=== PATIENT | female | born 1940 | race Caucasian/White ===

== ENCOUNTER 2017-07-29 00:18 | Day surgery (SDC) | payer MEDICARE, OTHER ==
[~2017-07-29 00:18] MED LIST: ACET325 PO; AMLO10 PO; AMOCLA875 PO; AMOXICILLIN; ASPI325 PO; ASPI325EC PO; ATOR10 PO; AZAT50 PO; AZIT250 PO; BUME2 PO; Benicar5 MG PO; CALC.25 PO; CALCIUM; CARV25 PO; CARV6.25 PO; CETI10; CHOL10002 PO; CLOP75 PO; CYAN100 PO; DILT180 PO; ENOX60I SUBQ; ESOM20 PO; ESOMEPRAZOLE 40 MG; FAMO20 PO; FENO145 PO; FENT50TP TOP; FERR325 PO; FOLI400 PO; FURO80 PO; Ferrous Sulfat324 MG PO; GABA100 PO; GABA300 PO; GEMF600; HYDCHL25 PO; HYDMOR2 PO; HYDR1TAB94 PO; LAVAZA; LOSA50; LOSARTAN POTAS100 MG PO; MAGCHL64ER PO; METO100 PO; METO100ER; METO100ER PO; METO2.5 PO; METO50 PO; MIRT15 PO; OLME20-12. PO; OMEG1CAP30; OMEG1CAP30 PO; OXYACE5T PO; OXYC10ER PO; OXYC5 PO; PANT40 PO; PARO20; POTA10T PO; POTCHL10ER PO; POTCHL20ER PO; PREDNISONE; PROCRIT; PROM25 PO; Procrit2000 UNIT/ INJ; Questran4 GM GT; RANI150; REMICAID; RXHYD5325 PO; Remicade100 MG IV; SENN187; SERT25 PO; SERT50 PO; SODBIC650 PO; TRAZ50 PO; WARF5 PO; ZOLP5 PO; Zithromax250 MG PO; [UNRECOGNIZED DRUG - REMARK]; [UNRECOGNIZED DRUG - REMARK]; remicade
[2017-07-29] MEDS ORDERED: ASPI81CH PO (14:38)
[2017-07-29] MEDS ORDERED: GABA300 PO (14:45)
[2017-09-08] MEDS ORDERED: MAGCHL64ER PO (14:20)
[2017-09-08] MEDS ORDERED: POTA10T PO (14:21)
[2017-09-08] MEDS ORDERED: CHOL10002 PO (14:22)
[2017-09-08] MEDS ORDERED: FAMO20 PO (14:23)
[2017-09-08] MEDS ORDERED: FERSU90EL PO (14:24)
[2017-09-08] MEDS ORDERED: ZOLP5 PO (14:25)
[2017-09-09] MEDS ORDERED: GABA300 PO (19:09)
[2017-09-10] MEDS ORDERED: Coreg12.5 MG PO (17:35)
[2017-09-10] MEDS ORDERED: ASPI325 PO (17:39)
[2017-09-10] MEDS ORDERED: AMLO5 PO (18:27)
[2018-04-12] MEDS ORDERED: Doxycycline Hy100 MG PO (16:01)
[2018-04-14] MEDS ORDERED: BUME2 PO (14:08)
[2018-04-14] MEDS ORDERED: DOXY100 PO (14:09)
== END 2017-07-29 16:35 | disposition home or self-care (01) ==
LOC: ATC 00:18
DX: K50.012 Crohn's disease of small intestine with intestinal obstruction (principal); N18.3 Chronic kidney disease, stage 3 (moderate); D63.1 Anemia in chronic kidney disease; Z87.891 Personal history of nicotine dependence
CPT/HCPCS: 96413; 96415; J1642; J1720; J7050; Q0163; Q5102-ZB

== ENCOUNTER 2017-08-05 13:40 | Day surgery (SDC) | payer MEDICARE, OTHER ==
[~2017-08-05 13:40] MED LIST changes: +ASPI81CH PO
[2017-08-05 16:58] LABS: Percent Saturation 7.4 % (15.0-50.0)
[2017-08-05 17:17] LABS: Albumin, Blood 2.9 g/dL (3.4-5.0); Anion Gap 9 mmol/L (6-16); Blood Urea Nitrogen 55 mg/dL (8-24); Bun/Creatinine Ratio 17.2 (12.0-20.0); CO2, Blood 26 mmol/L (21-32); Calcium, Blood 9.2 mg/dL (8.5-10.1); Chloride, Blood 105 mmol/L (98-108); Creatinine, Blood 3.19 mg/dL (0.40-1.00); Glomerular Filtration Rate 15 (60-); Glucose, Blood 99 mg/dL (70-99); Phosphorus, Blood 4.4 mg/dL (2.5-4.9); Potassium, Blood 4.9 mmol/L (3.5-5.5); Sodium, Blood 140 mmol/L (136-145)
[2017-09-08] MEDS ORDERED: MAGCHL64ER PO (14:20)
[2017-09-08] MEDS ORDERED: POTA10T PO (14:21)
[2017-09-08] MEDS ORDERED: CHOL10002 PO (14:22)
[2017-09-08] MEDS ORDERED: FAMO20 PO (14:23)
[2017-09-08] MEDS ORDERED: FERSU90EL PO (14:24)
[2017-09-08] MEDS ORDERED: ZOLP5 PO (14:25)
[2017-09-09] MEDS ORDERED: GABA300 PO (19:09)
[2017-09-10] MEDS ORDERED: Coreg12.5 MG PO (17:35)
[2017-09-10] MEDS ORDERED: ASPI325 PO (17:39)
[2017-09-10] MEDS ORDERED: AMLO5 PO (18:27)
[2018-04-12] MEDS ORDERED: Doxycycline Hy100 MG PO (16:01)
[2018-04-14] MEDS ORDERED: BUME2 PO (14:08)
[2018-04-14] MEDS ORDERED: DOXY100 PO (14:09)
== END 2017-08-05 16:25 | disposition home or self-care (01) ==
LOC: ATC 13:40
PROVIDERS: Internal Medicine Nephrology
DX: N18.3 Chronic kidney disease, stage 3 (moderate) (principal); D63.1 Anemia in chronic kidney disease; N25.81 Secondary hyperparathyroidism of renal origin; E55.9 Vitamin D deficiency, unspecified; E78.00 Pure hypercholesterolemia, unspecified; D51.8 Other vitamin B12 deficiency anemias; D52.8 Other folate deficiency anemias; D50.9 Iron deficiency anemia, unspecified; I08.3 Combined rheumatic disorders of mitral, aortic and tricuspid valves
CPT/HCPCS: 36591; 80069; 82607; 82728; 82746; 83540; 83550; 85018; 93306; J1642

== ENCOUNTER 2017-08-11 00:47 | Day surgery (SDC) | payer MEDICARE, OTHER ==
[2017-08-11] MEDS ORDERED: CYCL10 PO (14:49)
[2017-08-11 15:46] LABS: Albumin, Blood 3.2 g/dL (3.4-5.0); Anion Gap 9 mmol/L (6-16); Blood Urea Nitrogen 52 mg/dL (8-24); Bun/Creatinine Ratio 17.6 (12.0-20.0); CO2, Blood 24 mmol/L (21-32); Calcium, Blood 9.1 mg/dL (8.5-10.1); Chloride, Blood 103 mmol/L (98-108); Creatinine, Blood 2.96 mg/dL (0.40-1.00); Glomerular Filtration Rate 16 (60-); Glucose, Blood 85 mg/dL (70-99); Phosphorus, Blood 5.1 mg/dL (2.5-4.9); Potassium, Blood 5.5 mmol/L (3.5-5.5); Sodium, Blood 136 mmol/L (136-145)
[2017-09-08] MEDS ORDERED: MAGCHL64ER PO (14:20)
[2017-09-08] MEDS ORDERED: POTA10T PO (14:21)
[2017-09-08] MEDS ORDERED: CHOL10002 PO (14:22)
[2017-09-08] MEDS ORDERED: FAMO20 PO (14:23)
[2017-09-08] MEDS ORDERED: FERSU90EL PO (14:24)
[2017-09-08] MEDS ORDERED: ZOLP5 PO (14:25)
[2017-09-09] MEDS ORDERED: GABA300 PO (19:09)
[2017-09-10] MEDS ORDERED: Coreg12.5 MG PO (17:35)
[2017-09-10] MEDS ORDERED: ASPI325 PO (17:39)
[2017-09-10] MEDS ORDERED: AMLO5 PO (18:27)
[2018-04-12] MEDS ORDERED: Doxycycline Hy100 MG PO (16:01)
[2018-04-14] MEDS ORDERED: BUME2 PO (14:08)
[2018-04-14] MEDS ORDERED: DOXY100 PO (14:09)
== END 2017-08-11 14:55 | disposition home or self-care (01) ==
LOC: ATC 00:47
PROVIDERS: Internal Medicine Nephrology
DX: N18.4 Chronic kidney disease, stage 4 (severe) (principal); D63.1 Anemia in chronic kidney disease; N25.81 Secondary hyperparathyroidism of renal origin; E55.9 Vitamin D deficiency, unspecified
CPT/HCPCS: 36591; 80069; 85018; J1642

== ENCOUNTER 2017-08-13 00:49 | Day surgery (SDC) | payer MEDICARE, OTHER ==
[~2017-08-13 00:49] MED LIST changes: +CYCL10 PO
[2017-09-08] MEDS ORDERED: MAGCHL64ER PO (14:20)
[2017-09-08] MEDS ORDERED: POTA10T PO (14:21)
[2017-09-08] MEDS ORDERED: CHOL10002 PO (14:22)
[2017-09-08] MEDS ORDERED: FAMO20 PO (14:23)
[2017-09-08] MEDS ORDERED: FERSU90EL PO (14:24)
[2017-09-08] MEDS ORDERED: ZOLP5 PO (14:25)
[2017-09-09] MEDS ORDERED: GABA300 PO (19:09)
[2017-09-10] MEDS ORDERED: Coreg12.5 MG PO (17:35)
[2017-09-10] MEDS ORDERED: ASPI325 PO (17:39)
[2017-09-10] MEDS ORDERED: AMLO5 PO (18:27)
[2018-04-12] MEDS ORDERED: Doxycycline Hy100 MG PO (16:01)
[2018-04-14] MEDS ORDERED: BUME2 PO (14:08)
[2018-04-14] MEDS ORDERED: DOXY100 PO (14:09)
== END 2017-08-13 14:20 | disposition home or self-care (01) ==
LOC: ATC 00:49
DX: E87.5 Hyperkalemia (principal); Z45.2 Encounter for adjustment and management of vascular access device; I12.9 Hypertensive chronic kidney disease with stage 1 through stage 4 chronic kidney disease, or unspecified chronic kidney disease; N18.4 Chronic kidney disease, stage 4 (severe); D63.1 Anemia in chronic kidney disease; N25.81 Secondary hyperparathyroidism of renal origin; D50.9 Iron deficiency anemia, unspecified; E86.9 Volume depletion, unspecified; R80.9 Proteinuria, unspecified; I70.1 Atherosclerosis of renal artery; E87.2 Acidosis; E78.00 Pure hypercholesterolemia, unspecified; E55.9 Vitamin D deficiency, unspecified; Z79.899 Other long term (current) drug therapy; Z79.01 Long term (current) use of anticoagulants
CPT/HCPCS: 36591; 84132; J1642

== ENCOUNTER 2017-08-18 00:28 | Day surgery (SDC) | payer MEDICARE, OTHER ==
[2017-08-18 16:08] LABS: Albumin, Blood 2.9 g/dL (3.4-5.0); Anion Gap 10 mmol/L (6-16); Blood Urea Nitrogen 52 mg/dL (8-24); Bun/Creatinine Ratio 16.5 (12.0-20.0); CO2, Blood 22 mmol/L (21-32); Chloride, Blood 107 mmol/L (98-108); Creatinine, Blood 3.16 mg/dL (0.40-1.00); Glomerular Filtration Rate 15 (60-); Glucose, Blood 91 mg/dL (70-99); Phosphorus, Blood 5.7 mg/dL (2.5-4.9); Potassium, Blood 4.9 mmol/L (3.5-5.5); Sodium, Blood 139 mmol/L (136-145)
[2017-09-08] MEDS ORDERED: MAGCHL64ER PO (14:20)
[2017-09-08] MEDS ORDERED: POTA10T PO (14:21)
[2017-09-08] MEDS ORDERED: CHOL10002 PO (14:22)
[2017-09-08] MEDS ORDERED: FAMO20 PO (14:23)
[2017-09-08] MEDS ORDERED: FERSU90EL PO (14:24)
[2017-09-08] MEDS ORDERED: ZOLP5 PO (14:25)
[2017-09-09] MEDS ORDERED: GABA300 PO (19:09)
[2017-09-10] MEDS ORDERED: Coreg12.5 MG PO (17:35)
[2017-09-10] MEDS ORDERED: ASPI325 PO (17:39)
[2017-09-10] MEDS ORDERED: AMLO5 PO (18:27)
[2018-04-12] MEDS ORDERED: Doxycycline Hy100 MG PO (16:01)
[2018-04-14] MEDS ORDERED: BUME2 PO (14:08)
[2018-04-14] MEDS ORDERED: DOXY100 PO (14:09)
== END 2017-08-18 15:10 | disposition home or self-care (01) ==
LOC: ATC 00:28
PROVIDERS: Internal Medicine Nephrology
DX: E87.5 Hyperkalemia (principal); I12.9 Hypertensive chronic kidney disease with stage 1 through stage 4 chronic kidney disease, or unspecified chronic kidney disease; N18.4 Chronic kidney disease, stage 4 (severe); D63.1 Anemia in chronic kidney disease; N25.81 Secondary hyperparathyroidism of renal origin; D50.9 Iron deficiency anemia, unspecified; E86.9 Volume depletion, unspecified; R80.9 Proteinuria, unspecified; I70.1 Atherosclerosis of renal artery; E87.2 Acidosis; E78.00 Pure hypercholesterolemia, unspecified; E55.9 Vitamin D deficiency, unspecified; Z79.899 Other long term (current) drug therapy
CPT/HCPCS: 36591; 80069; 85018; J1642

== ENCOUNTER 2017-08-28 00:17 | Day surgery (SDC) | payer MEDICARE, OTHER ==
[2017-08-29] MEDS ORDERED: SODBIC650 PO (17:50)
== END 2017-08-28 15:58 | disposition home or self-care (01) ==
LOC: ATC 00:17
DX: Z45.2 Encounter for adjustment and management of vascular access device (principal); I12.9 Hypertensive chronic kidney disease with stage 1 through stage 4 chronic kidney disease, or unspecified chronic kidney disease; D64.9 Anemia, unspecified; N18.4 Chronic kidney disease, stage 4 (severe); D63.1 Anemia in chronic kidney disease; N25.81 Secondary hyperparathyroidism of renal origin; E78.00 Pure hypercholesterolemia, unspecified; E55.9 Vitamin D deficiency, unspecified
CPT/HCPCS: 36593; 99211; J1642; J2997

== ENCOUNTER 2017-08-29 06:51 | Day surgery (SDC) | payer MEDICARE, OTHER ==
[2017-08-29 11:26] LABS: Hematocrit 20.5 % (33.0-51.0); Hemoglobin 6.2 g/dL (11.5-16.0)
[2017-08-29 11:42] LABS: Albumin, Blood 2.3 g/dL (3.4-5.0); Anion Gap 7 mmol/L (6-16); Blood Urea Nitrogen 58 mg/dL (8-24); CO2, Blood 22 mmol/L (21-32); Calcium, Blood 8.9 mg/dL (8.5-10.1); Chloride, Blood 111 mmol/L (98-108); Glomerular Filtration Rate 17 (60-); Glucose, Blood 81 mg/dL (70-99); Phosphorus, Blood 4.5 mg/dL (2.5-4.9); Sodium, Blood 140 mmol/L (136-145)
[2017-08-29] MEDS ORDERED: SODBIC650 PO (17:50)
[2017-08-30] MEDS ORDERED: LOSA50 PO (10:07)
[2017-09-08] MEDS ORDERED: MAGCHL64ER PO (14:20)
[2017-09-08] MEDS ORDERED: POTA10T PO (14:21)
[2017-09-08] MEDS ORDERED: CHOL10002 PO (14:22)
[2017-09-08] MEDS ORDERED: FAMO20 PO (14:23)
[2017-09-08] MEDS ORDERED: FERSU90EL PO (14:24)
[2017-09-08] MEDS ORDERED: ZOLP5 PO (14:25)
[2017-09-09] MEDS ORDERED: GABA300 PO (19:09)
[2017-09-10] MEDS ORDERED: Coreg12.5 MG PO (17:35)
[2017-09-10] MEDS ORDERED: ASPI325 PO (17:39)
[2017-09-10] MEDS ORDERED: AMLO5 PO (18:27)
== END 2017-08-29 23:25 | disposition home or self-care (01) ==
LOC: ATC 06:51
PROVIDERS: Internal Medicine Nephrology
DX: I12.9 Hypertensive chronic kidney disease with stage 1 through stage 4 chronic kidney disease, or unspecified chronic kidney disease (principal); N18.4 Chronic kidney disease, stage 4 (severe); D63.1 Anemia in chronic kidney disease; N25.81 Secondary hyperparathyroidism of renal origin; D50.9 Iron deficiency anemia, unspecified; E86.9 Volume depletion, unspecified; R80.9 Proteinuria, unspecified; I70.1 Atherosclerosis of renal artery; E87.2 Acidosis; E78.00 Pure hypercholesterolemia, unspecified; E87.5 Hyperkalemia; E55.9 Vitamin D deficiency, unspecified
CPT/HCPCS: 36591; 80069; 85014; 85018; J1642

== ENCOUNTER 2017-08-29 12:20 | Observation (INO) | payer MEDICARE, OTHER ==
[~2017-08-29] VITALS: Ht 157.5 cm; Wt 63.5 kg
[2017-08-29] MEDS ORDERED: SODBIC650 PO (17:50)
[2017-08-30 06:16] LABS: BASOPHILS ABSOLUTE AUTO 0.03 K/mm3 (0.00-0.23); BASOPHILS PERCENT AUTO 0 % (0-2); EOSINOPHILS ABSOLUTE AUTO 0.38 K/mm3 (0.00-0.68); EOSINOPHILS PERCENT AUTO 4 % (0-6); Hematocrit 24.5 % (33.0-51.0); Hemoglobin 7.7 g/dL (11.5-16.0); Mean Corpuscular HGB 32.8 pg (26.0-34.0); Mean Corpuscular HGB Conc 31.4 g/dL (31.5-36.5); Mean Corpuscular Volume 104 fL (80-100); Mean Platelet Volume 10.4 fL (9.1-12.4); NRBC ABSOLUTE 0.15 K/mm3 (0.00-0.02); NRBC Auto 1.6 /100 WBC (0.0-0.2); Platelet Count 249 K/mm3 (150-400); RDW Standard Deviation 81.2 fL (35.1-46.3); Red Blood Cell Count 2.35 M/mm3 (3.80-5.20); White Blood Cell Count 9.33 K/mm3 (4.00-11.30)
[2017-08-30 06:19] LABS: IMMATURE GRAN ABSOLUTE AUTO 0.09 K/mm3 (0.00-0.10); IMMATURE GRAN PERCENT AUTO 1 % (0-1); LYMPHOCYTES ABSOLUTE AUTO 4.14 K/mm3 (0.84-5.20); LYMPHOCYTES PERCENT AUTO 44 % (21-46); MONOCYTES ABSOLUTE AUTO 1.14 K/mm3 (0.16-1.47); MONOCYTES PERCENT AUTO 12 % (4-13); NEUTROPHILS ABSOLUTE AUTO 3.55 K/mm3 (1.96-9.15); NEUTROPHILS PERCENT AUTO 38 % (41-73)
[2017-08-30 06:39] LABS: Alanine Aminotransfer (ALT/SGP 13 U/L (12-78); Albumin, Blood 2.3 g/dL (3.4-5.0); Albumin/Globulin Ratio 0.5 (0.8-1.8); Alk Phos 43 U/L (50-136); Anion Gap 8 mmol/L (6-16); Aspartate Aminotrans (AST/SGOT 13 U/L (12-37); Bilirubin, Total 0.3 mg/dL (0.1-1.0); Blood Urea Nitrogen 63 mg/dL (8-24); Bun/Creatinine Ratio 23.6 (12.0-20.0); CHOL/HDL RATIO 3.2; CO2, Blood 22 mmol/L (21-32); Calcium, Blood 8.7 mg/dL (8.5-10.1); Chloride, Blood 110 mmol/L (98-108); Cholesterol 97 mg/dL (50-200); Creatinine, Blood 2.67 mg/dL (0.40-1.00); Globulin, Blood 4.8 g/dL (2.2-4.0); Glomerular Filtration Rate 18 (60-); Glucose, Blood 81 mg/dL (70-99); HDL Cholesterol 30 mg/dL (>39); LDL/HDL RATIO 1.3; Low Density Lipoprotein Chol 39 mg/dL (0-110); Potassium, Blood 4.7 mmol/L (3.5-5.5); Sodium, Blood 140 mmol/L (136-145); Total Protein, Blood 7.1 g/dL (6.4-8.2); Triglycerides 140 mg/dL (30-160); Very Low Density Lipoprot Chol 28 mg/dL (6-32)
[2017-08-30] MEDS ORDERED: LOSA50 PO (10:07)
== END 2017-08-30 11:57 | disposition home or self-care (01) ==
LOC: ER 12:20 → MEDS 12:21 → ENPENDDIS 08-30 08:00 → MEDS 08-30 11:57
PROVIDERS: Internal Medicine
DX: I12.9 Hypertensive chronic kidney disease with stage 1 through stage 4 chronic kidney disease, or unspecified chronic kidney disease (principal); N18.9 Chronic kidney disease, unspecified; D63.1 Anemia in chronic kidney disease; I25.10 Atherosclerotic heart disease of native coronary artery without angina pectoris; R05 Cough; Z88.2 Allergy status to sulfonamides; Z88.5 Allergy status to narcotic agent; Z88.8 Allergy status to other drugs, medicaments and biological substances; Z91.041 Radiographic dye allergy status; Z79.899 Other long term (current) drug therapy; Z79.02 Long term (current) use of antithrombotics/antiplatelets; Z79.82 Long term (current) use of aspirin; Z87.891 Personal history of nicotine dependence; Z95.5 Presence of coronary angioplasty implant and graft
CPT/HCPCS: 36430; 71046; 80053; 80061; 82746; 84443; 85025; 86850; 86900; 86901; 86923; 87081; 99285; G0378; J1642; J7030; J7500; P9016

== ENCOUNTER 2017-09-07 00:23 | Day surgery (SDC) | payer MEDICARE, OTHER ==
[~2017-09-07 00:23] MED LIST changes: +LOSA50 PO
[2017-09-07 14:59] LABS: BASOPHILS ABSOLUTE AUTO 0.04 K/mm3 (0.00-0.23); BASOPHILS PERCENT AUTO 0 % (0-2); EOSINOPHILS ABSOLUTE AUTO 0.27 K/mm3 (0.00-0.68); EOSINOPHILS PERCENT AUTO 3 % (0-6); Hematocrit 26.1 % (33.0-51.0); Hemoglobin 8.1 g/dL (11.5-16.0); IMMATURE GRAN ABSOLUTE AUTO 0.04 K/mm3 (0.00-0.10); IMMATURE GRAN PERCENT AUTO 0 % (0-1); LYMPHOCYTES ABSOLUTE AUTO 4.35 K/mm3 (0.84-5.20); LYMPHOCYTES PERCENT AUTO 42 % (21-46); MONOCYTES ABSOLUTE AUTO 0.68 K/mm3 (0.16-1.47); MONOCYTES PERCENT AUTO 7 % (4-13); Mean Corpuscular HGB 32.7 pg (26.0-34.0); Mean Corpuscular Volume 105 fL (80-100); Mean Platelet Volume 10.9 fL (9.1-12.4); NEUTROPHILS ABSOLUTE AUTO 5.05 K/mm3 (1.96-9.15); NEUTROPHILS PERCENT AUTO 48 % (41-73); NRBC ABSOLUTE 0.05 K/mm3 (0.00-0.02); NRBC Auto 0.5 /100 WBC (0.0-0.2); Platelet Count 279 K/mm3 (150-400); RDW Coefficient Variation 18.6 % (11.7-14.2); RDW Standard Deviation 71.6 fL (35.1-46.3); Red Blood Cell Count 2.48 M/mm3 (3.80-5.20); White Blood Cell Count 10.43 K/mm3 (4.00-11.30)
[2017-09-07] MEDS ORDERED: Mupirocin22 GM TOP (15:02)
[2017-09-07] MEDS ORDERED: VP-VITE RX TAB1 EACH PO (15:03)
[2017-09-07] MEDS ORDERED: Amox Tr-K Clv1 EAC2 PO (15:04)
[2017-09-07 15:12] LABS: International Normalized Ratio 1.02; Prothrombin Time Results 10.6 Sec (9.7-11.5)
[2017-09-07 15:17] LABS: Bun/Creatinine Ratio 22.8 (12.0-20.0); Calcium, Blood 8.7 mg/dL (8.5-10.1); Creatinine, Blood 2.24 mg/dL (0.40-1.00); Potassium, Blood 4.1 mmol/L (3.5-5.5)
[2017-09-08] MEDS ORDERED: PANT40 PO (06:58)
[2017-09-08] MEDS ORDERED: MAGCHL64ER PO (14:20)
[2017-09-08] MEDS ORDERED: POTA10T PO (14:21)
[2017-09-08] MEDS ORDERED: CHOL10002 PO (14:22)
[2017-09-08] MEDS ORDERED: FAMO20 PO (14:23)
[2017-09-08] MEDS ORDERED: FERSU90EL PO (14:24)
[2017-09-08] MEDS ORDERED: ZOLP5 PO (14:25)
[2017-09-09] MEDS ORDERED: GABA300 PO (19:09)
[2017-09-10] MEDS ORDERED: Coreg12.5 MG PO (17:35)
[2017-09-10] MEDS ORDERED: ASPI325 PO (17:39)
[2017-09-10] MEDS ORDERED: AMLO5 PO (18:27)
== END 2017-09-07 14:45 | disposition home or self-care (01) ==
LOC: ATC 00:23
PROVIDERS: Internal Medicine Interventional Cardiology
DX: I12.9 Hypertensive chronic kidney disease with stage 1 through stage 4 chronic kidney disease, or unspecified chronic kidney disease (principal); N18.4 Chronic kidney disease, stage 4 (severe); I73.9 Peripheral vascular disease, unspecified; D63.1 Anemia in chronic kidney disease; N25.81 Secondary hyperparathyroidism of renal origin; E55.9 Vitamin D deficiency, unspecified; E78.00 Pure hypercholesterolemia, unspecified; D50.9 Iron deficiency anemia, unspecified; E87.2 Acidosis
CPT/HCPCS: 36591; 80048; 85025; 85610; J1642

== ENCOUNTER 2017-09-08 06:01 | Inpatient (IN) | payer MEDICARE, OTHER ==
[~2017-09-08] VITALS: Ht 157.5 cm; Wt 61.7 kg
[~2017-09-08 06:01] MED LIST changes: +Amox Tr-K Clv1 EAC2 PO; +Mupirocin22 GM TOP; +VP-VITE RX TAB1 EACH PO
[2017-09-08] MEDS ORDERED: PANT40 PO (06:58)
[2017-09-08 14:15] LABS: Hematocrit 32.2 % (33.0-51.0); Hemoglobin 9.7 g/dL (11.5-16.0)
[2017-09-08] MEDS ORDERED: MAGCHL64ER PO ×2 (14:20)
[2017-09-08] MEDS ORDERED: POTA10T PO ×2 (14:21)
[2017-09-08] MEDS ORDERED: CHOL10002 PO ×2 (14:22)
[2017-09-08] MEDS ORDERED: FAMO20 PO ×2 (14:23)
[2017-09-08] MEDS ORDERED: FERSU90EL PO ×2 (14:24)
[2017-09-08] MEDS ORDERED: ZOLP5 PO ×2 (14:25)
[2017-09-08 14:41] LABS: Albumin, Blood 2.5 g/dL (3.4-5.0); Anion Gap 7 mmol/L (6-16); Blood Urea Nitrogen 40 mg/dL (8-24); Bun/Creatinine Ratio 19.8 (12.0-20.0); CO2, Blood 21 mmol/L (21-32); Calcium, Blood 7.7 mg/dL (8.5-10.1); Chloride, Blood 113 mmol/L (98-108); Creatinine, Blood 2.02 mg/dL (0.40-1.00); Glomerular Filtration Rate 25 (60-); Glucose, Blood 129 mg/dL (70-99); Phosphorus, Blood 5.1 mg/dL (2.5-4.9); Potassium, Blood 5.2 mmol/L (3.5-5.5); Sodium, Blood 141 mmol/L (136-145)
[2017-09-09 04:46] LABS: Hematocrit 24.1 % (33.0-51.0); Hemoglobin 7.8 g/dL (11.5-16.0); Mean Corpuscular HGB Conc 32.4 g/dL (31.5-36.5); Mean Platelet Volume 10.3 fL (9.1-12.4); NRBC ABSOLUTE 0.04 K/mm3 (0.00-0.02); NRBC Auto 0.4 /100 WBC (0.0-0.2); Platelet Count 174 K/mm3 (150-400); RDW Coefficient Variation 21.8 % (11.7-14.2); RDW Standard Deviation 75.1 fL (35.1-46.3); Red Blood Cell Count 2.52 M/mm3 (3.80-5.20); White Blood Cell Count 11.25 K/mm3 (4.00-11.30)
[2017-09-09 04:54] LABS: Mean Corpuscular Volume 96 fL (80-100)
[2017-09-09 05:04] LABS: Magnesium, Blood 1.5 mg/dL (1.6-2.4)
[2017-09-09 05:13] LABS: Albumin, Blood 1.9 g/dL (3.4-5.0); Anion Gap 8 mmol/L (6-16); Blood Urea Nitrogen 18 mg/dL (8-24); Bun/Creatinine Ratio 12.9 (12.0-20.0); CO2, Blood 25 mmol/L (21-32); Calcium, Blood 6.5 mg/dL (8.5-10.1); Chloride, Blood 111 mmol/L (98-108); Glomerular Filtration Rate 39 (60-); Glucose, Blood 85 mg/dL (70-99); Sodium, Blood 144 mmol/L (136-145)
[2017-09-09 05:17] LABS: Potassium, Blood 3.1 mmol/L (3.5-5.5)
[2017-09-09 15:24] LABS: Magnesium, Blood 2.1 mg/dL (1.6-2.4); Phosphorus, Blood 3.5 mg/dL (2.5-4.9); Potassium, Blood 3.8 mmol/L (3.5-5.5)
[2017-09-09 18:53] LABS: HCV Non Reactive (NR)
[2017-09-09] MEDS ORDERED: GABA300 PO ×2 (19:09)
[2017-09-10 04:57] LABS: Hematocrit 31.3 % (33.0-51.0); Hemoglobin 10.1 g/dL (11.5-16.0)
[2017-09-10 05:18] LABS: Albumin, Blood 2.2 g/dL (3.4-5.0); Anion Gap 8 mmol/L (6-16); Blood Urea Nitrogen 20 mg/dL (8-24); Bun/Creatinine Ratio 11.3 (12.0-20.0); CO2, Blood 27 mmol/L (21-32); Calcium, Blood 8.1 mg/dL (8.5-10.1); Chloride, Blood 108 mmol/L (98-108); Creatinine, Blood 1.77 mg/dL (0.40-1.00); Glomerular Filtration Rate 29 (60-); Glucose, Blood 83 mg/dL (70-99); Phosphorus, Blood 2.8 mg/dL (2.5-4.9); Potassium, Blood 3.7 mmol/L (3.5-5.5); Sodium, Blood 143 mmol/L (136-145)
[2017-09-10 13:34] LABS: Creatinine, Blood 1.62 mg/dL (0.40-1.00)
[2017-09-10] MEDS ORDERED: Coreg12.5 MG PO ×2 (17:35)
[2017-09-10] MEDS ORDERED: ASPI325 PO ×2 (17:39)
[2017-09-10] MEDS ORDERED: AMLO5 PO ×2 (18:27)
== END 2017-09-10 18:40 | disposition home or self-care (01) | DRG 271 ==
LOC: ICUW 06:01 → MHTC 06:01 → ICUW 13:13 → MHTC 09-09 10:58 → ICUW 09-09 10:58
PROVIDERS: Internal Medicine Interventional Cardiology; Internal Medicine Nephrology
PROC: 04CL3ZZ Extirpation of Matter from Left Femoral Artery, Percutaneous Approach (ICD-10-PCS; principal; 2017-09-08)
PROC: 04CQ3ZZ Extirpation of Matter from Left Anterior Tibial Artery, Percutaneous Approach (ICD-10-PCS; 2017-09-08)
PROC: 04CN3ZZ Extirpation of Matter from Left Popliteal Artery, Percutaneous Approach (ICD-10-PCS; 2017-09-08)
PROC: 047N3Z1 Dilation of Left Popliteal Artery using Drug-Coated Balloon, Percutaneous Approach (ICD-10-PCS; 2017-09-08)
PROC: 047L3Z1 Dilation of Left Femoral Artery using Drug-Coated Balloon, Percutaneous Approach (ICD-10-PCS; 2017-09-08)
PROC: 05HM33Z Insertion of Infusion Device into Right Internal Jugular Vein, Percutaneous Approach (ICD-10-PCS; 2017-09-08)
PROC: B543ZZA Ultrasonography of Right Jugular Veins, Guidance (ICD-10-PCS; 2017-09-08)
PROC: 5A1D70Z Performance of Urinary Filtration, Intermittent, Less than 6 Hours Per Day (ICD-10-PCS; 2017-09-08)
PROC: 30233N1 Transfusion of Nonautologous Red Blood Cells into Peripheral Vein, Percutaneous Approach (ICD-10-PCS; 2017-09-08)
PROC: 5A1D70Z Performance of Urinary Filtration, Intermittent, Less than 6 Hours Per Day (ICD-10-PCS; 2017-09-09)
PROC: 5A1D70Z Performance of Urinary Filtration, Intermittent, Less than 6 Hours Per Day (ICD-10-PCS; 2017-09-10)
DX: I73.9 Peripheral vascular disease, unspecified (principal); K50.90 Crohn's disease, unspecified, without complications; I42.1 Obstructive hypertrophic cardiomyopathy; N18.4 Chronic kidney disease, stage 4 (severe); T82.856A Stenosis of peripheral vascular stent, initial encounter; E78.5 Hyperlipidemia, unspecified; K22.70 Barrett's esophagus without dysplasia; Z99.3 Dependence on wheelchair; I12.9 Hypertensive chronic kidney disease with stage 1 through stage 4 chronic kidney disease, or unspecified chronic kidney disease; I25.10 Atherosclerotic heart disease of native coronary artery without angina pectoris; F32.9 Major depressive disorder, single episode, unspecified; J44.9 Chronic obstructive pulmonary disease, unspecified; Z89.611 Acquired absence of right leg above knee; Z86.718 Personal history of other venous thrombosis and embolism; I65.21 Occlusion and stenosis of right carotid artery; I65.22 Occlusion and stenosis of left carotid artery; H81.10 Benign paroxysmal vertigo, unspecified ear; E21.3 Hyperparathyroidism, unspecified; E87.5 Hyperkalemia; I70.92 Chronic total occlusion of artery of the extremities; E83.42 Hypomagnesemia; D64.9 Anemia, unspecified; E83.39 Other disorders of phosphorus metabolism; E86.9 Volume depletion, unspecified; I25.9 Chronic ischemic heart disease, unspecified
CPT/HCPCS: 36430; 36556; 36591; 37225; 37229; 75630; 75710; 75774; 76937; 80048; 80069; 80074; 82565; 83735; 84100; 84132; 85014; 85018; 85025; 85027; 85347; 85610; 86706; 86850; 86900; 86901; 86923; 99152; 99153; C1725; C1752; C1769; C1885; C1887; C1894; C2623; G0257; J0881; J1200; J1642; J1644; J1720; J2250; J2720; J3010; J3475; J3480; J7030; J7040; J7060; P9016; Q9967

== ENCOUNTER 2017-09-16 09:47 | Emergency (ER) | payer MEDICARE, OTHER ==
[~2017-09-16] VITALS: Ht 157.5 cm; Wt 63.5 kg
[~2017-09-16 09:47] MED LIST changes: +AMLO5 PO; +Coreg12.5 MG PO; +FERSU90EL PO
[2017-09-16] MEDS ORDERED: Cleocin HCl300 MG PO (11:05)
== END 2017-09-16 12:08 | disposition home or self-care (01) ==
LOC: ER 09:47
DX: L03.116 Cellulitis of left lower limb (principal); Z88.8 Allergy status to other drugs, medicaments and biological substances; Z88.2 Allergy status to sulfonamides; Z88.5 Allergy status to narcotic agent; Z88.1 Allergy status to other antibiotic agents; Z79.899 Other long term (current) drug therapy; Z79.82 Long term (current) use of aspirin; I10 Essential (primary) hypertension; Z87.891 Personal history of nicotine dependence
CPT/HCPCS: 96374; 99283

== ENCOUNTER 2017-09-16 12:43 | Day surgery (SDC) | payer MEDICARE, OTHER ==
[~2017-09-16 12:43] MED LIST changes: +Cleocin HCl300 MG PO
== END 2017-09-16 17:24 | disposition home or self-care (01) ==
LOC: ATC 12:43
DX: L03.116 Cellulitis of left lower limb (principal); I25.10 Atherosclerotic heart disease of native coronary artery without angina pectoris; I10 Essential (primary) hypertension
CPT/HCPCS: 96365; J1642

== ENCOUNTER 2017-11-13 13:10 | Day surgery (SDC) | payer MEDICARE, OTHER ==
[2017-11-13 14:46] LABS: Albumin, Blood 2.6 g/dL (3.4-5.0); Anion Gap 10 mmol/L (6-16); Blood Urea Nitrogen 62 mg/dL (8-24); Bun/Creatinine Ratio 26.7 (12.0-20.0); CO2, Blood 23 mmol/L (21-32); Calcium, Blood 8.8 mg/dL (8.5-10.1); Chloride, Blood 109 mmol/L (98-108); Creatinine, Blood 2.32 mg/dL (0.40-1.00); Glomerular Filtration Rate 22 (60-); Glucose, Blood 82 mg/dL (70-99); Magnesium, Blood 1.4 mg/dL (1.6-2.4); Phosphorus, Blood 3.7 mg/dL (2.5-4.9); Potassium, Blood 4.3 mmol/L (3.5-5.5); Sodium, Blood 142 mmol/L (136-145)
[2017-11-13 15:31] LABS: Percent Saturation 101.5 % (15.0-50.0)
== END 2017-11-13 18:30 | disposition home or self-care (01) ==
LOC: TRN 13:10 → MEDS 13:11 → TRN 18:30
PROVIDERS: Internal Medicine Nephrology
DX: I12.9 Hypertensive chronic kidney disease with stage 1 through stage 4 chronic kidney disease, or unspecified chronic kidney disease (principal); N18.4 Chronic kidney disease, stage 4 (severe); D63.1 Anemia in chronic kidney disease; N25.81 Secondary hyperparathyroidism of renal origin; E87.70 Fluid overload, unspecified; E55.9 Vitamin D deficiency, unspecified; E78.00 Pure hypercholesterolemia, unspecified
CPT/HCPCS: 36415; 80069; 82728; 83540; 83550; 83735; 85018; 86850; 86900; 86901; 86923; J1642; P9016

== ENCOUNTER 2018-01-12 00:24 | Day surgery (SDC) | payer MEDICARE, OTHER ==
[2018-01-12 15:51] LABS: Percent Saturation 92.4 % (15.0-50.0)
[2018-01-12 16:11] LABS: Alanine Aminotransfer (ALT/SGP 24 U/L (12-78); Albumin, Blood 3.1 g/dL (3.4-5.0); Albumin/Globulin Ratio 0.7 (0.8-1.8); Alk Phos 56 U/L (50-136); Anion Gap 11 mmol/L (6-16); Aspartate Aminotrans (AST/SGOT 22 U/L (12-37); Bilirubin, Direct <0.1 mg/dL (0.0-0.3); Bilirubin, Indirect Unable to Calculate mg/dL (0.1-0.7); Bilirubin, Total 0.2 mg/dL (0.1-1.0); Blood Urea Nitrogen 66 mg/dL (8-24); CO2, Blood 23 mmol/L (21-32); Chloride, Blood 106 mmol/L (98-108); Creatinine, Blood 2.44 mg/dL (0.40-1.00); Globulin, Blood 4.3 g/dL (2.2-4.0); Glomerular Filtration Rate 20 (60-); Glucose, Blood 109 mg/dL (70-99); Phosphorus, Blood 4.5 mg/dL (2.5-4.9); Potassium, Blood 4.2 mmol/L (3.5-5.5); Sodium, Blood 140 mmol/L (136-145); Total Protein, Blood 7.4 g/dL (6.4-8.2)
== END 2018-01-12 17:05 | disposition home or self-care (01) ==
LOC: ATC 00:24
PROVIDERS: Internal Medicine Nephrology
DX: I12.9 Hypertensive chronic kidney disease with stage 1 through stage 4 chronic kidney disease, or unspecified chronic kidney disease (principal); N18.4 Chronic kidney disease, stage 4 (severe); N25.81 Secondary hyperparathyroidism of renal origin; D63.1 Anemia in chronic kidney disease; E87.70 Fluid overload, unspecified; I70.1 Atherosclerosis of renal artery; E78.00 Pure hypercholesterolemia, unspecified
CPT/HCPCS: 80053; 80069; 82248; 83540; 83550; 96374; 96413; 96415; J1642; J1720; J7050; Q0163; Q5103

== ENCOUNTER 2018-01-18 01:37 | Day surgery (SDC) | payer MEDICARE, OTHER | END 2018-01-18 22:43 | disposition home or self-care (01) | LOC: ATC 01:37 | DX: N18.4 Chronic kidney disease, stage 4 (severe) (principal); D63.1 Anemia in chronic kidney disease; K50.012 Crohn's disease of small intestine with intestinal obstruction; E78.5 Hyperlipidemia, unspecified ==

== ENCOUNTER 2018-06-01 00:12 | Day surgery (SDC) | payer MEDICARE, OTHER ==
[~2018-06-01 00:12] MED LIST changes: +DOXY100 PO; +Doxycycline Hy100 MG PO
== END 2018-06-01 22:37 | disposition home or self-care (01) ==
LOC: ATC 00:12
DX: I12.9 Hypertensive chronic kidney disease with stage 1 through stage 4 chronic kidney disease, or unspecified chronic kidney disease (principal); N18.4 Chronic kidney disease, stage 4 (severe); N25.81 Secondary hyperparathyroidism of renal origin; D63.1 Anemia in chronic kidney disease; R53.81 Other malaise
CPT/HCPCS: 96375; 96413; 96415; J1642; J1720; J7050; Q0163; Q5103

== ENCOUNTER 2018-07-06 10:55 | Day surgery (SDC) | payer MEDICARE, OTHER ==
[~2018-07-06] VITALS: Ht 154.9 cm; Wt 54.5 kg
--- NOTE | 2018-07-06 13:37 | NUR ---
07/06/18 1337 Jeri Padilla PATIENTS MEDIPORT D/C PER PROTOCOL. GLOVES DONNED, EXTENSION CLEANED WITH ALCOHOL, 5CC OF STERILE INJ NACL FLUSHED FOLLOWED BY 5 CC OF HEPARIN 100U/ML. CLAMP LOCKED AND NO AIR OR BUBBLES IN LINE. TEGADERM WAS REMOVED, NEEDLE REMOVED AND DISCARDED, PRESSURE AND BANDAID PLACED OVER SITE. NO BLEEDING OR SWELLING NOTED.
== END 2018-07-06 13:26 | disposition home or self-care (01) ==
LOC: ORSCSDS 10:55
PROVIDERS: Internal Medicine Gastroenterology
PROC: 0DJ08ZZ Inspection of Upper Intestinal Tract, Via Natural or Artificial Opening Endoscopic (ICD-10-PCS; principal; 2018-07-06 12:00)
DX: R10.13 Epigastric pain (principal); Z87.11 Personal history of peptic ulcer disease; D64.9 Anemia, unspecified; I25.2 Old myocardial infarction; I10 Essential (primary) hypertension; F41.8 Other specified anxiety disorders; E78.5 Hyperlipidemia, unspecified; J44.9 Chronic obstructive pulmonary disease, unspecified; Z79.01 Long term (current) use of anticoagulants; Z79.82 Long term (current) use of aspirin; Z79.899 Other long term (current) drug therapy
CPT/HCPCS: J1642

== ENCOUNTER 2018-08-03 00:12 | Day surgery (SDC) | payer MEDICARE, OTHER ==
[~2018-08-03 00:12] MED LIST changes: -OMEG1CAP30
[2018-08-07] MEDS ORDERED: Nitrostat0.4 MG SL (19:00)
[2018-08-08] MEDS ORDERED: ATOR40TA PO (14:43)
[2018-08-08] MEDS ORDERED: BUME2 PO (14:46)
[2018-08-08] MEDS ORDERED: GABA100 PO (14:49)
[2018-08-08] MEDS ORDERED: SUCR1 PO (14:49)
[2018-08-08] MEDS ORDERED: CALC.25 PO (14:52)
[2018-08-08] MEDS ORDERED: VITB2 PO (14:53)
[2018-08-08] MEDS ORDERED: VITAMIN B122500 MC1 PO (14:53)
[2018-08-08] MEDS ORDERED: FOLI400 PO (14:54)
[2018-08-08] MEDS ORDERED: Potassium99 MG PO (14:57)
[2018-08-08] MEDS ORDERED: Oyster Shell C500 MG PO (14:58)
== END 2018-08-03 11:30 | disposition home or self-care (01) ==
LOC: ATC 00:12
DX: K50.012 Crohn's disease of small intestine with intestinal obstruction (principal); E87.6 Hypokalemia
CPT/HCPCS: 36591; 84132; J1642

== ENCOUNTER 2018-08-05 13:13 | Emergency (ER) | payer MEDICARE, OTHER ==
[~2018-08-05] VITALS: Ht 154.9 cm; Wt 52.6 kg
[2018-08-05] MEDS ORDERED: PANT40 PO (14:09)
[2018-08-05] MEDS ORDERED: Augmentin 875-1 EACH PO (15:10)
[2018-08-07] MEDS ORDERED: Nitrostat0.4 MG SL (19:00)
[2018-08-08] MEDS ORDERED: ATOR40TA PO (14:43)
[2018-08-08] MEDS ORDERED: BUME2 PO (14:46)
[2018-08-08] MEDS ORDERED: GABA100 PO (14:49)
[2018-08-08] MEDS ORDERED: SUCR1 PO (14:49)
[2018-08-08] MEDS ORDERED: CALC.25 PO (14:52)
[2018-08-08] MEDS ORDERED: VITB2 PO (14:53)
[2018-08-08] MEDS ORDERED: VITAMIN B122500 MC1 PO (14:53)
[2018-08-08] MEDS ORDERED: FOLI400 PO (14:54)
[2018-08-08] MEDS ORDERED: Potassium99 MG PO (14:57)
[2018-08-08] MEDS ORDERED: Oyster Shell C500 MG PO (14:58)
== END 2018-08-05 15:15 | disposition home or self-care (01) ==
LOC: ER 13:13
DX: L03.116 Cellulitis of left lower limb (principal); Z88.2 Allergy status to sulfonamides; Z88.8 Allergy status to other drugs, medicaments and biological substances; Z88.1 Allergy status to other antibiotic agents; Z79.899 Other long term (current) drug therapy; Z79.82 Long term (current) use of aspirin; I10 Essential (primary) hypertension
CPT/HCPCS: 73700; 76882; 99283-25

== ENCOUNTER 2018-08-07 11:44 | Inpatient (IN) | payer MEDICARE, OTHER ==
[~2018-08-07] VITALS: Ht 154.9 cm; Wt 57.1 kg
[~2018-08-07 11:44] MED LIST changes: +Augmentin 875-1 EACH PO
[2018-08-07 12:50] LABS: BASOPHILS ABSOLUTE AUTO 0.03 K/mm3 (0.00-0.23); BASOPHILS PERCENT AUTO 0 % (0-2); EOSINOPHILS ABSOLUTE AUTO 0.21 K/mm3 (0.00-0.68); EOSINOPHILS PERCENT AUTO 2 % (0-6); Hematocrit 30.3 % (33.0-51.0); Hemoglobin 9.6 g/dL (11.5-16.0); IMMATURE GRAN ABSOLUTE AUTO 0.07 K/mm3 (0.00-0.10); IMMATURE GRAN PERCENT AUTO 1 % (0-1); LYMPHOCYTES ABSOLUTE AUTO 3.18 K/mm3 (0.84-5.20); LYMPHOCYTES PERCENT AUTO 25 % (21-46); MONOCYTES ABSOLUTE AUTO 1.19 K/mm3 (0.16-1.47); MONOCYTES PERCENT AUTO 9 % (4-13); Mean Corpuscular HGB 40.2 pg (26.0-34.0); Mean Corpuscular HGB Conc 31.7 g/dL (31.5-36.5); Mean Corpuscular Volume 127 fL (80-100); Mean Platelet Volume 10.8 fL (9.1-12.4); NEUTROPHILS ABSOLUTE AUTO 8.04 K/mm3 (1.96-9.15); NEUTROPHILS PERCENT AUTO 63 % (41-73); NRBC ABSOLUTE 0.07 K/mm3 (0.00-0.02); NRBC Auto 0.6 /100 WBC (0.0-0.2); Platelet Count 226 K/mm3 (150-400); RDW Coefficient Variation 18.7 % (11.7-14.2); RDW Standard Deviation 88.7 fL (35.1-46.3); Red Blood Cell Count 2.39 M/mm3 (3.80-5.20); White Blood Cell Count 12.72 K/mm3 (4.00-11.30)
[2018-08-07 13:08] LABS: Albumin, Blood 3.2 g/dL (3.4-5.0); Albumin/Globulin Ratio 0.7 (0.8-1.8); Bilirubin, Total 0.3 mg/dL (0.1-1.0); Calcium, Blood 8.7 mg/dL (8.5-10.1); Creatinine, Blood 1.41 mg/dL (0.40-1.00); Globulin, Blood 4.5 g/dL (2.2-4.0); Potassium, Blood 3.6 mmol/L (3.5-5.5); Total Protein, Blood 7.7 g/dL (6.4-8.2)
[2018-08-07] MEDS ORDERED: MINO50 PO (19:00)
[2018-08-07] MEDS ORDERED: HYDR1TAB94 PO (19:00)
[2018-08-07] MEDS ORDERED: Nitrostat0.4 MG SL ×2 (19:00)
[2018-08-08 05:55] LABS: Albumin, Blood 2.8 g/dL (3.4-5.0); Albumin/Globulin Ratio 0.7 (0.8-1.8); Bilirubin, Total 0.4 mg/dL (0.1-1.0); Bun/Creatinine Ratio 19.3 (12.0-20.0); Calcium, Blood 7.7 mg/dL (8.5-10.1); Creatinine, Blood 1.45 mg/dL (0.40-1.00); Globulin, Blood 4.1 g/dL (2.2-4.0); Potassium, Blood 3.8 mmol/L (3.5-5.5); Total Protein, Blood 6.9 g/dL (6.4-8.2)
[2018-08-08 06:21] LABS: Hematocrit 26.6 % (33.0-51.0); Hemoglobin 8.4 g/dL (11.5-16.0); Mean Corpuscular HGB Conc 31.6 g/dL (31.5-36.5); Mean Corpuscular Volume 127 fL (80-100); Mean Platelet Volume 11.3 fL (9.1-12.4); NRBC ABSOLUTE 0.05 K/mm3 (0.00-0.02); NRBC Auto 0.4 /100 WBC (0.0-0.2); Platelet Count 211 K/mm3 (150-400); RDW Coefficient Variation 18.5 % (11.7-14.2); RDW Standard Deviation 86.6 fL (35.1-46.3); White Blood Cell Count 11.61 K/mm3 (4.00-11.30)
--- NOTE | 2018-08-08 06:45 | NUR ---
RECIEVED ORDER TO BLADDER SCAN PATIENT AND STRAIGHT CATH PT. BLADDER SCAN SHOWED 673ML AND DRAINED 550ML. ALSO RECIEVED ORDER FOR 500ML BOLUS FOR DECREASED BLOOD PRESSURE.
--- NOTE | 2018-08-08 07:37 | NUR ---
*SHIFT SUMMARY* PT CAME TO ROOM VIA STRETCHER ON 2L NC. PATIENT REPORTS BEING VERY PAINFUL W A PAIN LEVEL OF 3/10. PT WAS MEDICATED ORDERED AND PAIN DECREASED TO 0/10. PTS BP DECREASED THROUGHOUT THE NIGHT. CALLED HOSPITALIST AND RECIEVED ORDER TO BLADDER SCAN PT FOR INABILITY TO URINATE, AND STRAIGHT CATH FOR BLADDER SCAN READING-SEE CHART, ALONG WITH 500CC BOLUS OF NS FOR DECREASED BP. PATIENTS BP INCREASED AFTER BOLUS. SWAB SENT FOR RESP PANEL, WOUND CULTURE TO LEFT LEG. NEED SPUTUM CULTURE, CUP AT BEDSIDE AND PATIENT AWARE OF NEED. PATIENT HAD ALSO HAD A REPORTED ALLERGY TO LEVAQUIN, AND HOSPITALIST ORDERED LEVAQUIN. PT STATES SHE DOES NOT KNOW WHAT HAPPENS WHEN TAKING THE ANTIBIOTIC AND DOES NOT THINK SHE HAS AN ALLERGY TO IT. NO ALLERGIC REACTIONS NOTED TO MEDICATION. CALL LIGHT IN REACH. PT IS ALERT AND ORIENTED. BED LOWERED AND LOCKED. PT REPORTS THAT SHE USES A WHEELCHAIR FOR AMBULATION.
[2018-08-08 08:27] LABS: Adenovirus Not Detected (NOT DETECT); Bordetella pertussis Not Detected (NOT DETECT); Chlamydophila pneumoniae Not Detected (NOT DETECT); Coronavirus 229E Not Detected (NOT DETECT); Coronavirus HKU1 Not Detected (NOT DETECT); Coronavirus NL63 Not Detected (NOT DETECT); Coronavirus OC43 Not Detected (NOT DETECT); Human Metapneumovirus Not Detected (NOT DETECT); Human Rhinovirus/Enterovirus Not Detected (NOT DETECT); Influenza A Not Detected (NOT DETECT); Influenza A/2009-H1 Not Detected (NOT DETECT); Influenza A/H1 Not Detected (NOT DETECT); Influenza A/H3 Not Detected (NOT DETECT); Influenza B Not Detected (NOT DETECT); Mycoplasma pneumoniae Not Detected (NOT DETECT); Parainfluenza Virus 1 Not Detected (NOT DETECT); Parainfluenza Virus 2 Not Detected (NOT DETECT); Parainfluenza Virus 3 Not Detected (NOT DETECT); Parainfluenza Virus 4 Not Detected (NOT DETECT); Respiratory Syncytial Virus Not Detected (NOT DETECT)
[2018-08-08] MEDS ORDERED: ATOR40TA PO ×2 (14:43)
[2018-08-08] MEDS ORDERED: BUME2 PO ×2 (14:46)
[2018-08-08] MEDS ORDERED: GABA100 PO ×2 (14:49)
[2018-08-08] MEDS ORDERED: SUCR1 PO ×2 (14:49)
[2018-08-08] MEDS ORDERED: CALC.25 PO ×2 (14:52)
[2018-08-08] MEDS ORDERED: VITB2 PO ×2 (14:53)
[2018-08-08] MEDS ORDERED: VITAMIN B122500 MC1 PO ×2 (14:53)
[2018-08-08] MEDS ORDERED: FOLI400 PO ×2 (14:54)
[2018-08-08] MEDS ORDERED: Potassium99 MG PO ×2 (14:57)
[2018-08-08] MEDS ORDERED: Oyster Shell C500 MG PO ×2 (14:58)
--- NOTE | 2018-08-08 18:32 | NUR ---
SHIFT SUMMARY DAUGHTER AT BEDSIDE FOR SHORT TIME THIS AFTERNOON. USING BEDPAN FOR STOOLS. CALLED MD ABOUT NOT VOIDING TODAY. SEE NEW ORDERS. PT REPORTS PAIN TO L KNEE IS IMPROVING AND DOESN'T HURT WHEN IT LAYS STILL AND HURTS LESS WHEN SHE MOVES HER LEG.
--- NOTE | 2018-08-08 19:27 | NUR ---
RECIEVED REPORT FROM JHONY HAGER, THAT PATIENT HAD BEEN BLADDER SCANNED AND HAD 400ML OF URINE IN BLADDER AND NEEDED TO BE STRAIGHT CATHED FOR A BLADDER SCAN GREATER THAN 250ML. PT WAS PLACED ON BEDPAN TO HAVE A BM. PT REPORTS THAT SHE URINATED WELL. BLADDER SCAN REDONE AND RESULTED IN 158ML. THE AMOUNT IS UNDER 250ML SO STRAIGHT CATH WAS NOT INDICATED.
--- NOTE | 2018-08-09 07:27 | NUR ---
*SHIFT SUMMARY* PT IS ALERT AND ORIENTED. PT STATES SHE HAS NOT HAD ANY PAIN IN HER LEG AND FEELS IT IS GETTING BETTER. PT VOIDED TWICE THROUGHOUT THE SHIFT AND DID NOT NEED TO BE STRAIGHT CATHED. PT DID STAND AND PIVOT TO BSC WITH 1 ASSIST. NO NEW CHANGES IN STATUS. CALL LIGHT IN REACH, BED LOWERED AND LOCKED. VITAL SIGNS ARE STABLE. STILL NEED SPUTUM CULTURE.
--- NOTE | 2018-08-09 11:46 | NUR ---
Spiritual care visit conducted. Patient was lying in bed and alert and tlking with anelder from [facility], Maury. They openly welcomed me into the discussion. I learned about patient's history and jose cruz background. Patient remembered that I performed the service for her son in law a few months ago. Patient expressed some concern about her current medical condition. I listened empathically, provided a calming presence and prayer. Patient and Maury joined with me in the prayer and patient said that she really appreciatied my visit.
--- NOTE | 2018-08-09 18:17 | NUR ---
PY AOX4 AND COOPERATIVE OF ALL CARE. PT RESTING IN BED. PT HAS BEEN ABLE TO VOID WELL A ONE PERSON TO BEDSIDE COMODE. PT RESTING AT THIS TIME. PT CONTINUES TO HAVE L LEG, BUT DID NOT WANT PAIN MEDS. WILL CONTINUE TO MONITOR.
--- NOTE | 2018-08-10 04:53 | NUR ---
SHIFT SUMMARY PT HAD UNREMARKABLE NIGHT. PT WAS UP LATE WATCHING TV. PT FELL ASLEEP SHORTLY AFTER REQUESTING SLEEP AID. PT CURRENTLY SLEEPING AND BREATHING EASY. PT HAD NO COMPLAINTS OR ISSUES NOTED. CALL LIGHT IN REACH.
[2018-08-10 07:03] LABS: BASOPHILS ABSOLUTE AUTO 0.01 K/mm3 (0.00-0.23); BASOPHILS PERCENT AUTO 0 % (0-2); EOSINOPHILS PERCENT AUTO 0 % (0-6); Hematocrit 26.5 % (33.0-51.0); Hemoglobin 8.4 g/dL (11.5-16.0); IMMATURE GRAN ABSOLUTE AUTO 0.06 K/mm3 (0.00-0.10); IMMATURE GRAN PERCENT AUTO 1 % (0-1); LYMPHOCYTES ABSOLUTE AUTO 3.03 K/mm3 (0.84-5.20); LYMPHOCYTES PERCENT AUTO 27 % (21-46); MONOCYTES ABSOLUTE AUTO 1.15 K/mm3 (0.16-1.47); MONOCYTES PERCENT AUTO 10 % (4-13); Mean Corpuscular HGB 40.8 pg (26.0-34.0); Mean Corpuscular HGB Conc 31.7 g/dL (31.5-36.5); Mean Corpuscular Volume 129 fL (80-100); Mean Platelet Volume 11.4 fL (9.1-12.4); NEUTROPHILS ABSOLUTE AUTO 7.12 K/mm3 (1.96-9.15); NEUTROPHILS PERCENT AUTO 63 % (41-73); NRBC ABSOLUTE 0.38 K/mm3 (0.00-0.02); NRBC Auto 3.3 /100 WBC (0.0-0.2); Platelet Count 214 K/mm3 (150-400); RDW Coefficient Variation 18.6 % (11.7-14.2); RDW Standard Deviation 89.1 fL (35.1-46.3); Red Blood Cell Count 2.06 M/mm3 (3.80-5.20); White Blood Cell Count 11.37 K/mm3 (4.00-11.30)
[2018-08-10 07:15] LABS: Albumin, Blood 2.5 g/dL (3.4-5.0); Anion Gap 7 mmol/L (6-16); Blood Urea Nitrogen 50 mg/dL (8-24); Bun/Creatinine Ratio 31.1 (12.0-20.0); CO2, Blood 27 mmol/L (21-32); Calcium, Blood 8.8 mg/dL (8.5-10.1); Chloride, Blood 105 mmol/L (98-108); Creatinine, Blood 1.61 mg/dL (0.40-1.00); Glomerular Filtration Rate 33 (60-); Glucose, Blood 88 mg/dL (70-99); Phosphorus, Blood 2.8 mg/dL (2.5-4.9); Potassium, Blood 3.7 mmol/L (3.5-5.5); Sodium, Blood 139 mmol/L (136-145)
--- NOTE | 2018-08-10 14:33 | NUR ---
Patient was lying in bed and alert when I entered the patient's room. Patient welcomed me in and immediately voiced her struggle with some mishaps with communication about her medications and the lack of attentiveness and care from a hospitalist and an orthopedic doctor. Patient stated that she already talked to someone employed by the hospital who wrote her complaint down. Patient also stated that the medical floor nurses and CNAs have been "top notch." After patient discussed these frustrations (which she did so in a calm yet poignant way) she discussed her life/family history, her spiritual background and her plans once she returns home. I listened empathically, provided companionship, highlighted what is working about her patient experience and provided prayer. Patient responded well and displayed evidence of reduced stress. Patient expressed gratitude for the visit.
--- NOTE | 2018-08-10 17:31 | NUR ---
PT AOX4 AN COOPERATIVE OF ALL CARE. PT RESTING IN BED MOST OF THE DAY. HAS BEEN AN EASY ONE PERSON TRANSFER TO BEDSIDE COMODE. PT WORKED WITH PT AND NOW HAS WHEELCHAIR NEXT TO BED IF SHE WANTS TO GET INTO IT. PT DENIES NEED OF ANY PAIN MEDS AT THIS TIME. NO DISTRESS NOTED.
[2018-08-11 06:02] LABS: BASOPHILS ABSOLUTE AUTO 0.03 K/mm3 (0.00-0.23); BASOPHILS PERCENT AUTO 0 % (0-2); EOSINOPHILS PERCENT AUTO 2 % (0-6); Hemoglobin 8.4 g/dL (11.5-16.0); IMMATURE GRAN ABSOLUTE AUTO 0.08 K/mm3 (0.00-0.10); IMMATURE GRAN PERCENT AUTO 1 % (0-1); LYMPHOCYTES PERCENT AUTO 42 % (21-46); MONOCYTES ABSOLUTE AUTO 1.15 K/mm3 (0.16-1.47); MONOCYTES PERCENT AUTO 10 % (4-13); Mean Corpuscular HGB Conc 31.1 g/dL (31.5-36.5); Mean Corpuscular Volume 129 fL (80-100); Mean Platelet Volume 11.3 fL (9.1-12.4); NEUTROPHILS ABSOLUTE AUTO 4.93 K/mm3 (1.96-9.15); NEUTROPHILS PERCENT AUTO 44 % (41-73); NRBC ABSOLUTE 0.63 K/mm3 (0.00-0.02); NRBC Auto 5.7 /100 WBC (0.0-0.2); Platelet Count 223 K/mm3 (150-400); RDW Coefficient Variation 18.2 % (11.7-14.2); RDW Standard Deviation 85.9 fL (35.1-46.3); White Blood Cell Count 11.09 K/mm3 (4.00-11.30)
--- NOTE | 2018-08-11 06:19 | NUR ---
NOC SHIFT SUMMARY PT WAS HAVING SOME SIGNIFICANT PAIN AT THE BEGINING OF THIS SHIFT, IN AFFTECTED LIMB. TREATED WITH FENTANYL, ULTRAM, AND GABAPENTIN TO GOOD EFFECT. AND PT WSA ABLE TO SLEEP. SHE HAS BEEN PLEASANT AND COOPERATIVE WITH CARE. AAOX4, RESP EVEN AND UNLABORED. ORALIAENLTY APPEARS IN NO ACUTE DISTRESS. WILL CONTINUE TO MONITOR.
[2018-08-11] MEDS ORDERED: DOXY100 PO ×2 (18:00)
[2018-08-11] MEDS ORDERED: TRAM50 PO ×2 (18:01)
[2018-08-11] MEDS ORDERED: LIDO700A20 TOP ×2 (18:02)
--- NOTE | 2018-08-11 19:34 | NUR ---
DISCHARGE INSTRUCTIONS COMPLETED AND DISCUSSED WITH PT EXPRESSING UNDERSTANDING. SCRIPTS FAXED TO [facility]. HOME O2 EVAL COMPLETED WITH PT WHEELING HERSELF AROUND IN HER W/C. TO [facility]B VIA W/C WITH NARGIS.
[2018-08-12] MEDS ORDERED: Zofran4 MG PO (14:48)
== END 2018-08-11 18:47 | disposition home or self-care (01) | DRG 602 ==
LOC: ER 11:44 → MEDS 20:30
PROVIDERS: Family Medicine; Physician Assistant; ADMIT Internal Medicine
DX: L03.116 Cellulitis of left lower limb (principal); J96.21 Acute and chronic respiratory failure with hypoxia; N17.9 Acute kidney failure, unspecified; K50.90 Crohn's disease, unspecified, without complications; I12.9 Hypertensive chronic kidney disease with stage 1 through stage 4 chronic kidney disease, or unspecified chronic kidney disease; N18.3 Chronic kidney disease, stage 3 (moderate); D63.1 Anemia in chronic kidney disease; I25.10 Atherosclerotic heart disease of native coronary artery without angina pectoris; I73.9 Peripheral vascular disease, unspecified; Z89.611 Acquired absence of right leg above knee; K21.9 Gastro-esophageal reflux disease without esophagitis; B95.62 Methicillin resistant Staphylococcus aureus infection as the cause of diseases classified elsewhere
CPT/HCPCS: 36415; 71046; 73562-LT; 73700; 76882; 80053; 80069; 82607; 82746; 83605; 83880; 84484; 85025; 85027; 87040; 87070; 87075; 87077; 87081; 87147; 87186; 87205; 87486; 87581; 87633; 87798; 93005; 93010; 93926; 94760; 94761; 96361; 96374; 96375; 96376; 97110; 97161; 97530; 99283-25; 99285-25; J1170; J1642; J1956; J2405; J2930; J3010; J7030; J7050; J7120; J7500

== ENCOUNTER 2018-08-12 11:50 | Emergency (ER) | payer MEDICARE, OTHER ==
[~2018-08-12] VITALS: Ht 154.9 cm; Wt 54.4 kg
[~2018-08-12 11:50] MED LIST changes: +ATOR40TA PO; +LIDO700A20 TOP; +MINO50 PO; +Nitrostat0.4 MG SL; +Oyster Shell C500 MG PO; +Potassium99 MG PO; +SUCR1 PO; +TRAM50 PO; +VITAMIN B122500 MC1 PO; +VITB2 PO
[2018-08-12 12:43] LABS: BASOPHILS ABSOLUTE AUTO 0.01 K/mm3 (0.00-0.23); BASOPHILS PERCENT AUTO 0 % (0-2); EOSINOPHILS ABSOLUTE AUTO 0.06 K/mm3 (0.00-0.68); EOSINOPHILS PERCENT AUTO 1 % (0-6); Hematocrit 29.1 % (33.0-51.0); Hemoglobin 9.6 g/dL (11.5-16.0); IMMATURE GRAN ABSOLUTE AUTO 0.08 K/mm3 (0.00-0.10); IMMATURE GRAN PERCENT AUTO 1 % (0-1); LYMPHOCYTES ABSOLUTE AUTO 0.45 K/mm3 (0.84-5.20); LYMPHOCYTES PERCENT AUTO 4 % (21-46); MONOCYTES ABSOLUTE AUTO 0.25 K/mm3 (0.16-1.47); MONOCYTES PERCENT AUTO 2 % (4-13); Mean Corpuscular HGB 41.7 pg (26.0-34.0); Mean Corpuscular Volume 127 fL (80-100); Mean Platelet Volume 11.3 fL (9.1-12.4); NEUTROPHILS ABSOLUTE AUTO 11.09 K/mm3 (1.96-9.15); NEUTROPHILS PERCENT AUTO 93 % (41-73); NRBC ABSOLUTE 0.55 K/mm3 (0.00-0.02); NRBC Auto 4.6 /100 WBC (0.0-0.2); Platelet Count 234 K/mm3 (150-400); RDW Coefficient Variation 17.9 % (11.7-14.2); White Blood Cell Count 11.94 K/mm3 (4.00-11.30)
[2018-08-12 13:02] LABS: Albumin, Blood 2.7 g/dL (3.4-5.0); Albumin/Globulin Ratio 0.7 (0.8-1.8); Bilirubin, Total 0.4 mg/dL (0.1-1.0); Bun/Creatinine Ratio 33.8 (12.0-20.0); Calcium, Blood 8.3 mg/dL (8.5-10.1); Creatinine, Blood 1.42 mg/dL (0.40-1.00); Globulin, Blood 3.8 g/dL (2.2-4.0); Potassium, Blood 3.5 mmol/L (3.5-5.5); Total Protein, Blood 6.5 g/dL (6.4-8.2)
--- NOTE | 2018-08-12 13:46 | NUR ---
Spiritual care visit conducted. Patient was lying on bed and alert with daughter, Madeleine, bedside when I entered patient's room . Patient voiced her frustrations saying that she should not have been discharged and that she was disappointed to be back. Patient was grateful for the nausea meds she had received and was hoping for a better visit to the hospital this time. I listened empathically, highlighted what has gone well, provided spiritual guidance and prayer. Patient and Madeleine responded well and expressed gratitude for the visit.
[2018-08-12] MEDS ORDERED: Zofran4 MG PO (14:48)
== END 2018-08-12 14:50 | disposition home or self-care (01) ==
LOC: ER 11:50
PROVIDERS: Emergency Medicine
DX: E86.0 Dehydration (principal); R11.2 Nausea with vomiting, unspecified; M25.562 Pain in left knee; I12.9 Hypertensive chronic kidney disease with stage 1 through stage 4 chronic kidney disease, or unspecified chronic kidney disease; N18.3 Chronic kidney disease, stage 3 (moderate); D64.9 Anemia, unspecified; Z79.899 Other long term (current) drug therapy
CPT/HCPCS: 80053; 83690; 85025; 96360; 99283-25; J1642; J7030

== ENCOUNTER 2018-08-24 12:21 | Inpatient (IN) | payer MEDICARE, OTHER ==
[~2018-08-24] VITALS: Ht 154.9 cm; Wt 53.9 kg
[~2018-08-24 12:21] MED LIST changes: -AMLO5 PO; +SERT100 PO; -SERT25 PO; +Zofran4 MG PO
[2018-08-24 13:28] LABS: BASOPHILS ABSOLUTE AUTO 0.03 K/mm3 (0.00-0.23); BASOPHILS PERCENT AUTO 0 % (0-2); EOSINOPHILS ABSOLUTE AUTO 0.04 K/mm3 (0.00-0.68); EOSINOPHILS PERCENT AUTO 0 % (0-6); Hematocrit 27.1 % (33.0-51.0); Hemoglobin 8.9 g/dL (11.5-16.0); IMMATURE GRAN PERCENT AUTO 1 % (0-1); LYMPHOCYTES PERCENT AUTO 7 % (21-46); MONOCYTES ABSOLUTE AUTO 1.09 K/mm3 (0.16-1.47); MONOCYTES PERCENT AUTO 8 % (4-13); Mean Corpuscular HGB 39.4 pg (26.0-34.0); Mean Corpuscular HGB Conc 32.8 g/dL (31.5-36.5); NEUTROPHILS ABSOLUTE AUTO 11.46 K/mm3 (1.96-9.15); NEUTROPHILS PERCENT AUTO 84 % (41-73); Platelet Count 253 K/mm3 (150-400); RDW Coefficient Variation 16.2 % (11.7-14.2); RDW Standard Deviation 71.9 fL (35.1-46.3); Red Blood Cell Count 2.26 M/mm3 (3.80-5.20); White Blood Cell Count 13.62 K/mm3 (4.00-11.30)
[2018-08-24 14:01] LABS: Mean Corpuscular Volume 120 fL (80-100)
[2018-08-24 14:41] LABS: Troponin I 0.033 ng/mL (0.000-0.040)
[2018-08-24 15:02] LABS: Albumin, Blood 2.3 g/dL (3.4-5.0); Albumin/Globulin Ratio 0.5 (0.8-1.8); Bilirubin, Total 0.6 mg/dL (0.1-1.0); Bun/Creatinine Ratio 30.9 (12.0-20.0); Calcium, Blood 5.6 mg/dL (8.5-10.1); Creatinine, Blood 1.91 mg/dL (0.40-1.00); Globulin, Blood 4.6 g/dL (2.2-4.0); Potassium, Blood 3.8 mmol/L (3.5-5.5); Total Protein, Blood 6.9 g/dL (6.4-8.2)
[2018-08-24] MEDS ORDERED: VITAMIN B-121000 MCG PO (16:56)
[2018-08-24] MEDS ORDERED: NITR.4SL SL (17:38)
--- NOTE | 2018-08-25 01:03 | NUR ---
77 year old Female admitted with complaints of weakness and hypocalemia electrolyte imbalance. She has hx of active MRSA last admission August 08 2018 in lt le cellulitis. She has mediport accessed and recieving iv fluids at 75 ml hr. She has poor appetite. Dietary referral was made. She is wc only at home and lives alone. She has caregiver assist 3 days a week. DNR status has chronic kidney problems sees DR Karin Burk. 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 She has lt le fem pop bypass 02/19/18. . Lt LE venous doppler done in ER neg for DVT but shows small fluid collection. Takes ultram at home for pain , had ultram and tylenol in ER prior to admission. She has low bp 95/42 p 88 sat 97% room air on admission.
[2018-08-25 05:02] LABS: Bun/Creatinine Ratio 33.1 (12.0-20.0); Calcium, Blood 6.1 mg/dL (8.5-10.1); Creatinine, Blood 1.69 mg/dL (0.40-1.00); Magnesium, Blood 2.2 mg/dL (1.6-2.4); Potassium, Blood 3.3 mmol/L (3.5-5.5)
--- NOTE | 2018-08-25 07:31 | NUR ---
ua sent this am pt requested bedpan x 2. medicated x 1 with tylenol. calcium iv and oral potassium given this am. in contact for mrsa
[2018-08-25 07:58] LABS: Source, Urine Catheter
[2018-08-25 08:10] LABS: Bilirubin, Urine Neg (Neg); Blood, Urine 1+ (Neg); Glucose Qualitative, Urine Neg (Neg); Ketones, Urine Neg (Neg); Leukocyte Esterase, Urine Neg (Neg); Nitrite, Urine Neg (Neg); Protein, Urine 1+ (Neg); Urobilinogen, Urine NORM (Normal)
[2018-08-25 08:23] LABS: Appearance, Urine Clear (Clear); Color, Urine Yellow (P-Yellow)
[2018-08-25 08:25] LABS: White Blood Cells, Urine 0-2 /hpf (0-5)
[2018-08-25 08:26] LABS: Bacteria Few /hpf; Squamous Epithelial Cells Rare /hpf (Few); Transitional Epithelial Cells Rare /hpf (0-Rare)
--- NOTE | 2018-08-25 10:35 | NUR ---
Patient gave permission for patient care and to access medical chart.
--- NOTE | 2018-08-25 17:40 | NUR ---
PT COMPLAINED OF SHOULDER PAIN TODAY. SHE GOT AN ORDER FOR HEAT THERAPY WHICH HAS SINCE BEEN SET UP. SHE HAS RECIEVED TYLENOL FOR PAIN TODAY ALSO. NO COMPLAINTS OF NAUSEA. SHE GOT UP TO THE BATHROOM WITH ASSISTANCE TODAY. SHE TRANSFERS TO HER WHEELCHAIR WELL. MIKE IS AT THE BEDSIDE NOW. WILL CONTINUE TO MONITOR
[2018-08-26 04:58] LABS: Bun/Creatinine Ratio 28.9 (12.0-20.0); Calcium, Blood 6.9 mg/dL (8.5-10.1); Creatinine, Blood 1.8 mg/dL (0.40-1.00); Magnesium, Blood 2.1 mg/dL (1.6-2.4); Phosphorus, Blood 3.6 mg/dL (2.5-4.9); Potassium, Blood 3.8 mmol/L (3.5-5.5)
--- NOTE | 2018-08-26 05:32 | NUR ---
LYING IN SEMI FOWLERS WITH EYES CLOSED. MEDICATED X1 FOR BREAKTHROUGH PAIN. USES K-PAD AND REPOSITIONS SELF FOR COMFORT. DENIES FURTHER NEEDS AT THIS TIME. SAFETY MEASURES IN PLACE. WILL GIVE HAND OFF TO ONCOMING SHIFT USING SBAR,
[2018-08-26] MEDS ORDERED: CHOL10002 (11:52)
[2018-08-26] MEDS ORDERED: MAGOXI400 PO (11:53)
[2018-08-26] MEDS ORDERED: MIRT15ST MM (11:53)
[2018-08-26] MEDS ORDERED: TUMS500 MG PO (11:54)
[2018-08-26] MEDS ORDERED: CALC.25 PO (11:55)
--- NOTE | 2018-08-26 14:15 | NUR ---
DISCHARGE DISCHARGE MEDICATIONS AND INSTRUCTIONS EXPLAINED TO PATIENT AND PATIENT'S CAREGIVER. THEY STATED UNDERSTANDING. MEDIPORT DEACCESSED WITHOUT DIFFICULTY. BELONGINGS WITH PATIENT. PATIENT TRANSFERED TO PRIVATE VEHICLE VIA WHEELCHAIR.
== END 2018-08-26 14:13 | disposition home or self-care (01) | DRG 641 ==
LOC: ER 12:21 → MEDS 17:59 → ENPENDDIS 08-26 10:12 → MEDS 08-26 14:13
PROVIDERS: Internal Medicine; ADMIT Hospitalist
DX: E83.42 Hypomagnesemia (principal); K50.90 Crohn's disease, unspecified, without complications; E44.0 Moderate protein-calorie malnutrition; E83.51 Hypocalcemia; I12.9 Hypertensive chronic kidney disease with stage 1 through stage 4 chronic kidney disease, or unspecified chronic kidney disease; N18.3 Chronic kidney disease, stage 3 (moderate); I25.10 Atherosclerotic heart disease of native coronary artery without angina pectoris; D63.1 Anemia in chronic kidney disease; F32.9 Major depressive disorder, single episode, unspecified; E78.5 Hyperlipidemia, unspecified; Z86.73 Personal history of transient ischemic attack (TIA), and cerebral infarction without residual deficits; I73.9 Peripheral vascular disease, unspecified; I25.2 Old myocardial infarction; Z86.718 Personal history of other venous thrombosis and embolism; Z89.511 Acquired absence of right leg below knee; Z87.891 Personal history of nicotine dependence; Z68.21 Body mass index [BMI] 21.0-21.9, adult; Z66 Do not resuscitate
CPT/HCPCS: 36415; 71046; 80048; 80053; 81001; 82330; 82652; 83735; 83880; 84100; 84484; 85025; 93005; 93010; 93971; 96361; 96365; 96366; 96375; 99285-25; J0610; J1642; J1650; J3475; J7030; J7500

== ENCOUNTER 2018-09-02 13:12 | Day surgery (SDC) | payer MEDICARE, OTHER ==
[~2018-09-02 13:12] MED LIST changes: +CHOL10002; +MAGOXI400 PO; +MIRT15ST MM; +NITR.4SL SL; +TUMS500 MG PO; +VITAMIN B-121000 MCG PO
[2018-09-02 14:34] LABS: Alanine Aminotransfer (ALT/SGP 33 U/L (12-78); Albumin, Blood 2.6 g/dL (3.4-5.0); Albumin/Globulin Ratio 0.5 (0.8-1.8); Alk Phos 85 U/L (50-136); Anion Gap 8 mmol/L (6-16); Bilirubin, Direct <0.1 mg/dL (0.0-0.3); Bilirubin, Indirect Unable to Calculate mg/dL (0.1-0.7); Bilirubin, Total 0.2 mg/dL (0.1-1.0); Blood Urea Nitrogen 39 mg/dL (8-24); Bun/Creatinine Ratio 24.4 (12.0-20.0); CO2, Blood 28 mmol/L (21-32); Calcium, Blood 10.8 mg/dL (8.5-10.1); Chloride, Blood 103 mmol/L (98-108); Globulin, Blood 4.8 g/dL (2.2-4.0); Glomerular Filtration Rate 33 (60-); Glucose, Blood 110 mg/dL (70-99); Phosphorus, Blood 3.9 mg/dL (2.5-4.9); Sodium, Blood 139 mmol/L (136-145); Total Protein, Blood 7.4 g/dL (6.4-8.2)
[2018-09-02 14:36] LABS: Aspartate Aminotrans (AST/SGOT 42 U/L (12-37)
== END 2018-09-02 13:45 | disposition home or self-care (01) ==
LOC: ATC 13:12
PROVIDERS: Internal Medicine Nephrology
DX: N18.3 Chronic kidney disease, stage 3 (moderate) (principal); D63.1 Anemia in chronic kidney disease; N25.81 Secondary hyperparathyroidism of renal origin; E55.9 Vitamin D deficiency, unspecified; E78.00 Pure hypercholesterolemia, unspecified; R76.9 Abnormal immunological finding in serum, unspecified; R94.5 Abnormal results of liver function studies; R94.6 Abnormal results of thyroid function studies; D50.9 Iron deficiency anemia, unspecified; E87.6 Hypokalemia; K50.012 Crohn's disease of small intestine with intestinal obstruction
CPT/HCPCS: 36591; 80048; 80076; 82248; 84100; J1642

== ENCOUNTER → 2018-09-06 | Outpatient (CLI) | payer MEDICARE, OTHER | END | disposition home or self-care (01) | LOC: LAB 15:40 → LAB SHORT 15:40 → LAB FUT 09-02 12:55 | PROVIDERS: Internal Medicine | DX: E88.09 Other disorders of plasma-protein metabolism, not elsewhere classified (principal) | CPT/HCPCS: 81050; 84156 ==

== ENCOUNTER 2018-09-09 00:04 | Day surgery (SDC) | payer MEDICARE, OTHER ==
[2018-09-09 12:07] LABS: BASOPHILS ABSOLUTE AUTO 0.03 K/mm3 (0.00-0.23); BASOPHILS PERCENT AUTO 0 % (0-2); EOSINOPHILS ABSOLUTE AUTO 0.23 K/mm3 (0.00-0.68); EOSINOPHILS PERCENT AUTO 3 % (0-6); Hematocrit 29.1 % (33.0-51.0); Hemoglobin 8.9 g/dL (11.5-16.0); IMMATURE GRAN PERCENT AUTO 1 % (0-1); LYMPHOCYTES ABSOLUTE AUTO 2.59 K/mm3 (0.84-5.20); LYMPHOCYTES PERCENT AUTO 28 % (21-46); MONOCYTES ABSOLUTE AUTO 0.73 K/mm3 (0.16-1.47); MONOCYTES PERCENT AUTO 8 % (4-13); Mean Corpuscular HGB 38.4 pg (26.0-34.0); Mean Corpuscular HGB Conc 30.6 g/dL (31.5-36.5); Mean Corpuscular Volume 125 fL (80-100); Mean Platelet Volume 10.9 fL (9.1-12.4); NEUTROPHILS ABSOLUTE AUTO 5.57 K/mm3 (1.96-9.15); NEUTROPHILS PERCENT AUTO 60 % (41-73); NRBC Auto 2.2 /100 WBC (0.0-0.2); Platelet Count 445 K/mm3 (150-400); RDW Coefficient Variation 18.1 % (11.7-14.2); RDW Standard Deviation 82.7 fL (35.1-46.3); Red Blood Cell Count 2.32 M/mm3 (3.80-5.20); White Blood Cell Count 9.25 K/mm3 (4.00-11.30)
[2018-09-09 12:42] LABS: Percent Saturation 20.6 % (15.0-50.0)
== END 2018-09-09 11:10 | disposition home or self-care (01) ==
LOC: ATC 00:04
PROVIDERS: Internal Medicine Hematology & Oncology
DX: N18.3 Chronic kidney disease, stage 3 (moderate) (principal); D63.1 Anemia in chronic kidney disease; D75.1 Secondary polycythemia; D50.9 Iron deficiency anemia, unspecified; R31.9 Hematuria, unspecified; K50.012 Crohn's disease of small intestine with intestinal obstruction; E87.6 Hypokalemia; N25.81 Secondary hyperparathyroidism of renal origin; E55.9 Vitamin D deficiency, unspecified; E78.00 Pure hypercholesterolemia, unspecified; R76.9 Abnormal immunological finding in serum, unspecified; R94.5 Abnormal results of liver function studies; R94.6 Abnormal results of thyroid function studies
CPT/HCPCS: 36591; 82728; 83540; 83550; 85025; J1642

== ENCOUNTER 2018-10-28 15:23 | Inpatient (IN) | payer MEDICARE, OTHER ==
[~2018-10-28] VITALS: Ht 154.9 cm; Wt 56.4 kg
[~2018-10-28 15:23] MED LIST changes: -CHOL10002; -Coreg12.5 MG PO; +LOVAZA1 GM PO; +VITAMIN D-32000 UNIT PO
[2018-10-28] MEDS ORDERED: Zantac150 MG PO (15:56)
[2018-10-28] MEDS ORDERED: Bumetanide2 MG PO (15:57)
[2018-10-28 17:45] LABS: BASOPHILS ABSOLUTE AUTO 0.02 K/mm3 (0.00-0.23); BASOPHILS PERCENT AUTO 0 % (0-2); EOSINOPHILS ABSOLUTE AUTO 0.22 K/mm3 (0.00-0.68); EOSINOPHILS PERCENT AUTO 2 % (0-6); Hematocrit 20.2 % (33.0-51.0); Hemoglobin 6.2 g/dL (11.5-16.0); IMMATURE GRAN ABSOLUTE AUTO 0.08 K/mm3 (0.00-0.10); IMMATURE GRAN PERCENT AUTO 1 % (0-1); LYMPHOCYTES ABSOLUTE AUTO 3.51 K/mm3 (0.84-5.20); LYMPHOCYTES PERCENT AUTO 29 % (21-46); MONOCYTES PERCENT AUTO 10 % (4-13); Mean Corpuscular HGB 37.1 pg (26.0-34.0); Mean Corpuscular HGB Conc 30.7 g/dL (31.5-36.5); Mean Corpuscular Volume 121 fL (80-100); Mean Platelet Volume 11.1 fL (9.1-12.4); NEUTROPHILS ABSOLUTE AUTO 7.24 K/mm3 (1.96-9.15); NEUTROPHILS PERCENT AUTO 59 % (41-73); NRBC ABSOLUTE 0.04 K/mm3 (0.00-0.02); NRBC Auto 0.3 /100 WBC (0.0-0.2); Platelet Count 284 K/mm3 (150-400); RDW Coefficient Variation 18.5 % (11.7-14.2); Red Blood Cell Count 1.67 M/mm3 (3.80-5.20); White Blood Cell Count 12.27 K/mm3 (4.00-11.30)
[2018-10-28 18:13] LABS: Source, Urine Clean Catch
[2018-10-28 18:13] LABS: Albumin/Globulin Ratio 0.7 (0.8-1.8); Bilirubin, Total 0.2 mg/dL (0.1-1.0); Bun/Creatinine Ratio 31.9 (12.0-20.0); Creatinine, Blood 2.29 mg/dL (0.40-1.00); Globulin, Blood 4.1 g/dL (2.2-4.0); Potassium, Blood 2.7 mmol/L (3.5-5.5); Total Protein, Blood 7.1 g/dL (6.4-8.2)
[2018-10-28 18:17] LABS: International Normalized Ratio 0.96; Prothrombin Time Results 10.2 Sec (9.7-11.5)
[2018-10-28 18:32] LABS: Bilirubin, Urine Neg (Neg); Blood, Urine Neg (Neg); Glucose Qualitative, Urine Neg (Neg); Ketones, Urine Neg (Neg); Leukocyte Esterase, Urine 1+ (Neg); Nitrite, Urine Neg (Neg); Protein, Urine 1+ (Neg); Urobilinogen, Urine NORM (Normal)
[2018-10-28 18:53] LABS: Appearance, Urine Clear (Clear); Color, Urine Yellow (P-Yellow)
[2018-10-28 19:07] LABS: Bacteria Rare /hpf; Red Blood Cells, Urine Not Seen /hpf (0-2); Squamous Epithelial Cells Rare /hpf (Few); White Blood Cells, Urine Rare /hpf (0-5)
[2018-10-28] MEDS ORDERED: METO2.5 PO (19:42)
[2018-10-28] MEDS ORDERED: SUCR1 PO (20:07)
[2018-10-28] MEDS ORDERED: ALLEGRA ALLERG180 MG PO (20:07)
[2018-10-28] MEDS ORDERED: MILK THISTLE175 MG PO (20:08)
[2018-10-29 02:52] LABS: BASOPHILS ABSOLUTE AUTO 0.03 K/mm3 (0.00-0.23); BASOPHILS PERCENT AUTO 0 % (0-2); EOSINOPHILS ABSOLUTE AUTO 0.24 K/mm3 (0.00-0.68); EOSINOPHILS PERCENT AUTO 2 % (0-6); Hematocrit 29.3 % (33.0-51.0); Hemoglobin 9.3 g/dL (11.5-16.0); IMMATURE GRAN ABSOLUTE AUTO 0.06 K/mm3 (0.00-0.10); IMMATURE GRAN PERCENT AUTO 1 % (0-1); LYMPHOCYTES ABSOLUTE AUTO 2.87 K/mm3 (0.84-5.20); LYMPHOCYTES PERCENT AUTO 27 % (21-46); MONOCYTES ABSOLUTE AUTO 1.01 K/mm3 (0.16-1.47); MONOCYTES PERCENT AUTO 9 % (4-13); Mean Corpuscular HGB 33.8 pg (26.0-34.0); Mean Corpuscular HGB Conc 31.7 g/dL (31.5-36.5); Mean Platelet Volume 11.1 fL (9.1-12.4); NEUTROPHILS ABSOLUTE AUTO 6.57 K/mm3 (1.96-9.15); NEUTROPHILS PERCENT AUTO 61 % (41-73); NRBC ABSOLUTE 0.03 K/mm3 (0.00-0.02); NRBC Auto 0.3 /100 WBC (0.0-0.2); Platelet Count 249 K/mm3 (150-400); RDW Coefficient Variation 22.4 % (11.7-14.2); RDW Standard Deviation 82.3 fL (35.1-46.3); Red Blood Cell Count 2.75 M/mm3 (3.80-5.20); White Blood Cell Count 10.78 K/mm3 (4.00-11.30)
[2018-10-29 02:53] LABS: Mean Corpuscular Volume 107 fL (80-100)
[2018-10-29 03:07] LABS: Calcium, Blood 8.6 mg/dL (8.5-10.1); Creatinine, Blood 2.09 mg/dL (0.40-1.00); Potassium, Blood 3.5 mmol/L (3.5-5.5)
--- NOTE | 2018-10-29 06:35 | NUR ---
A+O, ABX INFUSING, CALL LIGHT in reach, room air, medication not given as prescribed due to misunderstanding, was told medication was given but source was refering to oral not IV, informed cn and pharmacy who rescheduled medication, will report to day shift, will continue to monitor and treat until provide sbar report to day shift
[2018-10-29 08:34] LABS: BASOPHILS ABSOLUTE AUTO 0.03 K/mm3 (0.00-0.23); BASOPHILS PERCENT AUTO 0 % (0-2); EOSINOPHILS ABSOLUTE AUTO 0.23 K/mm3 (0.00-0.68); EOSINOPHILS PERCENT AUTO 3 % (0-6); Hematocrit 30.3 % (33.0-51.0); Hemoglobin 9.6 g/dL (11.5-16.0); IMMATURE GRAN ABSOLUTE AUTO 0.09 K/mm3 (0.00-0.10); IMMATURE GRAN PERCENT AUTO 1 % (0-1); LYMPHOCYTES ABSOLUTE AUTO 2.13 K/mm3 (0.84-5.20); LYMPHOCYTES PERCENT AUTO 24 % (21-46); MONOCYTES ABSOLUTE AUTO 0.82 K/mm3 (0.16-1.47); MONOCYTES PERCENT AUTO 9 % (4-13); Mean Corpuscular HGB 33.8 pg (26.0-34.0); Mean Corpuscular HGB Conc 31.7 g/dL (31.5-36.5); Mean Corpuscular Volume 107 fL (80-100); Mean Platelet Volume 11.3 fL (9.1-12.4); NEUTROPHILS ABSOLUTE AUTO 5.75 K/mm3 (1.96-9.15); NEUTROPHILS PERCENT AUTO 64 % (41-73); NRBC ABSOLUTE 0.04 K/mm3 (0.00-0.02); NRBC Auto 0.4 /100 WBC (0.0-0.2); Platelet Count 275 K/mm3 (150-400); RDW Coefficient Variation 22.6 % (11.7-14.2); RDW Standard Deviation 83.5 fL (35.1-46.3); Red Blood Cell Count 2.84 M/mm3 (3.80-5.20); White Blood Cell Count 9.05 K/mm3 (4.00-11.30)
--- NOTE | 2018-10-29 12:30 | NUR ---
History, Chart, Medications and Allergies reviewed before start of procedure. Patient confirms NPO status and agrees with scheduled surgery. Lungs clear T/O to Auscultation.
--- NOTE | 2018-10-29 12:44 | NUR ---
10/29/18 1244 Madeleine Lee History, Chart, Medications and Allergies reviewed before start of procedure. MONITOR INTACT WITH CONTINUOUS PULSE OXIMETRY AND INTERMITTENT BP.
[2018-10-29 14:36] LABS: BASOPHILS ABSOLUTE AUTO 0.02 K/mm3 (0.00-0.23); BASOPHILS PERCENT AUTO 0 % (0-2); EOSINOPHILS ABSOLUTE AUTO 0.24 K/mm3 (0.00-0.68); EOSINOPHILS PERCENT AUTO 3 % (0-6); Hematocrit 28.5 % (33.0-51.0); Hemoglobin 9.2 g/dL (11.5-16.0); IMMATURE GRAN ABSOLUTE AUTO 0.09 K/mm3 (0.00-0.10); IMMATURE GRAN PERCENT AUTO 1 % (0-1); LYMPHOCYTES ABSOLUTE AUTO 2.73 K/mm3 (0.84-5.20); LYMPHOCYTES PERCENT AUTO 29 % (21-46); MONOCYTES ABSOLUTE AUTO 0.91 K/mm3 (0.16-1.47); MONOCYTES PERCENT AUTO 10 % (4-13); Mean Corpuscular HGB 34.5 pg (26.0-34.0); Mean Corpuscular HGB Conc 32.3 g/dL (31.5-36.5); Mean Corpuscular Volume 107 fL (80-100); NEUTROPHILS ABSOLUTE AUTO 5.38 K/mm3 (1.96-9.15); NEUTROPHILS PERCENT AUTO 57 % (41-73); NRBC ABSOLUTE 0.04 K/mm3 (0.00-0.02); NRBC Auto 0.4 /100 WBC (0.0-0.2); Platelet Count 233 K/mm3 (150-400); RDW Coefficient Variation 23.2 % (11.7-14.2); RDW Standard Deviation 84.4 fL (35.1-46.3); Red Blood Cell Count 2.67 M/mm3 (3.80-5.20); White Blood Cell Count 9.37 K/mm3 (4.00-11.30)
--- NOTE | 2018-10-29 14:58 | NUR ---
Spiritual care visit conducted. Patient is lying in bed and alert. Patient openly shared about her struggles, worries and family unit complications. I listen empathically, provide emotional support, pastoral pre parole counseling aide and prayer. Patient responds well and shows signs of reduced stress.
--- NOTE | 2018-10-29 19:13 | NUR ---
ALERT. ORIENTED. ONE PERSON ASSIST TO BSC. MEDIPORT ASSESSED ON MARKETING PROFESSIONAL AND INFUSING MAINTENANCE FLUIDS. UNLABORED RESPIRATIONS. HAD UPPER SCOPE WITH NO OBVIOUS PROBLEMS UPON RETURN. DIET ADVANCED TO REG. NO ACUTE CHANGES. REPORT TO NIGHT RN
[2018-10-29 21:27] LABS: Adenovirus F 40/41 Not Detected (NOT DETECT); Astrovirus Not Detected (NOT DETECT); Campylobacter Sp Not Detected (NOT DETECT); Cryptosporidium Not Detected (NOT DETECT); Cyclospora Cayetanensis Not Detected (NOT DETECT); E. Coli O157 Not Detected (NOT DETECT); Entamoeba Histolytica Not Detected (NOT DETECT); Enteroaggregative E. coli-EAEC Not Detected (NOT DETECT); Enteropathogenic E. coli-EPEC Not Detected (NOT DETECT); Enterotoxigenic E. coli-ETEC Not Detected (NOT DETECT); Giardia Lamblia Not Detected (NOT DETECT); Norovirus GI/GII Not Detected (NOT DETECT); Plesiomonas Shigelloides Not Detected (NOT DETECT); Rotavirus A Not Detected (NOT DETECT); Salmonella Sp Not Detected (NOT DETECT); Shiga Toxin-prod E. coli-STEC Not Detected (NOT DETECT); Shigella/Enteroin E. coli-EIEC Not Detected (NOT DETECT); Vibrio Cholerae Not Detected (NOT DETECT); Vibrio Sp Not Detected (NOT DETECT); Yersinia Enterocolitica Not Detected (NOT DETECT)
[2018-10-29 21:28] LABS: Sapovirus Not Detected (NOT DETECT)
[2018-10-30 05:57] LABS: BASOPHILS ABSOLUTE AUTO 0.02 K/mm3 (0.00-0.23); BASOPHILS PERCENT AUTO 0 % (0-2); EOSINOPHILS ABSOLUTE AUTO 0.34 K/mm3 (0.00-0.68); EOSINOPHILS PERCENT AUTO 3 % (0-6); Hematocrit 29.7 % (33.0-51.0); Hemoglobin 9.3 g/dL (11.5-16.0); IMMATURE GRAN ABSOLUTE AUTO 0.07 K/mm3 (0.00-0.10); IMMATURE GRAN PERCENT AUTO 1 % (0-1); LYMPHOCYTES ABSOLUTE AUTO 3.21 K/mm3 (0.84-5.20); LYMPHOCYTES PERCENT AUTO 31 % (21-46); MONOCYTES PERCENT AUTO 9 % (4-13); Mean Corpuscular HGB 34.8 pg (26.0-34.0); Mean Corpuscular HGB Conc 31.3 g/dL (31.5-36.5); Mean Platelet Volume 10.9 fL (9.1-12.4); NEUTROPHILS ABSOLUTE AUTO 5.68 K/mm3 (1.96-9.15); NEUTROPHILS PERCENT AUTO 56 % (41-73); NRBC ABSOLUTE 0.04 K/mm3 (0.00-0.02); NRBC Auto 0.4 /100 WBC (0.0-0.2); Platelet Count 232 K/mm3 (150-400); RDW Coefficient Variation 22.9 % (11.7-14.2); RDW Standard Deviation 89.1 fL (35.1-46.3); Red Blood Cell Count 2.67 M/mm3 (3.80-5.20); White Blood Cell Count 10.22 K/mm3 (4.00-11.30)
[2018-10-30 06:08] LABS: Mean Corpuscular Volume 111 fL (80-100)
--- NOTE | 2018-10-30 06:11 | NUR ---
SHIFT SUMMARY PATIENT IS ALERT AND ORIENTED. USES CALL LIGHT APPROPRIATELY. PATIENT SAT IN HER WHEELCHAIR FOR A WHILE AT BEGINING OF THE SHIFT. PT IS A 1 ASSIST. PATIENT DID COMPLAIN OF BEING ITCHY ALL OVER AND SCRATCHED OPEN A LITTLE SORE ON HER BACK, WHICH WAS COVERED WITH A BANDAID. PT STATES SHE NORMALLY TAKES VERONICA FOR ALLERGIES AT HOME, HOWEVER OUR PHARMACY DOES NOT CARRY THAT AND THE PATIENT DOES NOT WISH TO TRY ANYTHING ELSE. PT SLEPT OFF AND ON THROUGHOUT THE NIGHT. USES CALL LIGHT APPROPRIATELY. MEDIPORT ACCESSED, FLUIDS RUNNING TKO. UNABLE TO PULL BLOOD FOR AM LABS. VITALS STABLE. NO NEW CHANGES.
[2018-10-30 06:13] LABS: Albumin, Blood 2.4 g/dL (3.4-5.0); Anion Gap 7 mmol/L (6-16); Blood Urea Nitrogen 48 mg/dL (8-24); Bun/Creatinine Ratio 27.4 (12.0-20.0); CO2, Blood 28 mmol/L (21-32); Calcium, Blood 8.6 mg/dL (8.5-10.1); Chloride, Blood 104 mmol/L (98-108); Creatinine, Blood 1.75 mg/dL (0.40-1.00); Glomerular Filtration Rate 30 (60-); Glucose, Blood 89 mg/dL (70-99); Magnesium, Blood 1.7 mg/dL (1.6-2.4); Phosphorus, Blood 2.3 mg/dL (2.5-4.9); Potassium, Blood 3.8 mmol/L (3.5-5.5); Sodium, Blood 139 mmol/L (136-145)
--- NOTE | 2018-10-30 08:52 | NUR ---
DR RITTER NOTIFIED THAT PT STOOL DID COME BACK CDIFF POSITIVE. PT IN CONTACT [facility]. PER DR RITTER AWAITING TOXICOLOGY BUT WILL START ON ORAL VANCO.
--- NOTE | 2018-10-30 13:24 | NUR ---
CDIFF TOX CAME BACK NEGATIVE, ISTRATE NOTIFIED AND WILL PLACE D/C ORDERS.
[2018-10-30] MEDS ORDERED: Culturelle1 CAP PO (14:58)
--- NOTE | 2018-10-30 14:58 | NUR ---
PT ASKED NOT TO FAX OR CALL IN RX FOR CULTURELLE, REPORTS TAKES A PROBIOTICS ALREADY AT HOME.
--- NOTE | 2018-10-30 15:08 | NUR ---
DISCHARGE INSTRUCTIONS REVIEWED WITH PT. ASIM DEACCESSED INTACT. PT CURRENTLY AWAITING RIDE HOME.
--- NOTE | 2018-10-30 15:43 | NUR ---
PT DISCHARGED HOME AT 1534 WITH FRIEND, ESCORTED OUT VIA W/C.
[2019-02-02] MEDS ORDERED: Norco 10-325 T1 EACH PO (12:20)
[2019-02-02] MEDS ORDERED: CYCL10 PO (12:20)
[2019-02-14] MEDS ORDERED: ALLO100 (13:00)
== END 2018-10-30 15:37 | disposition home or self-care (01) | DRG 386 ==
LOC: ER 15:23 → MEDS 15:24 → ENPENDDIS 10-30 14:13 → MEDS 10-30 15:37
PROVIDERS: Emergency Medicine; Family Medicine; Internal Medicine Gastroenterology; Physician Assistant; ADMIT Internal Medicine
PROC: 0DD58ZX Extraction of Esophagus, Via Natural or Artificial Opening Endoscopic, Diagnostic (ICD-10-PCS; 2018-10-29)
PROC: 30233N1 Transfusion of Nonautologous Red Blood Cells into Peripheral Vein, Percutaneous Approach (ICD-10-PCS; principal; 2018-10-29 13:30)
DX: K50.90 Crohn's disease, unspecified, without complications (principal); N17.9 Acute kidney failure, unspecified; N18.4 Chronic kidney disease, stage 4 (severe); I08.0 Rheumatic disorders of both mitral and aortic valves; Z66 Do not resuscitate; Z89.611 Acquired absence of right leg above knee; Z79.82 Long term (current) use of aspirin; E87.6 Hypokalemia; T50.2X5A Adverse effect of carbonic-anhydrase inhibitors, benzothiadiazides and other diuretics, initial encounter; Y92.9 Unspecified place or not applicable; I25.10 Atherosclerotic heart disease of native coronary artery without angina pectoris; D63.1 Anemia in chronic kidney disease; K29.60 Other gastritis without bleeding; K31.89 Other diseases of stomach and duodenum; E86.9 Volume depletion, unspecified; I12.9 Hypertensive chronic kidney disease with stage 1 through stage 4 chronic kidney disease, or unspecified chronic kidney disease
CPT/HCPCS: 36415; 36430; 71045; 74176; 80048; 80053; 80069; 81001; 82272; 83735; 83993; 85025; 85610; 85730; 86140; 86850; 86900; 86901; 86923; 87086; 87324; 87507; 93005; 93010; 96361; 96374; 96375; 96523; 99285-25; C9113; G0378; J0881; J1642; J2250; J2543; J2704; J3480; J7030; J7050; J7060; J7120; J7500; P9016; Q5103

== ENCOUNTER 2018-11-05 02:06 | Day surgery (SDC) | payer MEDICARE, OTHER ==
[~2018-11-05 02:06] MED LIST changes: +ALLEGRA ALLERG180 MG PO; +Bumetanide2 MG PO; +Culturelle1 CAP PO; +MILK THISTLE175 MG PO; +Zantac150 MG PO
[2019-02-02] MEDS ORDERED: Norco 10-325 T1 EACH PO (12:20)
[2019-02-02] MEDS ORDERED: CYCL10 PO (12:20)
[2019-02-14] MEDS ORDERED: ALLO100 (13:00)
== END 2018-11-05 17:00 | disposition home or self-care (01) ==
LOC: ATC 02:06
DX: K50.012 Crohn's disease of small intestine with intestinal obstruction (principal); N18.3 Chronic kidney disease, stage 3 (moderate); D63.1 Anemia in chronic kidney disease; D50.9 Iron deficiency anemia, unspecified; N25.81 Secondary hyperparathyroidism of renal origin; E55.9 Vitamin D deficiency, unspecified; E78.00 Pure hypercholesterolemia, unspecified; R76.9 Abnormal immunological finding in serum, unspecified; R94.5 Abnormal results of liver function studies; R94.6 Abnormal results of thyroid function studies; E83.52 Hypercalcemia
CPT/HCPCS: 80053; 82248; 82784; 83883; 83970; 84100; 84155; 84165; 85018; 86334; 96366; 96413; 96415; A9270; J1642; J7050; Q0163; Q5103

== ENCOUNTER → 2018-12-15 | Outpatient (CLI) | payer MEDICARE, OTHER ==
[~2018-12-15] MED LIST changes: +ALBU90OI INH; +ALLO100; +ANALGESIC BALM TOP; +Aspirin EC81 MG PO; +METPRE4DP PO; +MULVITB PO; +Norco 10-325 T1 EACH PO; +ONDA4 PO; +POTASSIUM CHLO20 MEQ PO; +SPIR25 PO
[2018-12-15 13:22] LABS: Source, Urine Clean Catch
[2018-12-15 13:47] LABS: Bilirubin, Urine Neg (Neg); Blood, Urine 3+ (Neg); Glucose Qualitative, Urine Neg (Neg); Ketones, Urine Neg (Neg); Leukocyte Esterase, Urine 3+ (Neg); Nitrite, Urine Neg (Neg); Protein, Urine 2+ (Neg); Specific Gravity, Urine 1.015 (1.003-1.022); Urobilinogen, Urine NORM (Normal)
[2018-12-15 14:05] LABS: Appearance, Urine Cloudy (Clear); Color, Urine Yellow (P-Yellow)
[2018-12-15 14:06] LABS: Bacteria Mod /hpf; Squamous Epithelial Cells Not Seen /hpf (Few); White Blood Cells, Urine TNTC /hpf (0-5)
== END | disposition home or self-care (01) ==
LOC: PLD 13:21 → LAB SHORT 13:21
PROVIDERS: Internal Medicine
DX: N39.0 Urinary tract infection, site not specified (principal)
CPT/HCPCS: 81001; 87077; 87086; 87186

== ENCOUNTER 2018-12-17 02:30 | Day surgery (SDC) | payer MEDICARE, OTHER ==
[~2018-12-17 02:30] MED LIST changes: -ALBU90OI INH; -ALLO100; -ANALGESIC BALM TOP; -Aspirin EC81 MG PO; -METPRE4DP PO; -MULVITB PO; -Norco 10-325 T1 EACH PO; -ONDA4 PO; -POTASSIUM CHLO20 MEQ PO; -SPIR25 PO
[2018-12-17 15:34] LABS: Hematocrit 32.7 % (33.0-51.0); Hemoglobin 10.4 g/dL (11.5-16.0)
[2018-12-17 16:00] LABS: Albumin, Blood 3.3 g/dL (3.4-5.0); Anion Gap 9 mmol/L (6-16); Blood Urea Nitrogen 94 mg/dL (8-24); Bun/Creatinine Ratio 46.1 (12.0-20.0); CO2, Blood 32 mmol/L (21-32); Calcium, Blood 10.1 mg/dL (8.5-10.1); Chloride, Blood 94 mmol/L (98-108); Creatinine, Blood 2.04 mg/dL (0.40-1.00); Glomerular Filtration Rate 25 (60-); Glucose, Blood 89 mg/dL (70-99); Phosphorus, Blood 5.5 mg/dL (2.5-4.9); Sodium, Blood 135 mmol/L (136-145)
[2019-02-02] MEDS ORDERED: CYCL10 PO (12:20)
[2019-02-02] MEDS ORDERED: Norco 10-325 T1 EACH PO (12:20)
[2019-02-14] MEDS ORDERED: ALLO100 (13:00)
== END 2018-12-17 14:39 | disposition home or self-care (01) ==
LOC: ATC 02:30
PROVIDERS: Internal Medicine
DX: N18.3 Chronic kidney disease, stage 3 (moderate) (principal); D63.1 Anemia in chronic kidney disease; D50.9 Iron deficiency anemia, unspecified; N39.0 Urinary tract infection, site not specified
CPT/HCPCS: 36591; 80069; 85014; 85018; J1642

== ENCOUNTER 2018-12-24 02:06 | Day surgery (SDC) | payer MEDICARE, OTHER ==
[2019-02-02] MEDS ORDERED: Norco 10-325 T1 EACH PO (12:20)
[2019-02-02] MEDS ORDERED: CYCL10 PO (12:20)
[2019-02-14] MEDS ORDERED: ALLO100 (13:00)
== END 2018-12-24 14:40 | disposition home or self-care (01) ==
LOC: ATC 02:06
DX: E87.6 Hypokalemia (principal)
CPT/HCPCS: 36591; 84132; J1642

== ENCOUNTER 2018-12-27 13:19 | Day surgery (SDC) | payer MEDICARE, OTHER ==
[2019-02-02] MEDS ORDERED: CYCL10 PO (12:20)
[2019-02-02] MEDS ORDERED: Norco 10-325 T1 EACH PO (12:20)
[2019-02-14] MEDS ORDERED: ALLO100 (13:00)
== END 2018-12-27 13:55 | disposition home or self-care (01) ==
LOC: ATC 13:19
DX: E87.6 Hypokalemia (principal)
CPT/HCPCS: 36591; 84132; J1642

== ENCOUNTER 2018-12-31 00:23 | Day surgery (SDC) | payer MEDICARE, OTHER ==
[2018-12-31] MEDS ORDERED: POTASSIUM CHLO20 MEQ PO (15:00)
[2019-01-01 02:06] LABS: HBSAG SCREEN Negative (Negative); HCV ANTIBODY <0.1 (0.0-0.9); HEP B CORE AB, TOT Negative (Negative)
[2019-01-03 00:05] LABS: QUANTIFERON MITOGEN VALUE >10.00 IU/mL (.); QUANTIFERON NIL VALUE 0.08 IU/mL (.); QUANTIFERON TB1 AG VALUE 0.09 IU/mL (.); QUANTIFERON TB2 AG VALUE 0.08 IU/mL (.); QUANTIFERON-TB GOLD PLUS Negative (Negative)
[2019-02-02] MEDS ORDERED: CYCL10 PO (12:20)
[2019-02-02] MEDS ORDERED: Norco 10-325 T1 EACH PO (12:20)
[2019-02-14] MEDS ORDERED: ALLO100 (13:00)
== END 2018-12-31 17:01 | disposition home or self-care (01) ==
LOC: ATC 00:23
PROVIDERS: Internal Medicine Gastroenterology
DX: K50.012 Crohn's disease of small intestine with intestinal obstruction (principal); Z79.899 Other long term (current) drug therapy; Z79.02 Long term (current) use of antithrombotics/antiplatelets
CPT/HCPCS: 36591; 86317; 86480; 86704; 86803; 87340; 96375; 96413; 96415; A9270; J1642; J1720; Q0163

== ENCOUNTER 2019-01-06 00:24 | Day surgery (SDC) | payer MEDICARE, OTHER ==
[~2019-01-06 00:24] MED LIST changes: +Coreg12.5 MG PO; +POTASSIUM CHLO20 MEQ PO
[2019-02-02] MEDS ORDERED: CYCL10 PO (12:20)
[2019-02-02] MEDS ORDERED: Norco 10-325 T1 EACH PO (12:20)
== END 2019-01-06 12:07 | disposition home or self-care (01) ==
LOC: ATC 00:24
DX: E87.6 Hypokalemia (principal)
CPT/HCPCS: 36591; 84132; J1642

== ENCOUNTER 2019-01-27 00:25 | Day surgery (SDC) | payer MEDICARE, OTHER ==
[2019-01-27 12:12] LABS: BASOPHILS ABSOLUTE AUTO 0.03 K/mm3 (0.00-0.23); BASOPHILS PERCENT AUTO 0 % (0-2); EOSINOPHILS ABSOLUTE AUTO 0.22 K/mm3 (0.00-0.68); EOSINOPHILS PERCENT AUTO 2 % (0-6); Hemoglobin 6.5 g/dL (11.5-16.0); IMMATURE GRAN ABSOLUTE AUTO 0.09 K/mm3 (0.00-0.10); IMMATURE GRAN PERCENT AUTO 1 % (0-1); LYMPHOCYTES PERCENT AUTO 27 % (21-46); MONOCYTES PERCENT AUTO 8 % (4-13); Mean Corpuscular HGB 33.2 pg (26.0-34.0); Mean Corpuscular HGB Conc 29.5 g/dL (31.5-36.5); Mean Corpuscular Volume 112 fL (80-100); NEUTROPHILS PERCENT AUTO 63 % (41-73); NRBC ABSOLUTE 0.18 K/mm3 (0.00-0.02); NRBC Auto 1.5 /100 WBC (0.0-0.2); Platelet Count 258 K/mm3 (150-400); RDW Coefficient Variation 18.9 % (11.7-14.2); RDW Standard Deviation 77.3 fL (35.1-46.3); Red Blood Cell Count 1.96 M/mm3 (3.80-5.20); White Blood Cell Count 12.04 K/mm3 (4.00-11.30)
[2019-01-27 12:36] LABS: Albumin, Blood 2.6 g/dL (3.4-5.0); Albumin/Globulin Ratio 0.6 (0.8-1.8); Bilirubin, Total 0.2 mg/dL (0.1-1.0); Bun/Creatinine Ratio 32.2 (12.0-20.0); Calcium, Blood 8.8 mg/dL (8.5-10.1); Creatinine, Blood 1.8 mg/dL (0.40-1.00); Globulin, Blood 4.4 g/dL (2.2-4.0); Potassium, Blood 3.3 mmol/L (3.5-5.5)
[2019-02-02] MEDS ORDERED: Norco 10-325 T1 EACH PO (12:20)
[2019-02-02] MEDS ORDERED: CYCL10 PO (12:20)
== END 2019-01-27 12:07 | disposition home or self-care (01) ==
LOC: ATC 00:25
PROVIDERS: Internal Medicine Nephrology
DX: E87.6 Hypokalemia (principal); I95.9 Hypotension, unspecified; R53.83 Other fatigue; D64.9 Anemia, unspecified; I10 Essential (primary) hypertension; R00.2 Palpitations; K50.90 Crohn's disease, unspecified, without complications; Z87.891 Personal history of nicotine dependence; Z79.899 Other long term (current) drug therapy; Z79.02 Long term (current) use of antithrombotics/antiplatelets; Z79.82 Long term (current) use of aspirin
CPT/HCPCS: 36430; 36591; 80053; 85025; 86850; 86900; 86901; 86923; 99284-25; J1642; J7030; P9016

== ENCOUNTER 2019-01-28 15:07 | Emergency (ER) | payer MEDICARE, OTHER ==
[~2019-01-28] VITALS: Ht 154.9 cm; Wt 50.8 kg
[2019-01-28 20:22] LABS: BASOPHILS ABSOLUTE AUTO 0.04 K/mm3 (0.00-0.23); BASOPHILS PERCENT AUTO 0 % (0-2); EOSINOPHILS ABSOLUTE AUTO 0.01 K/mm3 (0.00-0.68); EOSINOPHILS PERCENT AUTO 0 % (0-6); Hematocrit 26.6 % (33.0-51.0); Hemoglobin 8.4 g/dL (11.5-16.0); IMMATURE GRAN ABSOLUTE AUTO 0.13 K/mm3 (0.00-0.10); IMMATURE GRAN PERCENT AUTO 1 % (0-1); LYMPHOCYTES ABSOLUTE AUTO 1.83 K/mm3 (0.84-5.20); LYMPHOCYTES PERCENT AUTO 14 % (21-46); MONOCYTES ABSOLUTE AUTO 0.25 K/mm3 (0.16-1.47); MONOCYTES PERCENT AUTO 2 % (4-13); Mean Corpuscular HGB 32.7 pg (26.0-34.0); Mean Corpuscular HGB Conc 31.6 g/dL (31.5-36.5); Mean Platelet Volume 10.9 fL (9.1-12.4); NEUTROPHILS ABSOLUTE AUTO 11.17 K/mm3 (1.96-9.15); NEUTROPHILS PERCENT AUTO 83 % (41-73); NRBC ABSOLUTE 0.14 K/mm3 (0.00-0.02); Platelet Count 249 K/mm3 (150-400); RDW Coefficient Variation 20.9 % (11.7-14.2); RDW Standard Deviation 78.1 fL (35.1-46.3); Red Blood Cell Count 2.57 M/mm3 (3.80-5.20); White Blood Cell Count 13.43 K/mm3 (4.00-11.30)
[2019-01-28 20:23] LABS: Mean Corpuscular Volume 104 fL (80-100)
[2019-01-28 20:35] LABS: Albumin, Blood 2.8 g/dL (3.4-5.0); Albumin/Globulin Ratio 0.5 (0.8-1.8); Bilirubin, Total 0.2 mg/dL (0.1-1.0); Calcium, Blood 8.7 mg/dL (8.5-10.1); Creatinine, Blood 1.61 mg/dL (0.40-1.00); Globulin, Blood 5.1 g/dL (2.2-4.0); Total Protein, Blood 7.9 g/dL (6.4-8.2)
[2019-02-02] MEDS ORDERED: CYCL10 PO (12:20)
[2019-02-02] MEDS ORDERED: Norco 10-325 T1 EACH PO (12:20)
== END 2019-01-28 21:40 | disposition home or self-care (01) ==
LOC: ER 15:07
PROVIDERS: Physician Assistant
DX: K92.2 Gastrointestinal hemorrhage, unspecified (principal); D64.9 Anemia, unspecified; E87.6 Hypokalemia; I10 Essential (primary) hypertension; Z79.899 Other long term (current) drug therapy
CPT/HCPCS: 80053; 82272; 85025; 99283; A9270; A9270-GY

== ENCOUNTER 2019-02-03 10:50 | Inpatient (IN) | payer MEDICARE, OTHER ==
[~2019-02-03] VITALS: Ht 154.9 cm; Wt 53.8 kg
[~2019-02-03 10:50] MED LIST changes: +Norco 10-325 T1 EACH PO
[2019-02-03 11:45] LABS: BASOPHILS ABSOLUTE AUTO 0.03 K/mm3 (0.00-0.23); BASOPHILS PERCENT AUTO 0 % (0-2); EOSINOPHILS ABSOLUTE AUTO 0.07 K/mm3 (0.00-0.68); EOSINOPHILS PERCENT AUTO 1 % (0-6); Hematocrit 22.8 % (33.0-51.0); Hemoglobin 6.8 g/dL (11.5-16.0); IMMATURE GRAN ABSOLUTE AUTO 0.13 K/mm3 (0.00-0.10); IMMATURE GRAN PERCENT AUTO 1 % (0-1); LYMPHOCYTES ABSOLUTE AUTO 3.63 K/mm3 (0.84-5.20); LYMPHOCYTES PERCENT AUTO 28 % (21-46); MONOCYTES ABSOLUTE AUTO 1.38 K/mm3 (0.16-1.47); MONOCYTES PERCENT AUTO 11 % (4-13); Mean Corpuscular HGB 32.5 pg (26.0-34.0); Mean Corpuscular HGB Conc 29.8 g/dL (31.5-36.5); Mean Platelet Volume 11.5 fL (9.1-12.4); NEUTROPHILS PERCENT AUTO 60 % (41-73); NRBC ABSOLUTE 0.34 K/mm3 (0.00-0.02); NRBC Auto 2.6 /100 WBC (0.0-0.2); Platelet Count 241 K/mm3 (150-400); RDW Coefficient Variation 18.6 % (11.7-14.2); RDW Standard Deviation 71.9 fL (35.1-46.3); Red Blood Cell Count 2.09 M/mm3 (3.80-5.20); White Blood Cell Count 13.04 K/mm3 (4.00-11.30)
[2019-02-03 11:48] LABS: Mean Corpuscular Volume 109 fL (80-100)
[2019-02-03 12:04] LABS: Albumin, Blood 2.3 g/dL (3.4-5.0); Albumin/Globulin Ratio 0.5 (0.8-1.8); Bilirubin, Total 0.3 mg/dL (0.1-1.0); Bun/Creatinine Ratio 30.9 (12.0-20.0); Calcium, Blood 7.3 mg/dL (8.5-10.1); Creatinine, Blood 1.94 mg/dL (0.40-1.00); Globulin, Blood 4.4 g/dL (2.2-4.0); Potassium, Blood 2.6 mmol/L (3.5-5.5); Total Protein, Blood 6.7 g/dL (6.4-8.2)
[2019-02-03] MEDS ORDERED: Zantac150 MG PO (13:00)
[2019-02-03] MEDS ORDERED: MULVITB PO (13:01)
[2019-02-03] MEDS ORDERED: NITR.4SL SL (13:01)
[2019-02-03] MEDS ORDERED: SUCR1 PO (13:01)
[2019-02-03] MEDS ORDERED: ONDA4 PO (13:01)
[2019-02-03] MEDS ORDERED: AZAT50 PO (13:02)
[2019-02-03] MEDS ORDERED: METO2.5 PO (13:02)
[2019-02-03] MEDS ORDERED: Aspirin EC81 MG PO (13:05)
[2019-02-03 15:04] LABS: Percent Saturation 3.7 % (15.0-50.0)
--- NOTE | 2019-02-03 17:45 | NUR ---
ASSUMED CARE: PT NEW ADMISSION FROM ED. VSS HYPOTENSIVE BUT STABLE. BACK SPASMS WITH ANY KIND OF MOVEMENT. NSR AT THIS TIME. 3L O2 IN PLACE. AWAKE, ALERT AND ORIENTED. ASKING FOR WATER
--- NOTE | 2019-02-03 18:20 | NUR ---
CALL TO DR MATOS FOR ORDERS FOR PT DUE TO EXTREME PAIN AND SPASMS IN BACK. SEE EMAR. DISCUSSED BLOOD TRANSFUSION ORDERS. SEE NURSE NOTIFY.
[2019-02-03 19:26] LABS: BASOPHILS ABSOLUTE AUTO 0.04 K/mm3 (0.00-0.23); BASOPHILS PERCENT AUTO 0 % (0-2); EOSINOPHILS ABSOLUTE AUTO 0.12 K/mm3 (0.00-0.68); EOSINOPHILS PERCENT AUTO 1 % (0-6); Hematocrit 30.6 % (33.0-51.0); Hemoglobin 9.2 g/dL (11.5-16.0); IMMATURE GRAN ABSOLUTE AUTO 0.15 K/mm3 (0.00-0.10); IMMATURE GRAN PERCENT AUTO 1 % (0-1); LYMPHOCYTES ABSOLUTE AUTO 3.04 K/mm3 (0.84-5.20); LYMPHOCYTES PERCENT AUTO 21 % (21-46); MONOCYTES ABSOLUTE AUTO 1.66 K/mm3 (0.16-1.47); MONOCYTES PERCENT AUTO 11 % (4-13); Mean Corpuscular HGB 30.6 pg (26.0-34.0); Mean Corpuscular HGB Conc 30.1 g/dL (31.5-36.5); Mean Platelet Volume 11.1 fL (9.1-12.4); NEUTROPHILS ABSOLUTE AUTO 9.84 K/mm3 (1.96-9.15); NEUTROPHILS PERCENT AUTO 66 % (41-73); NRBC ABSOLUTE 0.43 K/mm3 (0.00-0.02); NRBC Auto 2.9 /100 WBC (0.0-0.2); Platelet Count 233 K/mm3 (150-400); RDW Coefficient Variation 21.5 % (11.7-14.2); RDW Standard Deviation 79.5 fL (35.1-46.3); Red Blood Cell Count 3.01 M/mm3 (3.80-5.20); White Blood Cell Count 14.85 K/mm3 (4.00-11.30)
[2019-02-03 19:27] LABS: Mean Corpuscular Volume 102 fL (80-100)
--- NOTE | 2019-02-03 19:38 | NUR ---
SHIFT SUMMARY: LAB COMPLETED BLOOD DRAW GIVING REPORT TO NIGHT RN. NIGHT RN AWARE OF NURSE NOTIFY REGARDING BLOOD TRANSFUSION AND POTASSIUM. ALSO AWARE THAT PT RECIEVED DOSE OF VALIUM FOR BACK SPASMS AND THAT DR MATOS STATES TO BE CAUTIOUS WITH PAIN MEDICATIONS DUE TO HOW PT PRESENTED IN ED. PT RESTING AT THIS TIME. NO FURTHER NEEDS OR CONCERNS AT THIS TIME.
--- NOTE | 2019-02-03 21:00 | NUR ---
UPDATE H&H IMPROVING, SEE LAB RESULTS. PER MD SPECIFICATIONS, SECOND UNIT OF BLOOD NOT GIVEN AT THIS TIME. POTASSIUM RECHECKED AND ALSO IMPROVED.
--- NOTE | 2019-02-03 22:05 | NUR ---
CARE ASSUMED REPORT RECEIVED, CARE ASSUMED AT 1900 FROM MADAN GROSS. PT CONTINUES TO HAVE INTERMITTENT SPASMS. DURING SPASMS, PT GASPS AND TENSES UP, SPASM VISIBLE ON ENTIRE RIGHT SIDE OF BACK AND HIP. PT RESTING QUIETLY IN BETWEEN. BLOOD PRESSURE BORDERLINE, SEE FLOWSHEET. 02 INCREASED TO 6 LPM NASAL CANNULA TO MAINTAIN SATURATIONS IN LOW 90'S DUE TO DESATURATIONS WHEN ASLEEP. SEE SHIFT ASSESSMENT. MULTIPLE PHONE CALLS FROM FAMILY TRANSFERRED INTO PATIENT ROOM THIS EVENING. PT EXPRESSING NEEDS ON NURSE ROUNDING.
--- NOTE | 2019-02-03 23:00 | NUR ---
UPDATE DUE TO PERSISTENT HYPOTENSION, XIOMARA GRIFFIN UPDATED. NEW ORDER FOR BOLUS, REPEAT LABS AND XRAY.
[2019-02-03 23:31] LABS: Hematocrit 24.1 % (33.0-51.0); Hemoglobin 7.5 g/dL (11.5-16.0)
--- NOTE | 2019-02-04 01:49 | NUR ---
UPDATE SINCE PREVIOUS NOTE, H&H RETURNED AND LOW. UPDATED CARLOS. NEW ORDER TO INFUSE ONE UNIT PRBC AND TO CONSULT DR. TSAI IN MORNING THIS PT IS A CHRONIC DR. TSAI PATIENT. PT CONTINUES TO BE DROWSY, BUT AROUSES WITH VERBAL STIMULI. BLOOD TRANSFUSION INITIATED. BP IMPROVED SINCE NORMAL SALINE BOLUS.
--- NOTE | 2019-02-04 02:27 | NUR ---
RESPIRATORY CHANGES ON REASSESSMENT PT HAS CRACKLES TO BASES. REPORTS SLIGHT SOB. 02 REQUIREMENTS UNCHANGED. BLOOD TRANSFUSION DECREASED FROM 100 ML/HR TO 50 ML/HR AND CALL OUT TO DR. GONZALEZ. AWAITING RETURN PHONE CALL.
--- NOTE | 2019-02-04 02:36 | NUR ---
UPDATE SPOKE WITH CARLOS. ORDER RECEIVED TO GIVE DIURETIC AND CONTINUE BLOOD TRANSFUSION.
--- NOTE | 2019-02-04 03:09 | NUR ---
REPORT TO MADAN KRUSE TO ASSUME CARE
--- NOTE | 2019-02-04 03:30 | NUR ---
ASSUMED CARE OF PT. REPORT RECEIVED FROM MADAN BEACH. PT PRESENTLY SLEEPING. IS IN PROCESS OF RECEIVING TRANSFUSION OF PRBC'S. NO S/S TRANSFUSION REACTIONS. WILL REVIEW CHART AND PLAN OF CARE FOR THIS PT.
[2019-02-04 05:57] LABS: BASOPHILS ABSOLUTE AUTO 0.04 K/mm3 (0.00-0.23); BASOPHILS PERCENT AUTO 0 % (0-2); EOSINOPHILS ABSOLUTE AUTO 0.09 K/mm3 (0.00-0.68); EOSINOPHILS PERCENT AUTO 1 % (0-6); Hematocrit 28.9 % (33.0-51.0); Hemoglobin 9.1 g/dL (11.5-16.0); IMMATURE GRAN ABSOLUTE AUTO 0.16 K/mm3 (0.00-0.10); IMMATURE GRAN PERCENT AUTO 1 % (0-1); LYMPHOCYTES ABSOLUTE AUTO 2.51 K/mm3 (0.84-5.20); LYMPHOCYTES PERCENT AUTO 18 % (21-46); MONOCYTES ABSOLUTE AUTO 1.63 K/mm3 (0.16-1.47); MONOCYTES PERCENT AUTO 12 % (4-13); Mean Corpuscular HGB 30.5 pg (26.0-34.0); Mean Corpuscular HGB Conc 31.5 g/dL (31.5-36.5); Mean Platelet Volume 11.7 fL (9.1-12.4); NEUTROPHILS ABSOLUTE AUTO 9.32 K/mm3 (1.96-9.15); NEUTROPHILS PERCENT AUTO 68 % (41-73); NRBC ABSOLUTE 0.42 K/mm3 (0.00-0.02); NRBC Auto 3.1 /100 WBC (0.0-0.2); Platelet Count 204 K/mm3 (150-400); RDW Standard Deviation 69.2 fL (35.1-46.3); Red Blood Cell Count 2.98 M/mm3 (3.80-5.20); White Blood Cell Count 13.75 K/mm3 (4.00-11.30)
[2019-02-04 05:58] LABS: Mean Corpuscular Volume 97 fL (80-100)
[2019-02-04 06:14] LABS: Bun/Creatinine Ratio 33.7 (12.0-20.0); Calcium, Blood 6.4 mg/dL (8.5-10.1); Creatinine, Blood 1.69 mg/dL (0.40-1.00); Potassium, Blood 2.8 mmol/L (3.5-5.5)
--- NOTE | 2019-02-04 06:45 | NUR ---
DR TSAI COMES IN TO SEE PT THIS AM. ORDERS RECEIVED. BLADDER SCAN DONE POST VOID WHICH REVEALS VALUE REMAINING AT 442 ML. PT STATES SHE DOESN'T FEEL IF SHE STILL NEEDED TO VOID. CALL MADE TO DR TSAI. ORDER TO SCAN NEXT POST VOID AND IF VALUE REMAINS HIGH TO DO NIEVES CATHETER FOR RETENTION. THIS TO BE PASSED ON TO ONCOMING RN. PT MADE AWARE. REPORT TO BE GIVEN TO ONCOMING RN.
--- NOTE | 2019-02-04 08:00 | NUR ---
INITIAL ASSESSMENT PATIENT SLEEPING SOUNDLY UPON ENTERING ROOM. PATIENT WAKES TO VOICE. PATIENT ALERT AND ORIENTED X 4. PATIENT CALM AND COOPERATIVE. PATIENT HAS TEMP OF 99.6 DEGREES FAHRENHEIT THIS AM. PATIENT DENIES PAIN WHEN LYING STILL BUT COMPLAINS OF SHARP LOWER BACK SPASMS WHEN SHE IS TURNED/ REPOSITIONED. PATIENT IS SATTING 90% AND GREATER ON RA. R LUNG LOBES DIMINISHED, CRACKLES NOTED IN BILAT LOWER LUNG LOBES, AND DOMINIC CLEAR TO AUSCULTATION. PATIENT IN SR WITH FIRST DEGREE AV BLOCK. MURMUR NOTED. HR IN THE 80S. SBP 90S TO LOW 100S. SCD TO LEFT LEG. ABDOMEN NONDISTENDED, TENDER TO PALPATION, WITH NORMOACTIVE BS. PATIENT COMPLAINS OF SLIGHT NAUSEA. LAST BM ON THE . NIGHT RN BLADDER SCANNED PATIENT BEFORE LEAVING AND NOTED 445 MLS URINE IN BLADDER AFTER [address] TSAI WAS NOTIFIED AND STATED TO BLADDER SCAN PATIENT AFTER ANOTHER VOID AND TO PLACE NIEVES IF STILL HIGH. SKIN FRAGILE AND DRY. R BKA. TOES MISSING TO LEFT FOOT. MIDDLE FINGER ON R HAND SWOLLEN AND RED; PATIENT REPORTED IT HAS BEEN LIKE THIS FOR ABOUT 1 WEEK. KCL INFUSING. BED LOW, CALL LIGHT IN REACH. WILL CONTINUE TO MONITOR PATIENT FREQUENTLY THROUGHOUT SHIFT.
--- NOTE | 2019-02-04 10:30 | NUR ---
DR. TSAI CONTACTED AND INFORMED OF PATIENT'S LOW BPS THIS AM- SBP 70S TO 80S. INFORMED THAT PATIENT HAS CRACKLES NOTED IN BILAT LOWER LUNG LOBES. ORDERED FOR MIDODRINE TID. INFORMED THAT PATIENT HAD POSTIVE GUIAC IN ER 2 DAYS BEFORE ADMIT. GI CONSULT ORDERED.
[2019-02-04 11:56] LABS: Source, Urine Catheter
[2019-02-04 12:03] LABS: Bilirubin, Urine Neg (Neg); Blood, Urine Neg (Neg); Glucose Qualitative, Urine Neg (Neg); Ketones, Urine Neg (Neg); Leukocyte Esterase, Urine Neg (Neg); Nitrite, Urine Neg (Neg); Protein, Urine 1+ (Neg); Urobilinogen, Urine NORM (Normal)
[2019-02-04 12:12] LABS: Appearance, Urine Clear (Clear); Color, Urine Yellow (P-Yellow)
--- NOTE | 2019-02-04 12:20 | NUR ---
DR. CRAWFORD HERE TO SEE PATIENT. UPDATED ON PATIENT STATUS AND AM CONVERSATIONS WITH DR. TSAI.
--- NOTE | 2019-02-04 12:27 | NUR ---
DR. GARCIA IN ROOM TO SEE PATIENT. DAUGHTER AT BEDSIDE.
--- NOTE | 2019-02-04 12:30 | NUR ---
PATIENT REMAINS ALERT AND ORIENTED. PATIENT AFEBRILE. VITAL SIGNS STABLE. NIEVES PLACED FOR RETENTION. NO OTHER ACUTE CHANGES TO NOTE ON AT THIS TIME. WILL CONTINUE TO MONITOR.
--- NOTE | 2019-02-04 12:55 | NUR ---
Spiritual care visit conducted. I was stopped by patient's daughter, Madeleine, in the hallway and she caught me up on the issues that patient has been experiencing the last week or so and what currently is taking place. I went in and visited with patient and she expressed her frustration about being sent home with a muscle relaxer perscription a day or so ago and now she is readmitted and "they are finally looking at things seriously." I listen empathically and provide emotional support and prayer. I will follow up with patient and Madeleine about their concerns and connect them to the patient advocate if the so choose. I will continue to remain available to patient and family.
--- NOTE | 2019-02-04 14:50 | NUR ---
02/04/19 1450 Madeleine Lee PROCEDURE DONE IN ICU 13.
--- NOTE | 2019-02-04 15:00 | NUR ---
ASSISTED OR STAFF WITH UPPER GI SERIES. NO SOURCE OF BLEEDING FOUND. BIOPSIES TAKEN.
--- NOTE | 2019-02-04 15:15 | NUR ---
PT WITH MULT STOOLS. LINENS CHANGED, PERICARE PROVIDED. PT ABLE TO ROLL BACK AND FORTH WELL. ATTENDS PLACED.
--- NOTE | 2019-02-04 15:25 | NUR ---
CALLED AND INFORMED DR. TSAI THAT PATIENT'S POTASSIUM LEVEL AFTER AM POTASSIUM INFUSION CAME BACK AT 2.6. INFORMED THAT PATIENT USUALLY TAKES 20 MEQ POTASSIUM AT HOME DAILY. INFORMED THAT PATIENT IONIZED CALCIUM LEVEL CAME BACK AT 0.79. ORDERS RECEIVED.
--- NOTE | 2019-02-04 16:30 | NUR ---
PATIENT VITAL SIGNS STABLE. PATIENT SATTING 90% AND GREATER ON 2 TO 4 L NC AFTER EDG. HR 60S TO 70S. SBP IN THE 90S. NO OTHER ACUTE CHANGES TO NOTE ON AT THIS TIME. PATIENT HERE TO VISIT. WILL CONTINUE TO MONITOR.
--- NOTE | 2019-02-04 19:17 | NUR ---
SHIFT SUMMARY PATIENT REMAINED ALERT AND ORIENTED. NAPPED ON AND OFF THROUGHOUT DAY. PATIENT HAD SLIGHT TEMP THIS AM BUT WAS THEN AFEBRILE THE REST OF THE SHIFT. PATIENT COMPLAINED OF LOWER BACK SPASMS WHEN REPOSITIONED, BUT COMFORTABLE AT REST. PATIENT REMAINED WITH CRACKLES IN LOWER LOBES. PATIENT STATES SHE IS COUGHING UP MODERATE AMOUNTS OF THICK, GREEN PHLEGM. PATIENT SATTED WELL ON RA UNTIL EGD AND HAS BEEN ON 2 TO 4 L NC SINCE TO KEEP SATS 90% AND GREATER. PATIENT HAS REMAINED IN SR WITH FIRST DEGREE BLOCK. MURMUR NOTED. HR RANGED FROM 60S TO 80S. PATIENT HYPOTENSIVE THIS AM WITH SBP DOWN TO 70S TO 80S. MIDODRINE STARTED TID. BLOOD PRESSURE IMPROVED BUT THEN BECAME HYPOTENSIVE AGAIN AFTER EGD. BLOOD PRESSURE HAS SLOWLY BEEN COMING BACK UP. PATIENT CHANGED FROM CLEAR LIQUID DIET TO RENAL DIET. PATIENT HAD POOR APPETITE DURING THE DAY. 1 LARGE, SOFT, BROWN BM THIS SHIFT. NIEVES PLACED FOR RETENTION; REMAINS DRAINING ADEQUATE AMOUNTS OF BRIGHT YELLOW URINE. NO CHANGE TO SKIN. NS INFUSING AT 100 MLS/ HOUR. PATIENT HAS RECEIVED 70 MEQ KCL AND 2 G CALCIUM GLUCONATE THIS SHIFT FOR LOW LEVELS. US RENAL WITH BLADDER PERFORMED. PATIENT DAUGHTER HERE TO VISIT DURING DAY. PATIENT HAS NO COMPLAINTS AT THIS TIME. BED LOW, CALL LIGHT IN REACH. REPORT HAS BEEN GIVEN TO ASSUMING [place] ATTORNEY NURSE.
--- NOTE | 2019-02-04 19:45 | NUR ---
ASSUMED CARE REPORT RECIEVED. PT IS LAYING IN BED RESTING QUIETLY. PT AWAKENS EASILY TO VERBAL STIMULI. PT IS ALERT AND ORIENTED. PT WITH SEVERE SPASMS TO BACK AND RIGHT LEG. SPASMS RESOLVE QUICKLY. PT COMPLAINS OF BACK PAIN AT THIS TIME. PT WITH RIGHT BKA. PT ON 2L O2 NC. VITAL SIGNS STABLE. MEDIPORT TO RIGHT CHEST ACCESSED AND NS INFUSING AT 100 ML/HR WITH KCL IVPB. NIEVES IN PLACE WITH BRIGHT YELLOW URINE OUTPUT NOTED. NO FAMILY AT BEDSIDE. WILL CONTINUE TO MONITOR.
[2019-02-05 03:38] LABS: BASOPHILS ABSOLUTE AUTO 0.02 K/mm3 (0.00-0.23); BASOPHILS PERCENT AUTO 0 % (0-2); EOSINOPHILS ABSOLUTE AUTO 0.07 K/mm3 (0.00-0.68); EOSINOPHILS PERCENT AUTO 1 % (0-6); Hematocrit 26.9 % (33.0-51.0); Hemoglobin 8.5 g/dL (11.5-16.0); IMMATURE GRAN ABSOLUTE AUTO 0.15 K/mm3 (0.00-0.10); IMMATURE GRAN PERCENT AUTO 1 % (0-1); LYMPHOCYTES ABSOLUTE AUTO 2.36 K/mm3 (0.84-5.20); LYMPHOCYTES PERCENT AUTO 18 % (21-46); MONOCYTES PERCENT AUTO 11 % (4-13); Mean Corpuscular HGB 31.3 pg (26.0-34.0); Mean Corpuscular HGB Conc 31.6 g/dL (31.5-36.5); Mean Corpuscular Volume 99 fL (80-100); Mean Platelet Volume 11.4 fL (9.1-12.4); NEUTROPHILS ABSOLUTE AUTO 9.22 K/mm3 (1.96-9.15); NEUTROPHILS PERCENT AUTO 70 % (41-73); NRBC ABSOLUTE 0.38 K/mm3 (0.00-0.02); NRBC Auto 2.9 /100 WBC (0.0-0.2); Platelet Count 190 K/mm3 (150-400); RDW Coefficient Variation 19.5 % (11.7-14.2); RDW Standard Deviation 70.3 fL (35.1-46.3); Red Blood Cell Count 2.72 M/mm3 (3.80-5.20); White Blood Cell Count 13.22 K/mm3 (4.00-11.30)
[2019-02-05 03:59] LABS: Albumin, Blood 1.7 g/dL (3.4-5.0); Anion Gap 10 mmol/L (6-16); Blood Urea Nitrogen 51 mg/dL (8-24); Bun/Creatinine Ratio 31.5 (12.0-20.0); CO2, Blood 24 mmol/L (21-32); Calcium, Blood 6.6 mg/dL (8.5-10.1); Chloride, Blood 106 mmol/L (98-108); Creatinine, Blood 1.62 mg/dL (0.40-1.00); Glomerular Filtration Rate 33 (60-); Glucose, Blood 83 mg/dL (70-99); Phosphorus, Blood 2.3 mg/dL (2.5-4.9); Potassium, Blood 2.9 mmol/L (3.5-5.5); Sodium, Blood 140 mmol/L (136-145); Vancomycin, Random 10.3 ug/mL
--- NOTE | 2019-02-05 06:02 | NUR ---
SHIFT SUMMARY NO ACUTE CHANGES THIS SHIFT. PT HAS RESTED OFF AND ON THROUGHOUT THE SHIFT. WHEN AWAKE PT IS ALERT AND ORIENTED. PT WITH PERIODS OF HYPOTENSION THROUGHOUT THE NIGHT. 02 VIA NC TITRATED UP TO 4L WHILE SLEEPING. MEDIPORT REMAINS IN PLACE WITH NS INFUSING AT 100 ML/HR, KCL IVPB, MAG IVPB, AND VANCO INFUSING AT THIS TIME. PT CONTINUES TO HAVE SPASMS IN BACK AND LEG WITH LESS FREQUENCY THIS AM. NIEVES REMAINS IN PLACE WITH CLEAR YELLOW OUTPUT THIS SHIFT. WILL CONTINUE TO MONITOR AND REPORT OFF TO ONCOMING RN.
--- NOTE | 2019-02-05 08:15 | NUR ---
INITIAL ASSESSMENT PATIENT SLEEPING SOUNDLY UPON ENTERING ROOM. PATIENT WAKES TO VERBAL STIMULI. PATIENT ALERT AND ORIENTED X 4, AFEBRILE. PATIENT GIVEN PRN PAIN MEDICATIONS FOR COMPLAINT OF LOWER BACK SPASM PAIN WITH MOVEMENT. PATIENT SATTING 90% AND GREATER ON 4 L NC. PATIENT USUALLY RA AT HOME. LUNGS DIMINISHED T/O. PATIENT COUGHING UP MODERATE AMOUNT OF THICK, YELLOW SPUTUM. PATIENT IN SR WITH FIRST DEGREE AV BLOCK. MURMUR NOTED. HR IN THE 80S. SBP IN THE 120S. SCD TO LEFT LEG. GI WNL EXCEPT THAT PATIENT HAS HAD POOR APPETITE. LAST BM YESTERDAY. NIEVES DRAINING ADEQUATE AMOUNT OF BRIGHT COLORED URINE WITH SEDIMENT NOTED. SKIN FRAGILE AND DRY. R BKA. L FOOT GREAT TOE MISSING. COCCYX AND SACRUM REDDENED- MEPILEX APPLIED. R MIDDLE FINGER SWOLLEN AND RED. NS INFUSING AT 75 MLS/ HOUR. PATIENT HAS RECEIVED MAD THIS AM AND IS CURRENTLY RECEIVING KCL AND KPHOS TO REPLETE LOW AM LEVELS. BED LOW, CALL LIGHT IN REACH. WILL CONTINUE TO MONITOR PATIENT FREQUENTLY THROUGHOUT SHIFT.
--- NOTE | 2019-02-05 08:21 | NUR ---
DR. TSAI IN TO SEE PATIENT THIS AM. UPDATED ON STATUS. ORDERS RECIEVED. DR. TSAI STATED IT IS OKAY TO RUN KCL AND K PHOS TOGETHER AT SAME TIME LONG K PHOS RAN OVER 3 HOURS. WILL CONTINUE TO MONITOR.
--- NOTE | 2019-02-05 10:59 | NUR ---
DR. CRAWFORD IN TO SEE PATIENT. UPDATED ON PATIENT STATUS. SBP IN THE 90S. 250 ML NS BOLUS STARTED PER DR. CRAWFORD. INFORMED OF POSITIVE BLOOD CULTURE OF GRAM POSITIVE COCCI IN CLUSTERS. WILL CONTINUE TO MONITOR.
--- NOTE | 2019-02-05 12:35 | NUR ---
PATIENT NAPPING UPON ENTERING ROOM. PATIENT REMAINS ALERT AND ORIENTED. PATIENT HAS TEMP OF 99.1 DEGREES FAHRENHEIT. PATIENT SATTING 90% AND GREATER ON 5 L NC. LUNGS REMAIN DIMINISHED THROUGHOUT. PATIENT REMAINS WITH FIRST DEGREE AV BLOCK. HR 70S TO 80S. SBP IN THE LOW 100S. NO OTHER ACUTE CHANGES TO NOTE ON AT THIS TIME. WILL CONTINUE TO MONITOR.
[2019-02-05 13:12] LABS: Magnesium, Blood 1.6 mg/dL (1.6-2.4); Phosphorus, Blood 3.2 mg/dL (2.5-4.9); Potassium, Blood 3.7 mmol/L (3.5-5.5)
--- NOTE | 2019-02-05 13:20 | NUR ---
DR. TSAI CALLED AND NOTIFIED OF RESULTS OF 1230 MAGNESIUM, PHOSPHORUS, AND POTASSIUM LEVELS. ORDER RECEIVED.
--- NOTE | 2019-02-05 16:00 | NUR ---
PATIENT SLEEPING SOUNDLY UPON ENTERING ROOM. PATIENT AFEBRILE. PATIENT HAS NO COMPLAINTS OF PAIN. PATIENT HAS BEEN MORE LETHARGIC THIS AFTERNOON. PATIENT INCREASED TO 12 L O2 VIA OXYMIZER TO KEEP SATS 90% AND GREATER. LUNGS REMAIN DIMINISHED THROUGHOUT. PATIENT REMAINS WITH FIRST DEGREE AV BLOCK. HR 70S TO 80S. SBP IN THE 80S. NO OTHER ACUTE CHANGES TO NOTE ON AT THIS TIME. WILL CONTINUE TO MONITOR.
--- NOTE | 2019-02-05 17:28 | NUR ---
CALLED DR. CRAWFROD TO INFORM THAT PATIENT HAD TO BE TITRATED UP TO 12 L OXYMIZER TO KEEP SATS 90% AND GREATER. ALSO INFORMED THAT PATIENT HAS BEEN MORE LETHARGIC THIS AFTERNOON. ORDERS RECEIVED. WILL CONTINUE TO MONITOR.
[2019-02-05 17:44] LABS: PCO2 Arterial 36.3 mmHg (35-45); PO2 Arterial 63.2 mmHg (80-100); pH Blood Arterial 7.35 (7.35-7.45)
--- NOTE | 2019-02-05 18:09 | NUR ---
CALLED DR. CRAWFORD AND INFORMED OF ABG RESULTS. INFORMED THAT PATIENT CHANGED FROM 12 L OXYMIZER TO 12 L HIGH FLOW NC. ORDER RECEIVED FOR CHEST XRAY IN AM. NO OTHER ORDERS RECEIVED AT THIS TIME. WILL CONTINUE TO MONITOR.
--- NOTE | 2019-02-05 18:34 | NUR ---
SHIFT SUMMARY PATIENT NAPPED AND ON AND OFF ALL DAY. PATIENT APPEARED MORE LETHARGIC THIS AFTERNOON. PATIENT REMAINED ALERT AND ORIENTED. PATIENT HAD TMAX OF 99.1 DEGREES FAHRENHEIT. PATIENT CONTINUED TO HAVE LOWER BACK SPASMS WITH TURNING AND REPOSITIONING BUT HAS BEEN DECREASING IN FREQUENCY PER PATIENT REPORT. PATIENT GIVEN PRN TRAMADOL OT AND PRN TYLENOL OT. PATIENT STARTED SHIFT ON 4 L O2 AND HAS BEEN INCREASED TO 12 L VIA OXYMIZER BY END OF SHIFT TO KEEP SATS 90% AND GREATER. LUNGS REMAINED DIMINISHED T/O SHIFT. PATIENT CONTINUES COUGHING UP MODERATE AMOUNT OF THICK, YELLOW SPUTUM. PATIENT HAS BEEN UNABLE TO LAND PHLEGM IN CUP FOR SPUTUM COLLECTION THUS FAR. PATIENT HAS REMAINED IN FIRST DEGREE AV BLOCK. HR 70S TO 80S. SBP 80S TO 140S. MIDODRINE INCREASED FROM 5 MG TID TO 7.[address] TSAI THIS AM. PATIENT HAD POOR APPETITE T/O DAY. PATIENT DID BETTER WITH DINNER. PATIENT DID NOT HAVE BM THIS SHIFT. NIEVES REMAINED DRAINING ADEQUATE AMOUNTS OF BRIGHT YELLOW URINE WITH SEDIMENT. MEPILEX APPLIED TO REDDENED SACRUM/ COCCYX. NS INFUSING AT 75 MLS/ HOUR. PATIENT RECEIVED REPLACEMENTS FOR PHOSPHORUS, POTASSIUM AND MAGNESIUM TODAY. PATIENT RECEIVED BED BATH THIS SHIFT. PATIENT HAS NO COMPLAINTS AT THIS TIME. BED LOW, CALL LIGHT IN REACH. WILL BE GIVING REPORT TO ONCOMING TESTING COORDINATOR NURSE SHORTLY.
--- NOTE | 2019-02-05 19:45 | NUR ---
ASSUMED CARE BEDSIDE REPORT RECIEVED. PT IS LAYING IN BED RESTING QUIETLY. PT AWAKENS EASILY TO VERBAL STIMULI, THEN QUICKLY DRIFTS BACK TO SLEEP. PT DROWSEY, BUT IS ALERT AND ORIENTED WHEN AWAKE. PT COMPLAINS OF BACK PAIN AT THIS TIME. PT DOES STATES THAT FREQUENCY OF SPASMS HAS DECREASED THROUGHOUT THE DAY. PT ON 12 O2 VIA HIFLOW NC. SBP STABLE AT THIS TIME. MEDIPORT C/D/I WITH NS INFUSING AT 75 ML/HR. NIEVES IN PLACE WITH CLEAR YELLOW OUTPUT NOTED. RIGHT BKA NOTED. WILL CONTINUE TO MONITOR.
--- NOTE | 2019-02-06 00:18 | NUR ---
AIRVO PT CONTINUED TO DESAT INTO THE LOW 80'S WHILE SLEEPING DUE TO MOUTH BEING OPEN. VENTI MASK UNSUCESSFUL. PT PLACED ON AIRVO AT THIS TIME WITH IMMEDIATE IMPROVEMENT OF SPO2 INTO THE 90'S. WILL CONTINUE TO MONITOR.
[2019-02-06 03:51] LABS: BASOPHILS ABSOLUTE AUTO 0.02 K/mm3 (0.00-0.23); BASOPHILS PERCENT AUTO 0 % (0-2); EOSINOPHILS ABSOLUTE AUTO 0.14 K/mm3 (0.00-0.68); EOSINOPHILS PERCENT AUTO 1 % (0-6); Hematocrit 26.6 % (33.0-51.0); Hemoglobin 8.2 g/dL (11.5-16.0); IMMATURE GRAN ABSOLUTE AUTO 0.16 K/mm3 (0.00-0.10); IMMATURE GRAN PERCENT AUTO 1 % (0-1); LYMPHOCYTES ABSOLUTE AUTO 1.93 K/mm3 (0.84-5.20); LYMPHOCYTES PERCENT AUTO 15 % (21-46); MONOCYTES ABSOLUTE AUTO 1.05 K/mm3 (0.16-1.47); MONOCYTES PERCENT AUTO 8 % (4-13); Mean Corpuscular HGB 31.4 pg (26.0-34.0); Mean Corpuscular HGB Conc 30.8 g/dL (31.5-36.5); Mean Platelet Volume 11.2 fL (9.1-12.4); NEUTROPHILS ABSOLUTE AUTO 10.05 K/mm3 (1.96-9.15); NEUTROPHILS PERCENT AUTO 75 % (41-73); NRBC ABSOLUTE 0.27 K/mm3 (0.00-0.02); Platelet Count 178 K/mm3 (150-400); RDW Coefficient Variation 19.2 % (11.7-14.2); Red Blood Cell Count 2.61 M/mm3 (3.80-5.20); White Blood Cell Count 13.35 K/mm3 (4.00-11.30)
[2019-02-06 03:55] LABS: Mean Corpuscular Volume 102 fL (80-100)
[2019-02-06 04:25] LABS: Albumin, Blood 1.6 g/dL (3.4-5.0); Anion Gap 8 mmol/L (6-16); Blood Urea Nitrogen 42 mg/dL (8-24); Bun/Creatinine Ratio 25.6 (12.0-20.0); CO2, Blood 22 mmol/L (21-32); Calcium, Blood 6.1 mg/dL (8.5-10.1); Chloride, Blood 108 mmol/L (98-108); Creatinine, Blood 1.64 mg/dL (0.40-1.00); Glomerular Filtration Rate 32 (60-); Glucose, Blood 74 mg/dL (70-99); Magnesium, Blood 1.5 mg/dL (1.6-2.4); Phosphorus, Blood 3.4 mg/dL (2.5-4.9); Potassium, Blood 3.3 mmol/L (3.5-5.5); Sodium, Blood 138 mmol/L (136-145); Vancomycin, Random 13.4 ug/mL
--- NOTE | 2019-02-06 06:07 | NUR ---
SHIFT SUMMARY PT DOING WELL WITH AIRVO THROUGHOUT THIS AM. VITAL SIGNS HAVE REMAINED STABLE. PT WITH BLOOD TINGED SPUTUM THIS AM AFTER SUCTION. PT HAS SLEPT THROUGHOUT MOST OF THE NIGHT. PT AROUSES EASILY TO VERBAL STIMULI AND IS ALERT AND ORIENTED WHEN AWAKE. PT CONTINUES TO HAVE PERIODIC BACK SPASMS. NS INFUSING AT 75 ML/HR. NIEVES REMAINS IN PLACE WITH YELLOW OUTPUT NOTED. PT HAS ASSISTED WITH REPOSITIONING WELL. WILL CONTINUE TO MONITOR AND REPORT OFF TO ONCOMING RN.
--- NOTE | 2019-02-06 08:11 | NUR ---
DR. TSAI HERE TO SEE PATIENT THIS AM. ORDERS RECEIVED.
--- NOTE | 2019-02-06 08:20 | NUR ---
INITIAL ASSESSMENT PATIENT SLEEPING SOUNDLY UPON ENTERING ROOM. PATIENT DROWSY BUT EASILY AWAKES TO VERBAL STIMULI. PATIENT GIVEN PRN TYLENOL THIS AM FOR BACK SPASMS. PATIENT REPORTS RELIEF. LOWER BACK SPASMS CONTINUE BUT ARE MUCH IMPROVED SINCE ADMISSION. BACK SPASMS NOT INTENSE AND NOT NEARLY OFTEN WERE BEFORE. GETTING BETTER DAY BY DAY. PATIENT HAS TEMP OF 100.7 DEGREES FAHRENHEIT. PATIENT STATES THAT SHE DOES FEEL HOT. BLANKETS REMOVED, ROOM TEMP TURNED DOWN AND FAN PLACED ON PATIENT. LUNGS CLEAR IN UPPER LOBES, VERY DIMINISHED IN RML AND RLL. CRACKLES NOTED IN LLL. PATIENT ON AIRVO AT 40 L AND AT 95% FIO2. PATIENT CONTINUES TO HAVE MOIST COUGH AND STATES SHE IS COUGHING UP MODERATE AMOUNT OF THICK, YELLOW SPUTUM. CREDIT UNION EXAMINER RN REPORTED THAT PATIENT COUGHED UP LARGE, BLOOD TINGED MUCUS PLUG ON CREDIT UNION EXAMINER. PATIENT IN NSR, HR 80S TO 90S. BP STABLE. MURMUR NOTED. SCDS IN PLACE. GI WNL EXCEPT PATIENT HAS POOR APPETITE. NIEVES DRAINING BRIGHT YELLOW COLORED URINE WITH SEDIMENT NOTED. SKIN FRAGILE AND DRY. COCCYX AND SACRUM REDDENED- MEPILEX IN PLACE. R BKA. L GREAT TOE MISSING. R MIDDLE FINGER SWOLLEN AND RED. NS TKO. BED LOW, CALL LIGHT IN REACH. WILL CONTINUE TO MONITOR PATIENT FREQUENTLY THROUGHOUT SHIFT.
--- NOTE | 2019-02-06 11:12 | NUR ---
DR. CRAWFORD IN TO SEE PATIENT. INFORMED THAT PATIENT INCREASED TO AIRVO LAST NIGHT. INFORMED THAT AIRVO AT 40 L AND 86% FIO2 AT BEGINNING OF SHIFT BUT HAD TO BE INCREASED SHORTLY AFTER TO 95% FIO2 AND THEN INCREASED TO 55 L AND FIO2 DECREASED TO 86% FIO2. INFORMED THAT PROJECT MANAGER SENIOR REPORTED SUCTIONING LARGE BLOOD TINGED PLUG FROM BACK OF PATIENT'S MOUTH. INFORMED THAT PATIENT CONTINUES TO BE DROWSY BUT DOES AWAKEN EASILY TO VERBAL STIMULI. INFORMED THAT PATIENT HAD TEMP OF 100.7 DEGREES FAHRENHEIT, THAT WBCS INCREASING AND H&H DECREASING ON AM LABS. INFORMED THAT AM MAG AND POTASSIUM LOW BUT THAT REPLACEMENTS WERE ALREADY GIVEN DR. TSAI ORDERED EARLIER. INFORMED THAT CALCIUM LOW AT 6.1 AND THAT NO REPLACEMENTS WERE GIVEN. ORDER FOR IONIZED CALCIUM BLOOD LAB RECEIVED. DR. CRAWFORD STATED THAT SHE WAS GOING TO CONSULT PULMONOLOGY FOR THIS PATIENT.
--- NOTE | 2019-02-06 12:00 | NUR ---
PATIENT SLEEPING SOUNDLY UPON ENTERING ROOM. PATIENT REMAINS AROUSING EASILY TO VERBAL STIMULI. PATIENT AFEBRILE. PATIENT HAS NO COMPLAINTS OF PAIN AT THIS TIME. PATIENT NOW ON AIRVO SETTINGS OF 55 L AND 75% FIO2. SPUTUM CULTURE OBTAINED AND SENT TO LAB. SPUTUM THICK, YELLOW/ BLOOD TINGED IN APPEARANCE. HR IN THE 60S. BP STABLE. NO OTHER ACUTE CHANGES TO NOTE ON AT THIS TIME. WILL CONTINUE TO MONITOR.
--- NOTE | 2019-02-06 12:39 | NUR ---
DR. GASTON CRUZ CONSULTED ON PATIENT. UPDATED ON PATIENT STATUS/ CONDITION. ORDERS RECEIVED.
--- NOTE | 2019-02-06 14:56 | NUR ---
DR. GASTON CRUZ IN TO SEE PATIENT.
--- NOTE | 2019-02-06 16:00 | NUR ---
PATIENT REMAINS SLEEPING ON AND OFF. PATIENT AFEBRILE. NO COMPLAINTS OF PAIN. PATIENT ON AIRVO 55 L AND 85% FIO2 AND SATTING 90% AND GREATER. HR IN THE 70S. BP STABLE. APPETITE IS IMPROVING. NO OTHER ACUTE CHANGES TO NOTE ON AT THIS TIME. WILL CONTINUE TO MONITOR.
--- NOTE | 2019-02-06 19:17 | NUR ---
DR. FELDMAN CALLED AND INFORMED OF PATIENT'S INCREASED O2 NEEDS. INFORMED THAT PATIENT IS NOW ON BIPAP /, 85% FIO2 AND IS SATTING 88 TO 92%. INFORMED THAT PATIENT IS COMFORTABLE AND IS NOT SOB, STRUGGLING TO BREATH, AND RR WNL. INFORMED THAT PATIENT HAD URINE OUTPUT OF 1040 MLS THIS SHIFT BUT THAT STILL FLUID POSITIVE ABOUT 300 MLS. INFORMED THAT PATIENT'S BP HAS BEEN STABLE AND LAST SBP WAS 122. ORDERED TO GIVE ANOTHER 40 MG IV LASIX, START SOLUMEDROL, START DUONEB TREATMENTS. INFORMED DR. FELDMAN THAT NURSE HAD ANOTHER CONVERSATION WITH PATIENT ABOUT CODE STATUS AND THAT IF O2 REQUIREMENTS CONTINUED TO INCREASE THAT SHE WOULD BE INTUBATED SHE IS FULL CODE. TALKED ABOUT WHAT FULL CODE ENTAILED AND IF SHE WOULD WANT THIS AND INTUBATION. PATIENT INITIALLY SAID SHE WOULD NOT WANT INTUBATED BUT THEN CHANGED HER MIND AND SAID SHE WOULD LIKE EVERYTHING DONE FOR THE TIME BEING. INFORMED THAT IONIZED CALCIUM WAS 0.85 EARLIER. CALCIUM GLUCONATE PIGGYBACK ORDERED. STATED THAT O2 88% AND ABOVE OKAY LONG PATIENT APPEARS COMFORTABLE. AFTER DISCUSSION WITH DR. FELDMAN, PATIENT'S DAUGHTER CONSTANTINE CALLED. CONSTANTINE DID NOT ANSWER. MESSAGE LEFT INFORMING HER THAT HER MOTHER'S NURSE WOULD LIKE TO SPEAK TO HER ABOUT THE CONDITION OF PATIENT/ UPDATE ON PATIENT STATUS AND TO PLEASE CALL THE ICU BACK. NIPPLE MAKER ASSUMING CARE INFORMED OF ALL OF THE ABOVE.
--- NOTE | 2019-02-06 19:27 | NUR ---
SHIFT SUMMARY PATIENT REMAINED ALERT AND ORIENTED T/O SHIFT. PATIENT REMAINED DROWSY AND SLEPT WHENEVER NURSE WAS NOT IN ROOM. PATIENT REMAINS AWAKENING EASILY TO VERBAL STIMULI. PATIENT HAD TMAX OF 100.7 DEGRESS FAHRENHEIT THIS AM BUT HAS BEEN AFEBRILE SINCE. PATIENT RECEIVED PRN TYLENOL OT THIS SHIFT FOR COMPLAINTS OF BACK SPASMS. PATIENT DID NOT HAVE ANY OTHER COMPLAINTS OF PAIN DURING SHIFT. BACK SPASMS MUCH IMPROVED OVER LAST FEW DAYS. PATIENT'S O2 NEEDS INCREASED THROUGHOUT SHIFT. PATIENT STARTED ON AIRVO AND ENDED ON BIPAP 04/30, 85% FIO2. PATIENT CONTINUES COUGHING UP MODERATE AMOUNT OF THICK, YELLOW/ BLOOD TINGED SPUTUM. SPUTUM CULTURE SENT TODAY. 40 MG IV LASIX GIVEN DURING DAY. PATIENT REMAINED IN SR, HR AND BP STABLE. PATIENT'S APPETITE IMPROVED IN AFTERNOON. NO BM THIS SHIFT. PATIENT HAD ADEQUATE URINE OUTPUT FROM NIEVES OF 1040 MLS. NO CHANGE IN SKIN. PATIENT REPOSITIONED T/O SHIFT. PATIENT REPLENISHED WITH POTASSIUM AND MAG THIS AM AND WILL BE GETTING CALCIUM GLUCONATE. LEVAQUIN DC'D AND ZOSYN STARTED. PATIENT'S DAUGHTER HERE TO VISIT OT TODAY. REPORT HAS BEEN GIVEN TO ASSUMING NEON LIGHT INSTALLER NURSE.
--- NOTE | 2019-02-06 21:30 | NUR ---
ASSUMED CARE BEDSIDE REPORT RECIEVED. PT IS LAYING IN BED RESTING QUIETLY. PT AROUSES TO VERBAL STIMULI EASILY, AND IS ALERT AND ORIENTED WHEN AWAKE. PT IS MILDLY ANXIOUS AND FIDGETY. PT WITH BIPAP ON 04/30, FIO2 85%. SPO2 >88%. VITAL SIGNS STABLE. MEDIPORT TO RIGHT UPPER CHEST IN PLACE WITH NS TKO. POWERGLIDE PLACED TO JABARI. NIEVES IN PLACE WITH CLEAR YELLOW OUTPUT NOTED. LASIX GIVEN PER ORDERS. SPOKE WITH PT DAUGHTER ON PHONE AND UPDATED TO CURRENT PT CONDITION AND POSSIBILITY OF INTUBATION IF RESPIRATORY STATUS CONTINUES TO DECLINE. PT ALSO CONFIRMED THAT SHE IS OK WITH INTUBATION IF NECESSARY. PT TOLERATING BIPAP WELL AT THIS TIME. WILL CONTINUE TO MONITOR.
[2019-02-07 03:43] LABS: BASOPHILS ABSOLUTE AUTO 0.02 K/mm3 (0.00-0.23); BASOPHILS PERCENT AUTO 0 % (0-2); EOSINOPHILS PERCENT AUTO 0 % (0-6); Hematocrit 28.4 % (33.0-51.0); Hemoglobin 8.6 g/dL (11.5-16.0); IMMATURE GRAN ABSOLUTE AUTO 0.12 K/mm3 (0.00-0.10); IMMATURE GRAN PERCENT AUTO 1 % (0-1); LYMPHOCYTES ABSOLUTE AUTO 0.37 K/mm3 (0.84-5.20); LYMPHOCYTES PERCENT AUTO 3 % (21-46); MONOCYTES ABSOLUTE AUTO 0.14 K/mm3 (0.16-1.47); MONOCYTES PERCENT AUTO 1 % (4-13); Mean Corpuscular HGB Conc 30.3 g/dL (31.5-36.5); Mean Platelet Volume 11.1 fL (9.1-12.4); NEUTROPHILS ABSOLUTE AUTO 11.95 K/mm3 (1.96-9.15); NEUTROPHILS PERCENT AUTO 95 % (41-73); NRBC ABSOLUTE 0.23 K/mm3 (0.00-0.02); NRBC Auto 1.8 /100 WBC (0.0-0.2); Platelet Count 196 K/mm3 (150-400); RDW Coefficient Variation 18.5 % (11.7-14.2); RDW Standard Deviation 65.8 fL (35.1-46.3); Red Blood Cell Count 2.87 M/mm3 (3.80-5.20)
[2019-02-07 03:45] LABS: Mean Corpuscular Volume 99 fL (80-100)
[2019-02-07 04:06] LABS: Albumin, Blood 1.6 g/dL (3.4-5.0); Anion Gap 12 mmol/L (6-16); Blood Urea Nitrogen 44 mg/dL (8-24); Bun/Creatinine Ratio 23.2 (12.0-20.0); CO2, Blood 19 mmol/L (21-32); Calcium, Blood 6.8 mg/dL (8.5-10.1); Chloride, Blood 107 mmol/L (98-108); Glomerular Filtration Rate 27 (60-); Glucose, Blood 113 mg/dL (70-99); Magnesium, Blood 1.8 mg/dL (1.6-2.4); Phosphorus, Blood 4.2 mg/dL (2.5-4.9); Potassium, Blood 3.2 mmol/L (3.5-5.5); Sodium, Blood 138 mmol/L (136-145)
--- NOTE | 2019-02-07 06:21 | NUR ---
SHIFT SUMMARY PT DID WELL THIS SHIFT WITH BIPAP. PT STARTED ON PRECEDEX GTT AT 0.2 MCG/KG/MIN DUE TO ANXEITY AND AGITATION WITH BIPAP. AFTER INITIATING PRECEDEX PT TOLERATED BIPAP WELL. BIPAP SETTINGS REMAIN AT 12/7, FIO2 70%. VITAL SIGNS HAVE REMAINED STABLE. PG TO JABARI C/D/I AND MEDIPORT WITH NS INFUSING TKO. NIEVES REMAINS IN PLACE WITH GOOD URINE OUTPUT THIS SHIFT. PT AROUSES EASILY TO VERBAL STIMULI AND IS ALERT AND ORIENTED WHEN AWAKE. PT HAS DENIED PAIN OR DISCOMFORT. WILL CONTINUE TO MONITOR AND REPORT OFF TO ONCOMING RN.
[2019-02-07 09:14] LABS: Vancomycin, Trough 16.9 ug/mL (5.0-10.0)
--- NOTE | 2019-02-07 11:12 | NUR ---
Patient is lying in bed with full breathing mask. Communication is strained but I did hold patient's hand and provided prayer. Patient thanked mefor the visit. I will also follow up with daughter, Madeleine, to see how she is handling her mother's decreased level of health. I will continue to remain available to patient and family.
--- NOTE | 2019-02-07 16:48 | NUR ---
SHIFT SUMMARY: PT HAS BEEN ON BIPAP T/O THE DAY TOLLERATING WELL WITHOUT PRECEDEX. PRECEDEX WAS TURNED OFF THIS MORNING AT APPROX 0830 AFTER BLOOD DRAW. PT HAD A BED BATH AND WAS PLACED ON THE HEATED HIGH FLOW SYSTEM ON 59% FIO2 WITH 60L. PT APPEARS TO BE TOLLERATING WELL SATS >90%. PT IS ABLE TO REPOSSITION HERSELF FROM SIDE TO SIDE ALTHOUGH SHE HAS A AKA ON THE R LEG. WILL CONTINUE TO MONITOR AND REPORT TO ONCOMING RN. CALL LIGHT IN REACH. BED IN LOWEST POSSITION.
[2019-02-07 17:10] LABS: Magnesium, Blood 1.7 mg/dL (1.6-2.4)
--- NOTE | 2019-02-07 23:00 | NUR ---
RECEIVED HAND OFF FROM Pito SANDRA RN USING SBAR. LYING IN SEMI FOWLERS WITH EYES CLSOED. RESPIRATIONS EVEN AND UNLABORED ON BIPAP SET AT 12/7 WITH FIO2 OF 50%. DENIES SOB OR CP AT THIS TIME. LUNG SOUNDS COARSE IN ALL THAO AND CRACKLES NOTED TO LLL. ABDOMEN SOFT AND NONDISTENDED. BOWEL SOUNDS NOTED IN ALL QUADS. NIEVES CATH PLACED DUE TO RETENTION IS DRAINING CLEAR YELLOW URINE TO GRAVITY. RIGHT BKA NOTED, STUMP IN GOOD CONDITION WITHOUT SKIN BREAKDOWN. SCD TO LLE. DENEIS PAIN, DISCOMFORT, OR FURTHER NEEDS AT THIS TIME. SAFETY MEASURES IN PLACE. WILL CONTINUE TO MONITOR.
--- NOTE | 2019-02-07 23:11 | NUR ---
REPORT GIVEN TO ASSUMING NURSE.
[2019-02-08 00:47] LABS: Magnesium, Blood 1.6 mg/dL (1.6-2.4); Potassium, Blood 3.1 mmol/L (3.5-5.5)
[2019-02-08 04:58] LABS: BASOPHILS ABSOLUTE AUTO 0.01 K/mm3 (0.00-0.23); BASOPHILS PERCENT AUTO 0 % (0-2); EOSINOPHILS PERCENT AUTO 0 % (0-6); Hematocrit 24.9 % (33.0-51.0); IMMATURE GRAN ABSOLUTE AUTO 0.14 K/mm3 (0.00-0.10); IMMATURE GRAN PERCENT AUTO 1 % (0-1); LYMPHOCYTES PERCENT AUTO 8 % (21-46); MONOCYTES ABSOLUTE AUTO 0.64 K/mm3 (0.16-1.47); MONOCYTES PERCENT AUTO 6 % (4-13); Mean Corpuscular HGB 30.9 pg (26.0-34.0); Mean Corpuscular HGB Conc 32.1 g/dL (31.5-36.5); Mean Platelet Volume 12.1 fL (9.1-12.4); NEUTROPHILS ABSOLUTE AUTO 9.76 K/mm3 (1.96-9.15); NEUTROPHILS PERCENT AUTO 85 % (41-73); NRBC ABSOLUTE 0.22 K/mm3 (0.00-0.02); NRBC Auto 1.9 /100 WBC (0.0-0.2); Platelet Count 193 K/mm3 (150-400); RDW Coefficient Variation 17.9 % (11.7-14.2); RDW Standard Deviation 62.4 fL (35.1-46.3); Red Blood Cell Count 2.59 M/mm3 (3.80-5.20); White Blood Cell Count 11.45 K/mm3 (4.00-11.30)
[2019-02-08 05:03] LABS: Mean Corpuscular Volume 96 fL (80-100)
[2019-02-08 05:33] LABS: Albumin, Blood 1.6 g/dL (3.4-5.0); Albumin/Globulin Ratio 0.4 (0.8-1.8); Bilirubin, Total 0.3 mg/dL (0.1-1.0); Bun/Creatinine Ratio 26.7 (12.0-20.0); Calcium, Blood 6.2 mg/dL (8.5-10.1); Creatinine, Blood 2.02 mg/dL (0.40-1.00); Globulin, Blood 4.3 g/dL (2.2-4.0); Magnesium, Blood 1.6 mg/dL (1.6-2.4); Phosphorus, Blood 2.7 mg/dL (2.5-4.9); Potassium, Blood 3.5 mmol/L (3.5-5.5); Total Protein, Blood 5.9 g/dL (6.4-8.2)
--- NOTE | 2019-02-08 06:42 | NUR ---
SHIFT SUMMARY LYING IN SEMI FOWLERS WITH EYES CLOSED. HAS MADE A LOT OF URINE, 1500ML CLEAR YELLOW URINE THIS SHIFT VIA NIEVES. KVO X2 WITH K-RIDER TO RIGHT UPPER ARM POWERGLIDE, TOLERATING WELL. REPOSITIONED AFTER HAVING BM AND MEPILEX PLACED TO COCCYX FOR BRUSING AND DISCOMFORT. DENEIS FURTHER NEEDS OR WANTS AT THIS TIME. SAFETY MEASURES IN PLACE. WILL GIVE HAND OFF TO ONCIOMING SHIFT USING SBAR.
--- NOTE | 2019-02-08 08:30 | NUR ---
ASSUMED PT CARE. PT RESTING IN BED. AERVO IN PLACE, 60L/74%. PT A&O 3. ANSWERS QUESTIONS APPROPRIATELY. REPOSITIONED IN BED. REPORTS POOR SLEEP LAST NOC. STATES SHE TYPICALLY TAKES AMBIEN FOR SLEEP. ALSO C/O BACK PAIN. REPOSITIONED FOR COMFORT AND LIDOCAINE PATCH APPLIED. LUNGS COARSE IN LOWER LOBES, CRACKLES LLL. PT P/W/D. VSS. NS TKO THROUGH MEDIPORT AND POWER GLIDE. CALL LIGHT IN REACH. WILL CONTINUE TO MONITOR.
--- NOTE | 2019-02-08 10:32 | NUR ---
PT FINISHED c BREAKFAST. REQUESTING BIPAP BE PLACED. 04/30/50%. CALL LIGHT IN REACH.
--- NOTE | 2019-02-08 11:55 | NUR ---
Spiritual care vsit conducted. Patient welcomes me and asks that I sit a talk with her. I kneel bedside and hold patient's hand. Patient tells me about the peace she has if "things don't go well" and adds that she thinks eventually pneumonia will be what "takes her out." Patient tells me about the family unit complications and tells me stories about her (who 3 yrs ago) and how they stayed together for 57 yrs. Patient laughs and talks enough to cause her O2 stats to drop and her RN has to turn up her Oxygen. I listen to patient, provide a calming presence, reinforce helpful attitudes and practices, and provide companionship and prayer. Patient responds well and shows signs of an elevated mood. Patient voices appreciation for the visit. I will continue to remain available to patient and family.
--- NOTE | 2019-02-08 12:08 | NUR ---
LUNCH TRAY PROVIDED. CHANGED TO AIRVO. PT c INCREASED WORK OF BREATHING. TACHYPNIC. PT REPORTS INCREASES SOB. WILL RETURN TO BIPAP AFTER LUNCH.
--- NOTE | 2019-02-08 12:18 | NUR ---
REPLACED BIPAP. 07/12/49. POSITIONED FOR COMFORT. CALL LIGHT IN REACH.
--- NOTE | 2019-02-08 15:00 | NUR ---
PT RESTING IN BED. AIRVO IN PLACE. PT c IMPROVED WORK OF BREATHING. REPORTS SOB IMPROVED. BREATHING EVEN AND UNLABORED.
--- NOTE | 2019-02-08 15:08 | NUR ---
PT RESTING IN BED. PT REFUSING GABAPENTIN. STATES SHE WOULD LIKE NOC DOSE TO HELP HER SLEEP. AIRVO IN PLACE. PT DENIES OTHER NEEDS.
--- NOTE | 2019-02-08 16:51 | NUR ---
Initial palliative care consult: Katiana is a 78 year old with a history of crohn's disease, PUD, ulcerative colitis, CAD, CKD, R AKA and on immunosuppressents. She currently has a "slow blood leak somewhere" and pneumonia. She is followed as an outpatient by doctors Wm Torres and Logan. She has one daughter, Madeleine, who is involved in her care. Katiana currently is on an airvo. She was on bipap earlier this afternoon, however she states at the time of my visit that she is feeling better and is up for a visit. Katiana is well known to this story writer from previous visits to the outpatient infusion center over a several year period. She denies any pain, N/V and anxiety at this time. She reports her SOB is better. On airvo currently. She has an occasional weak cough which she reports is productive to some blood. She states that the source of her GI blood loss has not been found at this time. She lives alone and has a good friend who checks on her frequently and a caregiver who comes three times a week to assist with transportation needs. She also has a life alert system. She reports that her caregiver isn't a good senior hr business partner, however she states that she really likes the caregiver and she makes it work. Her daughter, Madeleine, is also a good support system for Katiana and she helps out when she is available. Discussed current plan of care. Katiana states her pneumonia is getting better and she is looking forward to going home sometime later this week. Discussed AD and POLST. She states she has both of these forms at home. She confirms that her current code status is full code. She stated that she would choose to be a DNR, however her daugter Madeleine is very against a DNR so she went along with being a full code. Explained to her that it is her choice and that staff want to respect her wishes for code status. Offered to have staff assist with a conversation with Madeleine if needed. Katiana declined. She stated that she has attempted to have the DNR conversation with Madeleine and Madeleine will not allow it. Katiana states she is at peace with remaining a full code. She tells this story writer that "God's in control and if it's my time to go, than it is God's will." Discussed with her not wanting to put her through more pain or suffering with an attempted resusitation. She again said she was at peace with remaining a full code at this time. She was beginning to get fatigued during our conversation. She told stories and reminisced about her life and laughed frequently during our visit. She denied any needs during my visit. Attempted to end the visit several times to allow her to rest. PC will continue to follow up with Katiana re: advanced care planning and code discussions with Katiana and her daughter if Katiana would like us to have that conversation.
--- NOTE | 2019-02-08 17:19 | NUR ---
PT SITTING IN CHAIR AT BEDSIDE EATING DINNER. RESP EVEN AND UNLABORED. LUNGS COARSE IN BASES. PT P/W/D. PT STATES SHE FEELS BETTER SITTING IN CHAIR.
[2019-02-08 17:35] LABS: Magnesium, Blood 1.5 mg/dL (1.6-2.4); Potassium, Blood 3.4 mmol/L (3.5-5.5)
--- NOTE | 2019-02-08 18:08 | NUR ---
PT CONTINUES TO SIT AT BEDSIDE. NO ACUTE DISTRESS NOTED. AIRVO IN PLACE. RT DECREASED O2 TO 50%, NO ACUTE CHANGES IN PT CONDITION c CHANGE. LUNGS COARSE IN BASES. PT DENIES NEEDS. NS TKO THROUGH MEDIPORT. CALL LIGHT IN REACH.
--- NOTE | 2019-02-08 20:00 | NUR ---
ASSUMED CARE NOTE: ASSUMED CARE OF PT AT 1900, RECEIVED REPORT FROM MARGO HAGER. UPON ENTERING ROOM PT WAS SITTING IN CHAIR.PT IS ALERT AND ORIENTED, AND IS CURRENTLY ON THE AIRVO WITH SETTINGS OF 60L/MIN AT 40% FIO2. PT IS COMPLAINING OF SOB, HOWEVER STATES " BUT I CAN CATCH MY BREATH AFTER A FEW MINUTES" PT'S RR ARE 24 BPM WITH SP02 @ 99%. NIEVES IN PLACE AND SECURED, FREE FROM OBSTRUCTION AND DRAINING YELLOW CLEAR URINE. PT IS ALSO COMPLANING OF LEFT SHOULDER PAIN AND STATES THAT IT "ACHES AND IT'S CONSTANT", PT WILL BE MEDICATED PER EMAR. WILL CONTINUE TO MONITOR PT T/O SHIFT.
[2019-02-09 04:24] LABS: BASOPHILS PERCENT AUTO 0 % (0-2); EOSINOPHILS PERCENT AUTO 0 % (0-6); Hematocrit 27.1 % (33.0-51.0); Hemoglobin 8.5 g/dL (11.5-16.0); IMMATURE GRAN ABSOLUTE AUTO 0.16 K/mm3 (0.00-0.10); IMMATURE GRAN PERCENT AUTO 1 % (0-1); LYMPHOCYTES ABSOLUTE AUTO 1.74 K/mm3 (0.84-5.20); LYMPHOCYTES PERCENT AUTO 14 % (21-46); MONOCYTES ABSOLUTE AUTO 0.88 K/mm3 (0.16-1.47); MONOCYTES PERCENT AUTO 7 % (4-13); Mean Corpuscular HGB 30.8 pg (26.0-34.0); Mean Corpuscular HGB Conc 31.4 g/dL (31.5-36.5); Mean Corpuscular Volume 98 fL (80-100); Mean Platelet Volume 11.8 fL (9.1-12.4); NEUTROPHILS ABSOLUTE AUTO 9.75 K/mm3 (1.96-9.15); NEUTROPHILS PERCENT AUTO 78 % (41-73); NRBC ABSOLUTE 0.27 K/mm3 (0.00-0.02); NRBC Auto 2.2 /100 WBC (0.0-0.2); Platelet Count 195 K/mm3 (150-400); RDW Coefficient Variation 17.9 % (11.7-14.2); RDW Standard Deviation 64.4 fL (35.1-46.3); Red Blood Cell Count 2.76 M/mm3 (3.80-5.20); White Blood Cell Count 12.53 K/mm3 (4.00-11.30)
[2019-02-09 04:45] LABS: Albumin, Blood 1.9 g/dL (3.4-5.0); Anion Gap 9 mmol/L (6-16); Blood Urea Nitrogen 60 mg/dL (8-24); Bun/Creatinine Ratio 29.9 (12.0-20.0); CO2, Blood 22 mmol/L (21-32); Chloride, Blood 108 mmol/L (98-108); Creatinine, Blood 2.01 mg/dL (0.40-1.00); Glomerular Filtration Rate 25 (60-); Glucose, Blood 89 mg/dL (70-99); Phosphorus, Blood 2.1 mg/dL (2.5-4.9); Potassium, Blood 3.6 mmol/L (3.5-5.5); Sodium, Blood 139 mmol/L (136-145); Vancomycin, Random 28.6 ug/mL
--- NOTE | 2019-02-09 06:36 | NUR ---
SHIFT SUMMARY: PT CONTINUED TO BE ALERT AND ORIENTED T/O SHIFT. PT TOLERATED AIRVO WELL AND WAS ABLE TO GET REST. SETTINGS OF AIRVO ARE 60L/MIN WITH FIO2 OF 64%. PT DENIES ANY CHEST PAIN, DIZZINESS OR SOB AT THIS TIME. RR RANGING FROM 16-20 BMP. PT IS CURRENTLY IN NORMAL SINUS RYTHYM WITH HR IN THE 70'S. PT HAS BEEN C/O NECK AND BACK PAIN, SHE HAS BEEN MEDICATED PER EMAR. SHE HAS X/RAY SCHEDULED THIS MORNING ORDERED BY PHYSICAN. PT STATES THAT REPOSITIONING HELPS RELIEVE SOME OF THE PAIN. AND WORSENS WHEN SITTING/LAYING IN ONE POSITION FOR LONG PERIODS OF TIME. PT ALSO STATES THAT IT COMES AND GOES AND THAT IT IS CHRONIC. BED AT LOWEST LEVEL, CALL LIGHT WITHIN REACH. WILL CONTINUE TO MONITOR UNTIL REPORT IS GIVEN TO ONCOMING SHIFT.
[2019-02-09 07:34] LABS: Magnesium, Blood 1.9 mg/dL (1.6-2.4)
--- NOTE | 2019-02-09 08:50 | NUR ---
REPORT FROM HANNAH/DEVI RN. PT SITTING UP BED RECLINER EATING BREAKFAST. A&O X4. REPORTS BETTER SLEEP LAST NOC. REPORTS SOB IMPROVED. ONLY C/O PAIN TO BACK AND LEFT SHOULDER. REPORTS MINIMAL RELIEF FROM LIDOCAINE PATCH. REQUESTING FLEXERIL. WILL NOTIFY . PT STATES "I DONT NEED THOSE XRAYS." WILL MONITOR IMPROVEMENT IN PAIN POST FLEXERIL ADMINSTRATION. PT P/W/D. NON LABORED RESP. AIRVO IN PLACE, 60L 58%. PT TOLERATING WELL. STATES SHE DID NOT NEED BIPAP LAST NOC. LUNGS CLEAR IN UPPER LOBES, COARSE LOWER, CRACKLES LLL. NIEVES IN PLACE, PATENT, DRAINING CLEAR YELLOW URINE. MEDIPORT INFUSING NS TKO. POWERGLIDE PATENT. CALL LIGHT IN REACH. WILL CONTINUE TO MONITOR.
--- NOTE | 2019-02-09 11:04 | NUR ---
DR ROSE AT BEDSIDE FOR ASSESSMENT. NO ACUTE CHANGES IN PT CONDITION. REMAINS ON AIRVO, RESP EVEN AND UNLABORED. DECREASED FIO2 TO 50% PER MD. STATUS CHANGE TO PCU.
--- NOTE | 2019-02-09 13:34 | NUR ---
REPORT TO ABDIAS HAGER. PT REMAINS ON AIRVO. NO ACUTE DISTRESS NOTED. PT REPORTS IMPROVEMENT OF BACK PAIN. 10/01.
--- NOTE | 2019-02-09 14:22 | NUR ---
Patient is sitting on a chair and alert. Patient openly shares about her concern for her daughter, Madeleine, because of her constant worry over the patient. Patient also shares that she is not open to going to a rehabilitation facility. Patient tells many stories of how things have since when she was young, about how she works out her [employer] jose cruz in the midst of suffering and pain and about the grief she still carries from the loss of her and son-in-law. I listen empathically and provide companionship, grief support and prayer. Patient responds well and thanks me for spending time with her.
--- NOTE | 2019-02-09 16:30 | NUR ---
ASSUMPTION OF CARE PATIENT ALERT AND ORIENTED X 4, AFEBRILE. PATIENT SATTING 90% AND GREATER ON AIRVO 50 L AND 45-65% FIO2. LUNGS CLEAR IN UPPER LOBES, RLL COARSE, LLL CRACKLES. PATIENT STATES SHE IS COUGHING UP THICK, YELLOW SPUTUM. PATIENT IN NSR, HR IN THE 80S. SBP IN THE 120S. GI WNL. NIEVES DRAINING CLEAR/ YELLOW URINE. SKIN FRAGILE AND DRY. R AKA. L GREAT TOE MISSING. R MIDDLE FINGER SWOLLEN/ REDDENED/ TENDER. NS TKO. BED LOW, CALL LIGHT IN REACH. WILL CONTINUE TO MONITOR FREQUENTLY THROUGHOUT SHIFT.
[2019-02-09 17:18] LABS: Magnesium, Blood 1.6 mg/dL (1.6-2.4); Potassium, Blood 3.5 mmol/L (3.5-5.5)
--- NOTE | 2019-02-09 19:04 | NUR ---
SHIFT SUMMARY PATIENT REMAINED ALERT AND ORIENTED, AFEBRILE. PATIENT HAD COMPLAINT OF PAIN IN R AKA OT AND IN BACK OT. PATIENT REPORTED RELIEF WITH PRESCRIBED PAIN MEDICATION. PATIENT SATTED 90% FIO2 ON AIRVO 50 L AND BETWEEN 35% AND 65% FIO2. PATIENT REMAINED IN SR, HR 70S TO 90S. SBP 120S TO 160S. MURMUR REMAINED. GI WNL. PATIENT EATING WELL. PATIENT HAD BM THIS SHIFT. NIEVES REMAINED DRAINING ADEQUATE AMOUNT OF CLEAR, YELLOW URINE. NO CHANGE TO SKIN. PATIENT UP TO CHAIR TODAY AND IS SHIFTING HIPS. NS TKO. PATIENT HAS NO COMPLAINTS AT THIS TIME. CALL LIGHT IN REACH. REPORT WILL BE GIVEN SOON TO ONCOMING ACADEMIC SUPPORT COORDINATOR NURSE.
[2019-02-10 04:44] LABS: BASOPHILS ABSOLUTE AUTO 0.01 K/mm3 (0.00-0.23); BASOPHILS PERCENT AUTO 0 % (0-2); EOSINOPHILS ABSOLUTE AUTO 0.08 K/mm3 (0.00-0.68); EOSINOPHILS PERCENT AUTO 1 % (0-6); Hematocrit 26.5 % (33.0-51.0); Hemoglobin 8.2 g/dL (11.5-16.0); IMMATURE GRAN ABSOLUTE AUTO 0.12 K/mm3 (0.00-0.10); IMMATURE GRAN PERCENT AUTO 1 % (0-1); LYMPHOCYTES ABSOLUTE AUTO 2.65 K/mm3 (0.84-5.20); LYMPHOCYTES PERCENT AUTO 23 % (21-46); MONOCYTES ABSOLUTE AUTO 0.89 K/mm3 (0.16-1.47); MONOCYTES PERCENT AUTO 8 % (4-13); Mean Corpuscular HGB 30.7 pg (26.0-34.0); Mean Corpuscular HGB Conc 30.9 g/dL (31.5-36.5); Mean Corpuscular Volume 99 fL (80-100); Mean Platelet Volume 11.9 fL (9.1-12.4); NEUTROPHILS ABSOLUTE AUTO 7.67 K/mm3 (1.96-9.15); NEUTROPHILS PERCENT AUTO 67 % (41-73); NRBC ABSOLUTE 0.28 K/mm3 (0.00-0.02); NRBC Auto 2.5 /100 WBC (0.0-0.2); Platelet Count 193 K/mm3 (150-400); RDW Coefficient Variation 17.6 % (11.7-14.2); RDW Standard Deviation 63.4 fL (35.1-46.3); Red Blood Cell Count 2.67 M/mm3 (3.80-5.20); White Blood Cell Count 11.42 K/mm3 (4.00-11.30)
[2019-02-10 05:07] LABS: Albumin, Blood 1.8 g/dL (3.4-5.0); Anion Gap 8 mmol/L (6-16); Blood Urea Nitrogen 47 mg/dL (8-24); Bun/Creatinine Ratio 29.4 (12.0-20.0); CO2, Blood 24 mmol/L (21-32); Calcium, Blood 6.8 mg/dL (8.5-10.1); Chloride, Blood 107 mmol/L (98-108); Glomerular Filtration Rate 33 (60-); Glucose, Blood 91 mg/dL (70-99); Magnesium, Blood 1.5 mg/dL (1.6-2.4); Phosphorus, Blood 1.9 mg/dL (2.5-4.9); Potassium, Blood 3.2 mmol/L (3.5-5.5); Sodium, Blood 139 mmol/L (136-145); Vancomycin, Random 20.8 ug/mL
--- NOTE | 2019-02-10 07:39 | NUR ---
END OF SHIFT SUMMARY PT ALERT AND ORIENTED, RESPONDS APPROPRIATELY WITH STAFF. PT UP IN CHAIR AT BEGINNING OF SHIFT. HAS BEEN IN BED SINCE, PT HAS BEEN ADJUSTING HERSELF IN BED WELL STAFF REPOSITIONING. PT TOLERATING AIRVO, HAS NOT REQUIRED BIPAP USE. AIRVO HAS REMAINED ON 50LPM WITH 45% FIO2 SINCE 2099 WHEN TITRATED FROM 35%. SPO2 REMAINING AT 90 - 92%. NIEVES REMAINS PATENT AND DRAINING. POWERGLIDE/MEDIPORT RECEIVING INFUSIONS. PT HAS HAD HEATING PAD FOR SHOULDER/BACK PAIN WELL MEDS PER EMAR. PT EXPERIENCED INSTANCE OF HTN, MEDICATYED PER EMAR. OTHERWISE, VSS MAINTAINING. USES CAQLL LIGHT APPROPRIATELY. REPORT GIVEN TO ONCOMING RN.
--- NOTE | 2019-02-10 15:27 | NUR ---
Patient is sitting on a chair and alert. Patient talks about her family, her resources at home and her jose cruz. I listen empathically and provide companionship and prayer. I will continue to remain available to patient and family.
--- NOTE | 2019-02-10 17:43 | NUR ---
EVENING NOTE PT UP IN CHAIR AT BEDSIDE. PILLOW UNDER HER BOTTOM D/T HER BUTT BEING SORE. PT C/O OF BACK AND RIB SPASMS. KPAD HELPS SOME. OFFERED TO PLACE AN EGG CRATE ON BED. SHE DECLINED. LUNGS DECREASED T/O. SAT STABLE ON AIRVO. DR CUNNINGHAM ROUNDED EARLIER. SHE WAS ENCOURAGING TO PT. NO OXYGEN WEANING TODAY. NO COUGH. WESURESH PT GOT UP TOT HE COMMODE HER SPO2 WAS 80%. WHEN SHE GOT UP FOR DINNER TO THE CHAIR HER SPO2 WAS 92%. PT HAD ONE BM TODAY AFTER BREAKFAST. PT HAS REFUSED DINNER TONIGHT. SHE IS DRINKING A CUP OF TEA RIGHT NOW. CONTINUE POT.
--- NOTE | 2019-02-10 20:11 | NUR ---
PATIENT COMPLAIN OF SEVERE MUSCLE SPASMS IN LEFT HIP AND FLANK. PATIENT STATES IT IS CONSTANT AND SHARP 01/01. CALLED DR. HARRELL WHO STATED SHE WHOULD REVIEW CHART AND PLACE ORDERS.
[2019-02-11 05:22] LABS: BASOPHILS ABSOLUTE AUTO 0.02 K/mm3 (0.00-0.23); BASOPHILS PERCENT AUTO 0 % (0-2); EOSINOPHILS ABSOLUTE AUTO 0.18 K/mm3 (0.00-0.68); EOSINOPHILS PERCENT AUTO 2 % (0-6); Hematocrit 25.3 % (33.0-51.0); Hemoglobin 7.8 g/dL (11.5-16.0); IMMATURE GRAN ABSOLUTE AUTO 0.16 K/mm3 (0.00-0.10); IMMATURE GRAN PERCENT AUTO 1 % (0-1); LYMPHOCYTES ABSOLUTE AUTO 2.71 K/mm3 (0.84-5.20); LYMPHOCYTES PERCENT AUTO 23 % (21-46); MONOCYTES ABSOLUTE AUTO 0.85 K/mm3 (0.16-1.47); MONOCYTES PERCENT AUTO 7 % (4-13); Mean Corpuscular HGB Conc 30.8 g/dL (31.5-36.5); Mean Corpuscular Volume 97 fL (80-100); Mean Platelet Volume 11.6 fL (9.1-12.4); NEUTROPHILS PERCENT AUTO 67 % (41-73); NRBC ABSOLUTE 0.22 K/mm3 (0.00-0.02); NRBC Auto 1.8 /100 WBC (0.0-0.2); Platelet Count 190 K/mm3 (150-400); RDW Coefficient Variation 17.5 % (11.7-14.2); White Blood Cell Count 12.02 K/mm3 (4.00-11.30)
[2019-02-11 05:41] LABS: Albumin, Blood 1.8 g/dL (3.4-5.0); Albumin/Globulin Ratio 0.4 (0.8-1.8); Bilirubin, Total 0.4 mg/dL (0.1-1.0); Bun/Creatinine Ratio 27.8 (12.0-20.0); Calcium, Blood 6.5 mg/dL (8.5-10.1); Creatinine, Blood 1.33 mg/dL (0.40-1.00); Globulin, Blood 4.4 g/dL (2.2-4.0); Magnesium, Blood 1.6 mg/dL (1.6-2.4); Phosphorus, Blood 2.5 mg/dL (2.5-4.9); Potassium, Blood 3.6 mmol/L (3.5-5.5); Total Protein, Blood 6.2 g/dL (6.4-8.2)
--- NOTE | 2019-02-11 05:42 | NUR ---
PATIENT SLEEPING FREQUENTLY WHEN LOOKING THROUGH DOORWAY. WHEN WOKEN PATIENT STATES SHE CAN'T MOVE DUE TO PAIN. RECIEVING PRNS AND HAS KPAD. PATIENT STATES IT IS IN HER LOW BACK, LEFT FLANK AND HIP. PATIENT DOES MOVES AROUND IN BED BUT REFUSING TO MAKE TURNS DUE TO PAIN.
--- NOTE | 2019-02-11 10:10 | NUR ---
Visited with Katiana this morning. She is sitting up in the chair and states she is feeling pretty well. She is on a NC for her O2 at this time. She is asking about a "gel foot wrap" from [facility] and that she states was ordered by Dr. Cedillo. Spoke with [facility] community care director rn, who states pt transferred from Dr. Cedillo to Dr. Torres as her PCP in [address]. [address] Torres's office to inquire about this foot wrap order which Katiana tells me that the diagnosis code on the order at [facility] needs to be changed. Katiana states her dtr Madeleine is working on getting the gel wrap.
--- NOTE | 2019-02-11 14:28 | NUR ---
Patient mentioned yesterday when I visited her that the days drag on with no variation and so I mentioned that I played guitar. Patient invited me to play this day. I played 5 songs on guitar and played and sang 2 additional songs. Patient said that she thoroughly enjoyed it and that it was a wonderful distraction. I also sat and talked with patient and provided prayer. Patient responded well and showed signs of an elevated mood. I will continue to be available to patient.
--- NOTE | 2019-02-11 17:55 | NUR ---
SHIFT SUMMARY PT ALERT AND ORIENTED. VS STABLE. O2 SATS REMAIN ABOVE 90% ON 5L HIGH FLOW NC. BP STABLE. HR NSR WITH PAC. PT COMPLAINS OF SPASMS IN HER LEFT FLANK WITH EXCESSIVE MOVEMENT. HEATING PAD APPLIED AND MEDICATED NEEDED. PT UP TO CHAIR THIS AFTERNOON WITH PIVOT TRANSFER. PT RECEIVED 1U PRBC THIS SHIFT. WILL CONTINUE TO MONITOR AND REPORT TO ONCOMING RN. CALL LIGHT IN REACH. FAMILY AT BEDSIDE.
--- NOTE | 2019-02-11 20:10 | NUR ---
PATIENT RESTING IN RECLINER CHAIR. DUE TO PAIN THAT SHE HAD YESTERDAY WHILE LAYING IN BED PATIENT WANTS TO STAY IN HER CHAIR AT THIS TIME. DENIES ANY PAIN.
--- NOTE | 2019-02-12 00:29 | NUR ---
PATIENT 1 ASSIST TO THE BED. PATIENT LAYING ON HER SIDE TO GIVE HER BOTTOM A REST. PATIENT DENIES ANY PAIN.
[2019-02-12 05:44] LABS: Hematocrit 31.1 % (33.0-51.0); Hemoglobin 9.7 g/dL (11.5-16.0)
[2019-02-12 06:03] LABS: Albumin, Blood 1.9 g/dL (3.4-5.0); Anion Gap 5 mmol/L (6-16); Blood Urea Nitrogen 34 mg/dL (8-24); Bun/Creatinine Ratio 27.2 (12.0-20.0); CO2, Blood 25 mmol/L (21-32); Chloride, Blood 105 mmol/L (98-108); Creatinine, Blood 1.25 mg/dL (0.40-1.00); Glomerular Filtration Rate 44 (60-); Glucose, Blood 88 mg/dL (70-99); Magnesium, Blood 1.5 mg/dL (1.6-2.4); Phosphorus, Blood 3.1 mg/dL (2.5-4.9); Sodium, Blood 135 mmol/L (136-145); Vancomycin, Random 15.5 ug/mL
--- NOTE | 2019-02-12 06:03 | NUR ---
PATIENT COMPLAINING OF BACK PAIN THIS AM AFTER SLEEPING IN BED. PATIENT GIVEN PRN FOR PAIN. PATIENT STATING SHE HAS SLEPT WELL THROUGH THE NIGHT. DENIES ANY NEEDS. CALL LIGHT HAS REMAINED WITHIN REACH. PATIENT REPOSITIONING SELF.
--- NOTE | 2019-02-12 18:43 | NUR ---
SHIFT SUMMARY Pt alert and oriented. Calm and coopertive with care. Pt up in recliner for majority of shift, pivot transfer to bed or bsc. Pt reports pain in neck/back and hip, medicated X1 with tylenol with positive results, pt using heating pad with positive results. Pt denies sob at all times, pt on 3l 02 via hf nc at rest, titrated to 4l o2 via nc for activity and recovery. pt denies nausea. castelan in place and draining. tele SR with PAC's. vss. no other acute changes noted during shift. New orders from Dr Burr for med status, no tele. report given to oncoming rn.
[2019-02-13 05:39] LABS: Hematocrit 30.3 % (33.0-51.0); Hemoglobin 9.4 g/dL (11.5-16.0)
--- NOTE | 2019-02-13 05:41 | NUR ---
PATIENT SLEEPING IN CHAIR TONIGHT DUE TO PAIN SHE EXPERIENCED SLEEPING IN BED. PATIENT DENIES ANY PAIN THIS AM. DENIES ANY NEEDS. CALL LIGHT WITH IN REACH THROUGH THE NIGHT.
[2019-02-13 06:03] LABS: Albumin, Blood 1.9 g/dL (3.4-5.0); Anion Gap 6 mmol/L (6-16); Blood Urea Nitrogen 32 mg/dL (8-24); Bun/Creatinine Ratio 28.1 (12.0-20.0); CO2, Blood 24 mmol/L (21-32); Calcium, Blood 7.2 mg/dL (8.5-10.1); Chloride, Blood 107 mmol/L (98-108); Creatinine, Blood 1.14 mg/dL (0.40-1.00); Glomerular Filtration Rate 49 (60-); Glucose, Blood 84 mg/dL (70-99); Magnesium, Blood 1.5 mg/dL (1.6-2.4); Phosphorus, Blood 2.6 mg/dL (2.5-4.9); Potassium, Blood 4.1 mmol/L (3.5-5.5); Sodium, Blood 137 mmol/L (136-145); Vancomycin, Random 19.8 ug/mL
--- NOTE | 2019-02-13 10:58 | NUR ---
BLADDER TRAINING INITIATED, PT EDUCATED ON BLADDER TRAINING AND TO CALL WHEN SHE NEEDS TO VOID.
--- NOTE | 2019-02-13 18:15 | NUR ---
SHIFT SUMMARY PT A&Ox4, CALM AND COOPERATIVE WITH CARE. PT UP IN CHAIR T/O SHIFT. UP TO BSC WITH SBA. PT DENIES PAIN, USING HEATING PAD T/O SHIFT. PT SOB WITH EXERTION, USING 3-4 LO2 WITH ACTIVITY, TITRATED TO 2L O2 VIA HF NC AT REST. PT DENIES NAUSEA, REPORTS FEELING FULL QUICKLY. PT RECEIVING IV ANTIBITOICS. DR TSAI AND REBECA NOTIIFED OF REDNESS AND SWELLING IN RIGHT MIDDLE FINGER, NEW ORDERS ENTERED. PT HAD MULTIPLE BM T/O SHIFT. CHEST XRAY COMPLETE THIS AM. GOOD URINE OUTPUT DURING SHIFT. NIEVES IN PLACE, BLADDER TRAINING COMPLETED AND NIEVES D/C PER ORDERS. VSS. NO OTHER ACUTE CHANGES NOTED DURING SHIFT. WILL CONTINUE TO MONITOR UNTIL REPORT GIVEN TO ONCOMING RN.
[2019-02-14 05:35] LABS: Hematocrit 32.4 % (33.0-51.0); Hemoglobin 10.1 g/dL (11.5-16.0)
--- NOTE | 2019-02-14 05:44 | NUR ---
PATIENT SLEPT IN CHAIR ALL NIGHT. PATIENT HAS ONLY HAD 300 CC OUTPUT AND DENIES ANY FULLNESS SENSATION. PATIENT DENIES ANY PAIN. EDUCATED PATIENT ON NUTRITION, STATES SHE DOESN'T EAT MUCH. CALL LIGHT REMAINS WITH IN REACH AND USING APPROPRIATELY.
[2019-02-14 05:55] LABS: Alanine Aminotransfer (ALT/SGP 18 U/L (12-78); Albumin, Blood 2.1 g/dL (3.4-5.0); Albumin/Globulin Ratio 0.4 (0.8-1.8); Alk Phos 67 U/L (50-136); Anion Gap 8 mmol/L (6-16); Aspartate Aminotrans (AST/SGOT 19 U/L (12-37); Bilirubin, Direct 0.1 mg/dL (0.0-0.3); Bilirubin, Indirect 0.1 mg/dL (0.1-0.7); Bilirubin, Total 0.2 mg/dL (0.1-1.0); Blood Urea Nitrogen 34 mg/dL (8-24); Bun/Creatinine Ratio 26.6 (12.0-20.0); CO2, Blood 24 mmol/L (21-32); Calcium, Blood 8.2 mg/dL (8.5-10.1); Chloride, Blood 108 mmol/L (98-108); Creatinine, Blood 1.28 mg/dL (0.40-1.00); Globulin, Blood 4.8 g/dL (2.2-4.0); Glomerular Filtration Rate 43 (60-); Glucose, Blood 118 mg/dL (70-99); Magnesium, Blood 1.5 mg/dL (1.6-2.4); Phosphorus, Blood 2.6 mg/dL (2.5-4.9); Potassium, Blood 4.8 mmol/L (3.5-5.5); Sodium, Blood 140 mmol/L (136-145); Total Protein, Blood 6.9 g/dL (6.4-8.2); Uric Acid, Blood 8.2 mg/dL (2.6-6.0)
[2019-02-14 08:35] LABS: Vancomycin, Random 21.2 ug/mL
[2019-02-14] MEDS ORDERED: ACET325 PO (12:59)
[2019-02-14] MEDS ORDERED: ALBU90OI INH (13:00)
[2019-02-14] MEDS ORDERED: ALLO100 PO (13:00)
[2019-02-14] MEDS ORDERED: ANALGESIC BALM TOP (13:01)
[2019-02-14] MEDS ORDERED: METPRE4DP PO (13:06)
[2019-02-14] MEDS ORDERED: SPIR25 PO (13:06)
[2019-02-14] MEDS ORDERED: TRAM50 PO (13:07)
--- NOTE | 2019-02-14 13:15 | NUR ---
DISCHARGE NOTE PT STABLE FOR DISCHARGE. POWERGLIDE REMOVED AND MEDIPORT DEACCESSED PER PROTOCOL. DISCHARGE INSTRUCTIONS AND DISCHARGE MEDICATIONS REVIEWED WITH PT. PT VERBALIZES UNDERSTANDING AND DENIES QUESTIONS. PT DISCHARGED VIA WHEELCHAIR TO WAITING CAR.
== END 2019-02-14 13:33 | disposition home or self-care (01) | DRG 871 ==
LOC: ER 10:50 → ICUW 14:14 → PCU 14:14 → ICUW 16:47 → PCU 02-09 22:50
PROVIDERS: Emergency Medicine; Family Medicine; Internal Medicine Gastroenterology; Internal Medicine Nephrology; Internal Medicine Pulmonary Disease; Nurse Practitioner Acute Care; Pharmacist; ADMIT Internal Medicine
PROC: 0DD68ZX Extraction of Stomach, Via Natural or Artificial Opening Endoscopic, Diagnostic (ICD-10-PCS; 2019-02-04 12:45)
PROC: 30233N1 Transfusion of Nonautologous Red Blood Cells into Peripheral Vein, Percutaneous Approach (ICD-10-PCS; principal; 2019-02-05)
PROC: 5A09357 Assistance with Respiratory Ventilation, Less than 24 Consecutive Hours, Continuous Positive Airway Pressure (ICD-10-PCS; 2019-02-07)
DX: A41.9 Sepsis, unspecified organism (principal); J96.01 Acute respiratory failure with hypoxia; J15.212 Pneumonia due to Methicillin resistant Staphylococcus aureus; G92 Toxic encephalopathy; N25.81 Secondary hyperparathyroidism of renal origin; K50.00 Crohn's disease of small intestine without complications; N17.9 Acute kidney failure, unspecified; E87.1 Hypo-osmolality and hyponatremia; Z79.82 Long term (current) use of aspirin; N18.3 Chronic kidney disease, stage 3 (moderate); I73.9 Peripheral vascular disease, unspecified; I25.10 Atherosclerotic heart disease of native coronary artery without angina pectoris; I08.0 Rheumatic disorders of both mitral and aortic valves; Z89.611 Acquired absence of right leg above knee; Z87.891 Personal history of nicotine dependence; I95.9 Hypotension, unspecified; E87.6 Hypokalemia; M62.830 Muscle spasm of back; Z86.718 Personal history of other venous thrombosis and embolism; Z90.49 Acquired absence of other specified parts of digestive tract; E83.51 Hypocalcemia; E86.9 Volume depletion, unspecified; K21.9 Gastro-esophageal reflux disease without esophagitis; E87.5 Hyperkalemia; K27.9 Peptic ulcer, site unspecified, unspecified as acute or chronic, without hemorrhage or perforation; E78.5 Hyperlipidemia, unspecified; M10.9 Gout, unspecified; I12.9 Hypertensive chronic kidney disease with stage 1 through stage 4 chronic kidney disease, or unspecified chronic kidney disease
CPT/HCPCS: 36415; 36430; 36600; 51702; 71045; 71046; 72040; 72100; 73030; 76770; 80048; 80053; 80069; 80202; 82248; 82330; 82533; 82728; 82803; 82947; 83540; 83550; 83605; 83735; 84100; 84132; 84145; 84443; 84550; 85014; 85018; 85025; 86850; 86900; 86901; 86923; 87040; 87070; 87077; 87081; 87147; 87186; 87205; 88305; 88342; 93005; 93010; 94640; 94660; 94760; 94761; 94762; 96365; 97110; 97162; 97166; 97530; 97535; 99283; 99285-25; A9270; A9270-GY; C1751; J0610; J0881; J1642; J1644; J1940; J1956; J2405; J2543; J2704; J2920; J3010; J3370; J3475; J3480; J7030; J7040; J7050; J7060; J7120; J7500; J7509; P9016

== ENCOUNTER 2019-03-07 00:01 | Day surgery (SDC) | payer MEDICARE, OTHER ==
[~2019-03-07 00:01] MED LIST changes: +ALBU90OI INH; +ALLO100 PO; +ANALGESIC BALM TOP; +Aspirin EC81 MG PO; +METPRE4DP PO; +MULVITB PO; +ONDA4 PO; +SPIR25 PO
--- NOTE | 2019-03-07 14:35 | NUR ---
PT UP TO BR WITH HELP FROM RN. PT C/O FEELING DIZZY AND SWEATY. VS TAKEN AND BP LOW 72/45. PT HELPED BACK TO ROOM AND LAYING DOWN. WILL RECHECK IN A FEW MINUTES.
[2019-03-07 14:52] LABS: Hematocrit 25.2 % (33.0-51.0); Hemoglobin 8.2 g/dL (11.5-16.0); Mean Corpuscular HGB 31.9 pg (26.0-34.0); Mean Corpuscular HGB Conc 32.5 g/dL (31.5-36.5); Mean Corpuscular Volume 98 fL (80-100); Mean Platelet Volume 12.9 fL (9.1-12.4); NRBC ABSOLUTE 0.04 K/mm3 (0.00-0.02); NRBC Auto 0.8 /100 WBC (0.0-0.2); RDW Coefficient Variation 18.2 % (11.7-14.2); RDW Standard Deviation 56.7 fL (35.1-46.3); Red Blood Cell Count 2.57 M/mm3 (3.80-5.20); White Blood Cell Count 5.12 K/mm3 (4.00-11.30)
[2019-03-07 15:01] LABS: Platelet Count 82 K/mm3 (150-400)
[2019-03-07 15:08] LABS: Alanine Aminotransfer (ALT/SGP 14 U/L (12-78); Albumin, Blood 2.8 g/dL (3.4-5.0); Albumin/Globulin Ratio 0.7 (0.8-1.8); Alk Phos 54 U/L (50-136); Anion Gap 7 mmol/L (6-16); Aspartate Aminotrans (AST/SGOT 20 U/L (12-37); Bilirubin, Direct 0.1 mg/dL (0.0-0.3); Bilirubin, Indirect 0.3 mg/dL (0.1-0.7); Bilirubin, Total 0.4 mg/dL (0.1-1.0); Blood Urea Nitrogen 62 mg/dL (8-24); Bun/Creatinine Ratio 35.8 (12.0-20.0); CO2, Blood 28 mmol/L (21-32); Calcium, Blood 8.4 mg/dL (8.5-10.1); Chloride, Blood 99 mmol/L (98-108); Creatinine, Blood 1.73 mg/dL (0.40-1.00); Glomerular Filtration Rate 30 (60-); Glucose, Blood 96 mg/dL (70-99); Potassium, Blood 3.2 mmol/L (3.5-5.5); Sodium, Blood 134 mmol/L (136-145); Total Protein, Blood 6.8 g/dL (6.4-8.2)
[2019-03-07 15:11] LABS: Phosphorus, Blood 3.9 mg/dL (2.5-4.9)
[2019-03-07 15:24] LABS: BASOPHILS PERCENT MAN 2 % (0-2); EOSINOPHILS PERCENT MAN 6 % (0-6); LYMPHOCYTES ABSOLUTE MAN 1.58 K/mm3 (0.84-5.20); LYMPHOCYTES PERCENT MAN 31 % (21-46); MONOCYTES ABSOLUTE MAN 0.05 K/mm3 (0.16-1.47); MONOCYTES PERCENT MAN 1 % (4-13); NEUTROPHILS ABSOLUTE MAN 3.07 K/mm3 (1.96-9.15); SEG NEUTROPHILS PERCENT MAN 60 % (41-73); TOTAL CELLS COUNTED 100
== END 2019-03-07 16:28 | disposition home or self-care (01) ==
LOC: ATC 00:01 → LAB 00:01 → ATC 13:30
PROVIDERS: Internal Medicine Nephrology
DX: D64.9 Anemia, unspecified (principal); K92.1 Melena; I10 Essential (primary) hypertension; Z79.899 Other long term (current) drug therapy
CPT/HCPCS: 80053; 82248; 84100; 84550; 85025; 96375; 96413; 96415; A9270; J1642; J1720; J7050; Q0163; Q5103

== ENCOUNTER 2019-03-17 00:04 | Day surgery (SDC) | payer MEDICARE, OTHER ==
[2019-03-17 15:08] LABS: Percent Saturation 37.9 % (15.0-50.0)
[2019-03-18] MEDS ORDERED: Zantac150 MG PO (21:30)
[2019-03-18] MEDS ORDERED: Amlodipine Besy10 MG PO (21:39)
== END 2019-03-17 23:48 | disposition home or self-care (01) ==
LOC: ATC 00:04
PROVIDERS: Internal Medicine Hematology & Oncology
DX: E87.6 Hypokalemia (principal); I12.9 Hypertensive chronic kidney disease with stage 1 through stage 4 chronic kidney disease, or unspecified chronic kidney disease; N18.4 Chronic kidney disease, stage 4 (severe); D63.1 Anemia in chronic kidney disease; D50.9 Iron deficiency anemia, unspecified; I25.10 Atherosclerotic heart disease of native coronary artery without angina pectoris; Z88.2 Allergy status to sulfonamides; Z88.5 Allergy status to narcotic agent; Z88.8 Allergy status to other drugs, medicaments and biological substances; Z79.899 Other long term (current) drug therapy
CPT/HCPCS: 36591; 83540; 83550; 84132; J1642

== ENCOUNTER 2019-03-18 15:59 | Day surgery (SDC) | payer MEDICARE, OTHER ==
[2019-03-18 17:37] LABS: Hematocrit 15.5 % (33.0-51.0); Hemoglobin 5.1 g/dL (11.5-16.0)
[2019-03-18 17:48] LABS: Albumin, Blood 2.7 g/dL (3.4-5.0); Anion Gap 10 mmol/L (6-16); Blood Urea Nitrogen 91 mg/dL (8-24); Bun/Creatinine Ratio 36.3 (12.0-20.0); CO2, Blood 27 mmol/L (21-32); Calcium, Blood 7.8 mg/dL (8.5-10.1); Chloride, Blood 95 mmol/L (98-108); Creatinine, Blood 2.51 mg/dL (0.40-1.00); Glomerular Filtration Rate 20 (60-); Glucose, Blood 98 mg/dL (70-99); Magnesium, Blood 1.5 mg/dL (1.6-2.4); Potassium, Blood 3.2 mmol/L (3.5-5.5); Sodium, Blood 132 mmol/L (136-145)
[2019-03-18] MEDS ORDERED: Zantac150 MG PO (21:30)
[2019-03-18] MEDS ORDERED: Amlodipine Besy10 MG PO (21:39)
== END 2019-03-18 23:28 | disposition home or self-care (01) ==
LOC: ATC 15:59
PROVIDERS: Internal Medicine Nephrology
DX: I12.9 Hypertensive chronic kidney disease with stage 1 through stage 4 chronic kidney disease, or unspecified chronic kidney disease (principal); N18.4 Chronic kidney disease, stage 4 (severe); D63.1 Anemia in chronic kidney disease; Z88.2 Allergy status to sulfonamides; Z88.5 Allergy status to narcotic agent; Z88.8 Allergy status to other drugs, medicaments and biological substances; I25.10 Atherosclerotic heart disease of native coronary artery without angina pectoris; Z87.891 Personal history of nicotine dependence
CPT/HCPCS: 80069; 83735; 85014; 85018; J1642

== ENCOUNTER 2019-03-24 13:24 | Day surgery (SDC) | payer MEDICARE, OTHER ==
[~2019-03-24 13:24] MED LIST changes: +Amlodipine Besy10 MG PO
[2019-03-24] MEDS ORDERED: FAMO20 PO (14:54)
[2019-03-24 15:14] LABS: Albumin, Blood 2.6 g/dL (3.4-5.0); Anion Gap 6 mmol/L (6-16); Blood Urea Nitrogen 27 mg/dL (8-24); Bun/Creatinine Ratio 24.1 (12.0-20.0); CO2, Blood 23 mmol/L (21-32); Calcium, Blood 7.6 mg/dL (8.5-10.1); Chloride, Blood 109 mmol/L (98-108); Creatinine, Blood 1.12 mg/dL (0.40-1.00); Glomerular Filtration Rate 50 (60-); Glucose, Blood 100 mg/dL (70-99); Phosphorus, Blood 1.8 mg/dL (2.5-4.9); Potassium, Blood 3.9 mmol/L (3.5-5.5); Sodium, Blood 138 mmol/L (136-145)
== END 2019-03-24 14:41 | disposition home or self-care (01) ==
LOC: ATC 13:24
PROVIDERS: Internal Medicine Nephrology
DX: Z01.812 Encounter for preprocedural laboratory examination (principal); N18.3 Chronic kidney disease, stage 3 (moderate); D63.1 Anemia in chronic kidney disease; Z79.02 Long term (current) use of antithrombotics/antiplatelets; Z79.899 Other long term (current) drug therapy; Z79.82 Long term (current) use of aspirin
CPT/HCPCS: 36591; 80069; 83735; 85018; J1642

== ENCOUNTER 2019-04-01 00:52 | Day surgery (SDC) | payer MEDICARE, OTHER ==
[~2019-04-01 00:52] MED LIST changes: +ATOR80 PO; +K-Dur20 MEQ PO
== END 2019-04-01 23:21 | disposition home or self-care (01) ==
LOC: ATC 00:52
DX: I12.9 Hypertensive chronic kidney disease with stage 1 through stage 4 chronic kidney disease, or unspecified chronic kidney disease (principal); N18.4 Chronic kidney disease, stage 4 (severe); I70.1 Atherosclerosis of renal artery; I25.10 Atherosclerotic heart disease of native coronary artery without angina pectoris; E78.00 Pure hypercholesterolemia, unspecified; D63.1 Anemia in chronic kidney disease; N25.81 Secondary hyperparathyroidism of renal origin; Z79.02 Long term (current) use of antithrombotics/antiplatelets; Z79.899 Other long term (current) drug therapy; Z88.2 Allergy status to sulfonamides; Z88.5 Allergy status to narcotic agent; Z88.1 Allergy status to other antibiotic agents; Z88.8 Allergy status to other drugs, medicaments and biological substances; Z91.041 Radiographic dye allergy status; Z91.011 Allergy to milk products

== ENCOUNTER 2019-04-07 12:32 | Day surgery (SDC) | payer MEDICARE, OTHER ==
[~2019-04-07] VITALS: Ht 154.9 cm; Wt 48.1 kg
--- NOTE | 2019-04-07 16:38 | NUR ---
04/07/19 1638 Bridget Tavarez PROCEDURE BEGAN WITH PATIENT ON LEFT LATERAL, THEN DURING THE PROCEDURE PATIENT WAS REPOSITIONED TO SUPINE, THEN LATERAL RIGHT, AND THEN RETURNED TO LATERAL LEFT.
--- NOTE | 2019-04-07 16:48 | NUR ---
04/07/19 0047 Vanessa Kitchen 1640 MEDIPORT DEACCESSED WITH FLUSHING OF 5ML OF NACL & THEN FLUSHING WITH 5ML(100 UNITS PER ML) OF HEPARIN & CLAMPING OFF AT LAST 1/2ML OF HEPARIN. PT. MEDIPORT SITE COVERED WITH BANDAID. NO BLEEDING NOTED.
[2019-04-12] MEDS ORDERED: Aspir 8181 MG PO (10:17)
[2019-04-12] MEDS ORDERED: CLOP75 PO (10:17)
[2019-04-12] MEDS ORDERED: ATOR80 PO (10:18)
[2019-04-12] MEDS ORDERED: CALC.25 PO (10:18)
[2019-04-12] MEDS ORDERED: Amlodipine Besy10 MG PO (10:18)
[2019-04-12] MEDS ORDERED: TUMS500 MG PO (10:19)
[2019-04-12] MEDS ORDERED: Coreg12.5 MG PO (10:20)
[2019-04-12] MEDS ORDERED: PANT40 PO (10:21)
[2019-04-12] MEDS ORDERED: LOVAZA1 GM PO (10:21)
[2019-04-12] MEDS ORDERED: VITAMIN D32000 UNI3 PO (10:22)
[2019-04-12] MEDS ORDERED: PROCRIT (10:22)
[2019-04-12] MEDS ORDERED: AZAT50 PO (10:22)
[2019-04-12] MEDS ORDERED: FISH OIL 1,0001 EAC1 PO (10:23)
[2019-04-12] MEDS ORDERED: ZOLP5 PO (10:23)
[2019-04-12] MEDS ORDERED: SERT100 PO (10:24)
[2019-04-12] MEDS ORDERED: Zantac150 MG PO (10:24)
[2019-04-12] MEDS ORDERED: Bumetanide2 MG PO (10:25)
[2019-04-12] MEDS ORDERED: ALLO100 PO (10:26)
[2019-04-12] MEDS ORDERED: K-Dur20 MEQ PO (10:26)
[2019-04-12] MEDS ORDERED: OXYC5 PO (10:26)
== END 2019-04-07 16:55 | disposition home or self-care (01) ==
LOC: ORSCSDS 12:32
PROVIDERS: Internal Medicine Gastroenterology
PROC: 0D7B8ZZ Dilation of Ileum, Via Natural or Artificial Opening Endoscopic (ICD-10-PCS; principal; 2019-04-07 14:00)
DX: K50.90 Crohn's disease, unspecified, without complications (principal); D64.9 Anemia, unspecified; R19.7 Diarrhea, unspecified; K57.30 Diverticulosis of large intestine without perforation or abscess without bleeding; K64.8 Other hemorrhoids; K56.699 Other intestinal obstruction unspecified as to partial versus complete obstruction; I48.91 Unspecified atrial fibrillation; Z79.01 Long term (current) use of anticoagulants; Z79.82 Long term (current) use of aspirin; I25.2 Old myocardial infarction; I25.10 Atherosclerotic heart disease of native coronary artery without angina pectoris; J44.9 Chronic obstructive pulmonary disease, unspecified; I12.9 Hypertensive chronic kidney disease with stage 1 through stage 4 chronic kidney disease, or unspecified chronic kidney disease; N18.4 Chronic kidney disease, stage 4 (severe); F17.210 Nicotine dependence, cigarettes, uncomplicated
CPT/HCPCS: C1726; J1642; J2704; J7120

== ENCOUNTER 2019-04-14 14:02 | Day surgery (SDC) | payer MEDICARE, OTHER ==
[~2019-04-14] VITALS: Ht 154.9 cm; Wt 48.2 kg
[~2019-04-14 14:02] MED LIST changes: +Aspir 8181 MG PO; +B-121000 MC2 PO; +Bumetanide1 MG PO; +FISH OIL 1,0001 EAC1 PO; +FOLI1 PO; +VITAMIN D32000 UNI3 PO
--- NOTE | 2019-04-14 15:14 | NUR ---
04/14/[address] AWARE PT TOOK HER PLAVIX YESTERDAY. DR WILL PROCEED WITH CONSULT.
== END 2019-04-14 16:14 | disposition home or self-care (01) ==
LOC: ORSCSDS 14:02
DX: M54.16 Radiculopathy, lumbar region (principal); Z53.9 Procedure and treatment not carried out, unspecified reason
CPT/HCPCS: 87081; J1040

== ENCOUNTER 2019-04-16 09:54 | Emergency (ER) | payer MEDICARE, OTHER ==
[~2019-04-16] VITALS: Ht 154.9 cm; Wt 48.1 kg
[2019-04-16 10:38] LABS: BASOPHILS ABSOLUTE AUTO 0.01 K/mm3 (0.00-0.23); BASOPHILS PERCENT AUTO 0 % (0-2); EOSINOPHILS ABSOLUTE AUTO 0.16 K/mm3 (0.00-0.68); EOSINOPHILS PERCENT AUTO 4 % (0-6); Hemoglobin 6.2 g/dL (11.5-16.0); Mean Corpuscular HGB Conc 32.6 g/dL (31.5-36.5); Mean Corpuscular Volume 95 fL (80-100); Mean Platelet Volume 12.4 fL (9.1-12.4); NRBC ABSOLUTE 0.05 K/mm3 (0.00-0.02); NRBC Auto 1.4 /100 WBC (0.0-0.2); Platelet Count 55 K/mm3 (150-400); RDW Coefficient Variation 21.2 % (11.7-14.2); RDW Standard Deviation 57.5 fL (35.1-46.3); White Blood Cell Count 3.68 K/mm3 (4.00-11.30)
[2019-04-16 10:56] LABS: International Normalized Ratio 0.99; Prothrombin Time Results 10.5 Sec (9.7-11.5)
[2019-04-16 11:01] LABS: Bun/Creatinine Ratio 34.6 (12.0-20.0); Creatinine, Blood 1.27 mg/dL (0.40-1.00); Potassium, Blood 4.5 mmol/L (3.5-5.5)
[2019-04-16 11:23] LABS: IMMATURE GRAN PERCENT AUTO 0 % (0-1); LYMPHOCYTES ABSOLUTE AUTO 2.12 K/mm3 (0.84-5.20); LYMPHOCYTES PERCENT AUTO 58 % (21-46); MONOCYTES ABSOLUTE AUTO 0.12 K/mm3 (0.16-1.47); MONOCYTES PERCENT AUTO 3 % (4-13); NEUTROPHILS ABSOLUTE AUTO 1.27 K/mm3 (1.96-9.15); NEUTROPHILS PERCENT AUTO 35 % (41-73)
[2019-04-16 13:25] LABS: Source, Urine Catheter
[2019-04-16] MEDS ORDERED: Bumetanide2 MG PO (13:36)
[2019-04-16 13:43] LABS: Bilirubin, Urine Neg (Neg); Blood, Urine 1+ (Neg); Glucose Qualitative, Urine Neg (Neg); Ketones, Urine Neg (Neg); Leukocyte Esterase, Urine Neg (Neg); Nitrite, Urine Neg (Neg); Protein, Urine Neg (Neg); Urobilinogen, Urine NORM (Normal)
[2019-04-16] MEDS ORDERED: GABA100 PO (13:44)
[2019-04-16 13:51] LABS: Appearance, Urine Clear (Clear); Color, Urine Yellow (P-Yellow)
[2019-04-16 13:53] LABS: Bacteria Rare /hpf; Red Blood Cells, Urine 0-2 /hpf (0-2); Squamous Epithelial Cells Rare /hpf (Few); White Blood Cells, Urine 0-2 /hpf (0-5)
== END 2019-04-16 16:27 | disposition short-term general hospital (02) ==
LOC: ER 09:54
PROVIDERS: Emergency Medicine
DX: D68.32 Hemorrhagic disorder due to extrinsic circulating anticoagulants (principal); K92.2 Gastrointestinal hemorrhage, unspecified; T45.525A Adverse effect of antithrombotic drugs, initial encounter; T39.015A Adverse effect of aspirin, initial encounter; I35.0 Nonrheumatic aortic (valve) stenosis; K50.90 Crohn's disease, unspecified, without complications; I12.9 Hypertensive chronic kidney disease with stage 1 through stage 4 chronic kidney disease, or unspecified chronic kidney disease; N18.3 Chronic kidney disease, stage 3 (moderate); D63.1 Anemia in chronic kidney disease; I25.10 Atherosclerotic heart disease of native coronary artery without angina pectoris; Z86.718 Personal history of other venous thrombosis and embolism; Z87.891 Personal history of nicotine dependence; Z88.8 Allergy status to other drugs, medicaments and biological substances; Z91.011 Allergy to milk products; Z88.5 Allergy status to narcotic agent; Z88.2 Allergy status to sulfonamides; Z91.041 Radiographic dye allergy status; Z79.899 Other long term (current) drug therapy; Z79.82 Long term (current) use of aspirin; Z79.02 Long term (current) use of antithrombotics/antiplatelets
CPT/HCPCS: 36430; 80048; 81001; 85025; 85610; 86850; 86900; 86901; 86923; 93005; 93010; 96361; 96374; 99285-25; C9113; J7030; P9016

== ENCOUNTER 2019-04-28 15:51 | Day surgery (SDC) | payer MEDICARE, OTHER ==
--- NOTE | 2019-04-16 14:58 | NUR ---
PT SEEN IN ER FOR LAB DRAWS
[~2019-04-28 15:51] MED LIST changes: -B-121000 MC2 PO; -Bumetanide1 MG PO; -FOLI1 PO
[2019-04-29] MEDS ORDERED: Heartburn Relie20 MG PO (14:54)
[2019-04-29] MEDS ORDERED: METO2.5 PO (14:55)
[2019-04-29] MEDS ORDERED: AZAT50 PO (15:25)
[2019-04-29] MEDS ORDERED: B-121000 MC2 PO (15:26)
[2019-04-29] MEDS ORDERED: FOLI400 PO (15:26)
[2019-04-29] MEDS ORDERED: SUCR1 PO (15:26)
[2019-04-29] MEDS ORDERED: ALLEGRA ALLERG180 MG PO (15:28)
== END 2019-04-28 23:12 | disposition home or self-care (01) ==
LOC: ATC 15:51
DX: I12.9 Hypertensive chronic kidney disease with stage 1 through stage 4 chronic kidney disease, or unspecified chronic kidney disease (principal); N18.3 Chronic kidney disease, stage 3 (moderate); D63.1 Anemia in chronic kidney disease; E86.9 Volume depletion, unspecified; N25.81 Secondary hyperparathyroidism of renal origin; D50.9 Iron deficiency anemia, unspecified; E78.00 Pure hypercholesterolemia, unspecified; I25.10 Atherosclerotic heart disease of native coronary artery without angina pectoris; Z87.891 Personal history of nicotine dependence; Z88.1 Allergy status to other antibiotic agents; Z88.2 Allergy status to sulfonamides; Z88.5 Allergy status to narcotic agent; Z88.8 Allergy status to other drugs, medicaments and biological substances; Z91.041 Radiographic dye allergy status; Z79.82 Long term (current) use of aspirin; Z79.02 Long term (current) use of antithrombotics/antiplatelets; Z79.899 Other long term (current) drug therapy
CPT/HCPCS: J1642

== ENCOUNTER 2019-04-29 10:23 | Inpatient (IN) | payer MEDICARE, OTHER ==
[~2019-04-29] VITALS: Ht 154.9 cm; Wt 47.6 kg
[2019-04-29 11:02] LABS: Hematocrit 19.8 % (33.0-51.0); Hemoglobin 6.3 g/dL (11.5-16.0); Mean Corpuscular HGB 31.5 pg (26.0-34.0); Mean Corpuscular HGB Conc 31.8 g/dL (31.5-36.5); Mean Platelet Volume 11.8 fL (9.1-12.4); NRBC ABSOLUTE 0.08 K/mm3 (0.00-0.02); NRBC Auto 1.9 /100 WBC (0.0-0.2); Platelet Count 106 K/mm3 (150-400); RDW Coefficient Variation 20.6 % (11.7-14.2); RDW Standard Deviation 60.1 fL (35.1-46.3)
[2019-04-29 11:03] LABS: Mean Corpuscular Volume 99 fL (80-100)
[2019-04-29 11:30] LABS: BAND PERCENT MAN 4 % (0-8); BASOPHILS PERCENT MAN 0 % (0-2); EOSINOPHILS ABSOLUTE MAN 0.08 K/mm3 (0.00-0.68); EOSINOPHILS PERCENT MAN 2 % (0-6); LYMPHOCYTES ABSOLUTE MAN 1.51 K/mm3 (0.84-5.20); LYMPHOCYTES PERCENT MAN 36 % (21-46); MONOCYTES ABSOLUTE MAN 0.04 K/mm3 (0.16-1.47); MONOCYTES PERCENT MAN 1 % (4-13); NEUTROPHILS ABSOLUTE MAN 2.56 K/mm3 (1.96-9.15); SEG NEUTROPHILS PERCENT MAN 57 % (41-73); TOTAL CELLS COUNTED 100
[2019-04-29 11:35] LABS: Albumin, Blood 2.6 g/dL (3.4-5.0); Albumin/Globulin Ratio 0.7 (0.8-1.8); Bilirubin, Total 0.3 mg/dL (0.1-1.0); Creatinine, Blood 1.8 mg/dL (0.40-1.00); Globulin, Blood 3.8 g/dL (2.2-4.0); Potassium, Blood 4.7 mmol/L (3.5-5.5); Total Protein, Blood 6.4 g/dL (6.4-8.2)
[2019-04-29 12:35] LABS: Source, Urine Clean Catch
[2019-04-29 12:38] LABS: Bilirubin, Urine Neg (Neg); Blood, Urine 4+ (Neg); Glucose Qualitative, Urine Neg (Neg); Ketones, Urine Neg (Neg); Leukocyte Esterase, Urine 3+ (Neg); Nitrite, Urine Pos (Neg); Protein, Urine 2+ (Neg); Specific Gravity, Urine 1.015 (1.003-1.022); Urobilinogen, Urine NORM (Normal)
[2019-04-29 12:49] LABS: Appearance, Urine Cloudy (Clear); Color, Urine Pale Yellow (P-Yellow)
[2019-04-29 12:51] LABS: Bacteria Many /hpf; Squamous Epithelial Cells Few /hpf (Few); White Blood Cells, Urine TNTC /hpf (0-5)
[2019-04-29] MEDS ORDERED: Heartburn Relie20 MG PO (14:54)
[2019-04-29] MEDS ORDERED: METO2.5 PO (14:55)
[2019-04-29] MEDS ORDERED: AZAT50 PO (15:25)
[2019-04-29] MEDS ORDERED: B-121000 MC2 PO (15:26)
[2019-04-29] MEDS ORDERED: SUCR1 PO (15:26)
[2019-04-29] MEDS ORDERED: FOLI400 PO (15:26)
[2019-04-29] MEDS ORDERED: ALLEGRA ALLERG180 MG PO (15:28)
--- NOTE | 2019-04-29 17:00 | NUR ---
pt arrived to pcu 1 via gurney from ed. report was obtained, pt is a/ox3, pleasant and cooperative with care, follows commands well, denies pain, except a h/a, lungs are clear t/o, resp even and unlabored, no cough noted, hrr, tele in place running sr per monitor, see strip, no edema noted, has a raka, iv site is mediport accessed infusing 2nd unit of prbc, vs stable, afebrile, btx4, abd flat soft is tender in rlq, voids without diff, skin c/w/d, maew, pablo, call light in reach.
--- NOTE | 2019-04-29 18:14 | NUR ---
pt is being transferred to [facility], transport is here to take her up there, report was called, pt had a small amount of f.l. did hold bumex for the trip, left via gurney with transmission and coordination engineer. saline was hungs once prbc were done at o to keep mediport open.
== END 2019-04-29 18:20 | disposition short-term general hospital (02) | DRG 378 ==
LOC: ER 10:23 → PCU 15:01
PROVIDERS: Emergency Medicine; Physician Assistant; ADMIT Internal Medicine
PROC: 30233N1 Transfusion of Nonautologous Red Blood Cells into Peripheral Vein, Percutaneous Approach (ICD-10-PCS; principal; 2019-04-29)
DX: K62.5 Hemorrhage of anus and rectum (principal); D62 Acute posthemorrhagic anemia; N39.0 Urinary tract infection, site not specified; K50.90 Crohn's disease, unspecified, without complications; N18.3 Chronic kidney disease, stage 3 (moderate); Z95.1 Presence of aortocoronary bypass graft; I73.9 Peripheral vascular disease, unspecified; I25.10 Atherosclerotic heart disease of native coronary artery without angina pectoris; I12.9 Hypertensive chronic kidney disease with stage 1 through stage 4 chronic kidney disease, or unspecified chronic kidney disease; Z86.718 Personal history of other venous thrombosis and embolism; I08.0 Rheumatic disorders of both mitral and aortic valves; Z89.611 Acquired absence of right leg above knee; Z90.49 Acquired absence of other specified parts of digestive tract; Z89.412 Acquired absence of left great toe; Z90.81 Acquired absence of spleen; Z79.82 Long term (current) use of aspirin
CPT/HCPCS: 36430; 78306; 80053; 81001; 83735; 85025; 86850; 86900; 86901; 86923; 87077; 87086; 87186; 96365; 99285-25; A9270; A9503; J0696; J7030; P9016

== ENCOUNTER 2019-05-31 00:27 | Day surgery (SDC) | payer MEDICARE, OTHER ==
[~2019-05-31 00:27] MED LIST changes: +B-121000 MC2 PO; +Heartburn Relie20 MG PO
[2019-05-31] MEDS ORDERED: GABA300 PO (14:22)
[2019-05-31 14:24] LABS: Source, Urine Clean Catch
[2019-05-31 14:42] LABS: Bilirubin, Urine Neg (Neg); Blood, Urine Neg (Neg); Glucose Qualitative, Urine Neg (Neg); Ketones, Urine Neg (Neg); Leukocyte Esterase, Urine 2+ (Neg); Nitrite, Urine Neg (Neg); Protein, Urine Neg (Neg); Urobilinogen, Urine NORM (Normal)
[2019-05-31 14:57] LABS: Percent Saturation 16.2 % (15.0-50.0)
[2019-05-31 14:58] LABS: Alanine Aminotransfer (ALT/SGP 18 U/L (12-78); Albumin/Globulin Ratio 0.7 (0.8-1.8); Alk Phos 55 U/L (50-136); Anion Gap 8 mmol/L (6-16); Aspartate Aminotrans (AST/SGOT 21 U/L (12-37); Bilirubin, Total 0.4 mg/dL (0.1-1.0); Blood Urea Nitrogen 42 mg/dL (8-24); Bun/Creatinine Ratio 23.3 (12.0-20.0); CO2, Blood 27 mmol/L (21-32); Calcium, Blood 9.6 mg/dL (8.5-10.1); Chloride, Blood 102 mmol/L (98-108); Globulin, Blood 4.5 g/dL (2.2-4.0); Glomerular Filtration Rate 29 (60-); Glucose, Blood 87 mg/dL (70-99); Potassium, Blood 3.6 mmol/L (3.5-5.5); Sodium, Blood 137 mmol/L (136-145); Total Protein, Blood 7.5 g/dL (6.4-8.2); Troponin I <0.015 ng/mL (0.000-0.040)
[2019-05-31 15:12] LABS: Appearance, Urine Clear (Clear); Color, Urine Yellow (P-Yellow)
[2019-05-31 15:13] LABS: Bacteria Rare /hpf; Red Blood Cells, Urine 0-2 /hpf (0-2); Squamous Epithelial Cells Few /hpf (Few); White Blood Cells, Urine 25-50 /hpf (0-5)
[2019-05-31 15:58] LABS: BASOPHILS ABSOLUTE AUTO 0.05 K/mm3 (0.00-0.23); BASOPHILS PERCENT AUTO 1 % (0-2); EOSINOPHILS ABSOLUTE AUTO 0.34 K/mm3 (0.00-0.68); EOSINOPHILS PERCENT AUTO 4 % (0-6); Hemoglobin 10.3 g/dL (11.5-16.0); IMMATURE GRAN ABSOLUTE AUTO 0.05 K/mm3 (0.00-0.10); IMMATURE GRAN PERCENT AUTO 1 % (0-1); LYMPHOCYTES ABSOLUTE AUTO 3.11 K/mm3 (0.84-5.20); LYMPHOCYTES PERCENT AUTO 35 % (21-46); MONOCYTES ABSOLUTE AUTO 0.75 K/mm3 (0.16-1.47); MONOCYTES PERCENT AUTO 8 % (4-13); Mean Platelet Volume 12.1 fL (9.1-12.4); NEUTROPHILS ABSOLUTE AUTO 4.59 K/mm3 (1.96-9.15); NEUTROPHILS PERCENT AUTO 52 % (41-73); NRBC ABSOLUTE 0.12 K/mm3 (0.00-0.02); NRBC Auto 1.3 /100 WBC (0.0-0.2); Platelet Count 115 K/mm3 (150-400); White Blood Cell Count 8.89 K/mm3 (4.00-11.30)
[2019-05-31 16:16] LABS: Mean Corpuscular HGB 33.7 pg (26.0-34.0); Mean Corpuscular HGB Conc 31.2 g/dL (31.5-36.5); Mean Corpuscular Volume 108 fL (80-100); Red Blood Cell Count 3.06 M/mm3 (3.80-5.20)
== END 2019-05-31 13:55 | disposition home or self-care (01) ==
LOC: ATC 00:27
PROVIDERS: Nurse Practitioner Acute Care
DX: I12.9 Hypertensive chronic kidney disease with stage 1 through stage 4 chronic kidney disease, or unspecified chronic kidney disease (principal); N18.4 Chronic kidney disease, stage 4 (severe); K50.012 Crohn's disease of small intestine with intestinal obstruction; N25.81 Secondary hyperparathyroidism of renal origin; D63.1 Anemia in chronic kidney disease; D50.9 Iron deficiency anemia, unspecified; E78.00 Pure hypercholesterolemia, unspecified; E55.9 Vitamin D deficiency, unspecified; E78.5 Hyperlipidemia, unspecified; D64.9 Anemia, unspecified; M19.90 Unspecified osteoarthritis, unspecified site; J44.9 Chronic obstructive pulmonary disease, unspecified; I10 Essential (primary) hypertension; I35.0 Nonrheumatic aortic (valve) stenosis; I25.10 Atherosclerotic heart disease of native coronary artery without angina pectoris; Z79.82 Long term (current) use of aspirin; Z79.02 Long term (current) use of antithrombotics/antiplatelets; Z79.899 Other long term (current) drug therapy; Z88.1 Allergy status to other antibiotic agents; Z88.2 Allergy status to sulfonamides; Z88.5 Allergy status to narcotic agent; Z88.8 Allergy status to other drugs, medicaments and biological substances; Z91.041 Radiographic dye allergy status; Z87.891 Personal history of nicotine dependence; Z90.49 Acquired absence of other specified parts of digestive tract; Z95.5 Presence of coronary angioplasty implant and graft
CPT/HCPCS: 36591; 80053; 81001; 82728; 83540; 83550; 83880; 84100; 84484; 85025; 87077; 87086; 87186; J1642

== ENCOUNTER 2019-06-10 02:30 | Day surgery (SDC) | payer MEDICARE, OTHER ==
[2019-06-10 12:19] LABS: Bun/Creatinine Ratio 30.4 (12.0-20.0); Calcium, Blood 10.8 mg/dL (8.5-10.1); Creatinine, Blood 1.94 mg/dL (0.40-1.00); Potassium, Blood 4.1 mmol/L (3.5-5.5)
--- NOTE | 2019-06-10 12:38 | NUR ---
LAB RESULTS FAXED TO [facility] DR FELDMAN PER PT REQUEST
== END 2019-06-10 11:48 | disposition home or self-care (01) ==
LOC: ATC 02:30
DX: I35.0 Nonrheumatic aortic (valve) stenosis (principal); I10 Essential (primary) hypertension; E78.5 Hyperlipidemia, unspecified; K21.9 Gastro-esophageal reflux disease without esophagitis; J44.9 Chronic obstructive pulmonary disease, unspecified; I73.9 Peripheral vascular disease, unspecified; M19.90 Unspecified osteoarthritis, unspecified site; D63.8 Anemia in other chronic diseases classified elsewhere; Z95.5 Presence of coronary angioplasty implant and graft; Z87.891 Personal history of nicotine dependence; Z79.02 Long term (current) use of antithrombotics/antiplatelets; Z79.82 Long term (current) use of aspirin; Z79.899 Other long term (current) drug therapy; Z89.511 Acquired absence of right leg below knee; Z88.1 Allergy status to other antibiotic agents; Z88.2 Allergy status to sulfonamides; Z88.5 Allergy status to narcotic agent; Z88.8 Allergy status to other drugs, medicaments and biological substances; Z86.718 Personal history of other venous thrombosis and embolism; Z86.711 Personal history of pulmonary embolism
CPT/HCPCS: 36591; 80048; J1642

== ENCOUNTER 2019-07-24 13:50 | Emergency (ER) | payer MEDICARE, OTHER ==
[~2019-07-24] VITALS: Ht 154.9 cm; Wt 47.6 kg
[~2019-07-24 13:50] MED LIST changes: +ALLEGRA ALLERGY60 MG PO
[2019-07-24 14:36] LABS: BASOPHILS ABSOLUTE AUTO 0.04 K/mm3 (0.00-0.23); BASOPHILS PERCENT AUTO 1 % (0-2); EOSINOPHILS ABSOLUTE AUTO 0.04 K/mm3 (0.00-0.68); EOSINOPHILS PERCENT AUTO 1 % (0-6); Hematocrit 28.3 % (33.0-51.0); Hemoglobin 9.2 g/dL (11.5-16.0); IMMATURE GRAN ABSOLUTE AUTO 0.03 K/mm3 (0.00-0.10); IMMATURE GRAN PERCENT AUTO 1 % (0-1); LYMPHOCYTES PERCENT AUTO 32 % (21-46); MONOCYTES ABSOLUTE AUTO 0.15 K/mm3 (0.16-1.47); MONOCYTES PERCENT AUTO 3 % (4-13); Mean Corpuscular HGB 32.2 pg (26.0-34.0); Mean Corpuscular HGB Conc 32.5 g/dL (31.5-36.5); Mean Corpuscular Volume 99 fL (80-100); NEUTROPHILS ABSOLUTE AUTO 3.36 K/mm3 (1.96-9.15); NEUTROPHILS PERCENT AUTO 63 % (41-73); NRBC ABSOLUTE 0.05 K/mm3 (0.00-0.02); NRBC Auto 0.9 /100 WBC (0.0-0.2); RDW Coefficient Variation 18.6 % (11.7-14.2); RDW Standard Deviation 56.5 fL (35.1-46.3); Red Blood Cell Count 2.86 M/mm3 (3.80-5.20); White Blood Cell Count 5.32 K/mm3 (4.00-11.30)
[2019-07-24 14:41] LABS: Platelet Count 25 K/mm3 (150-400)
[2019-07-24 14:55] LABS: Albumin, Blood 2.8 g/dL (3.4-5.0); Albumin/Globulin Ratio 0.7 (0.8-1.8); Bilirubin, Total 0.9 mg/dL (0.1-1.0); Calcium, Blood 9.3 mg/dL (8.5-10.1); Creatinine, Blood 1.25 mg/dL (0.40-1.00); Globulin, Blood 3.8 g/dL (2.2-4.0); Potassium, Blood 4.2 mmol/L (3.5-5.5); Total Protein, Blood 6.6 g/dL (6.4-8.2)
[2019-07-24 15:08] LABS: Troponin I 51.8 ng/mL (0.000-0.040)
[2019-07-24] MEDS ORDERED: CARVEDILOL6.25 MG PO (15:22)
[2019-07-24] MEDS ORDERED: GABA100 PO (15:23)
[2019-07-24] MEDS ORDERED: ALLOPURINOL100 M1 PO (15:23)
[2019-07-24] MEDS ORDERED: Bumetanide1 MG PO (15:23)
[2019-07-24] MEDS ORDERED: SPIRONOLACTONE25 MG PO (15:24)
[2019-07-24] MEDS ORDERED: OMEGA-3 ACID ETH1 GM PO (15:25)
[2019-07-24] MEDS ORDERED: TUMS500 MG PO (15:47)
[2019-07-24] MEDS ORDERED: Remicade100 MG IV (15:48)
[2019-07-24] MEDS ORDERED: MELA3 PO (15:48)
[2019-07-24] MEDS ORDERED: NITR.4SL SL (15:49)
[2019-07-24] MEDS ORDERED: OXYC5 PO (15:50)
[2019-07-24] MEDS ORDERED: Vitamin D2000 UNIT PO (15:51)
[2019-07-24] MEDS ORDERED: B-121000 MC4 PO (15:51)
[2019-07-24] MEDS ORDERED: VITB2 PO (15:51)
== END 2019-07-24 17:54 | disposition short-term general hospital (02) ==
LOC: ER 13:50
PROVIDERS: Physician Assistant
DX: I21.4 Non-ST elevation (NSTEMI) myocardial infarction (principal); D69.6 Thrombocytopenia, unspecified; J96.01 Acute respiratory failure with hypoxia; J81.1 Chronic pulmonary edema; I12.9 Hypertensive chronic kidney disease with stage 1 through stage 4 chronic kidney disease, or unspecified chronic kidney disease; N18.9 Chronic kidney disease, unspecified; J44.9 Chronic obstructive pulmonary disease, unspecified
CPT/HCPCS: 71046; 80053; 84484; 85025; 93005; 93010; 96374; 99285-25; A9270-GY; J1940